=== PATIENT | male | born 1975 | race Caucasian/White ===

== ENCOUNTER 2020-04-14 16:06 | Emergency (ER) | payer OTHER, SELFPAY ==
[2020-04-14 16:09] VITALS: BP 120/71; PULSE 64; RESP 18; TEMP 37; O2SAT 98
--- NOTE | 2020-04-14 16:15 | DI.RAD.S_ITS ---
PROCEDURE: XR CHEST 1V INDICATIONS: chest pain TECHNIQUE: One view of the chest was acquired. COMPARISON: None. FINDINGS: Surgical changes and devices: None. Lungs and pleura: Lungs are clear. No pleural effusions or pneumothorax. Mediastinum: Mediastinal contours appear normal. Heart size is normal. Bones and chest wall: No suspicious bony lesions. Overlying soft tissues appear unremarkable. IMPRESSION: No acute cardiopulmonary pathology. Dictated by: Santos Butts M.D. on 04/14/2020 at 16:56 Approved by: Santos Butts M.D. on 04/14/2020 at 16:57
[2020-04-14 16:35] LABS: Add Manual Diff / Slide Review NO; Basophils Absolute Auto 100 /uL (0-100); Eosinophils Absolute Auto 200 /uL (0-450); Hematocrit 43.2 % (41-53); Hemoglobin 14.8 g/dL (13.5-17.5); Lymphocytes Absolute Auto 1600 /uL (1100-4500); Lymphocytes Percent Auto 34.2 % (25-40); Mean Corpuscular HGB Conc 34.2 % (30-36); Mean Corpuscular Hemoglobin 30.3 PG (26-34); Mean Corpuscular Volume 88.7 fL (80-100); Monocytes Absolute Auto 500 /uL (0-900); Monocytes Percent Auto 9.9 % (3-14); Neutrophils Absolute Auto 2400 /uL (1500-7000); Neutrophils Percent Auto 49.9 % (50-75); Platelet Count 200 X10^3/uL (150-400); Red Blood Cell Count 4.87 X10^6/uL (4.5-5.9); White Blood Cell Count 4.8 X10^3/uL (4.5-11.0)
[2020-04-14 16:36] VITALS: PULSE 61; O2SAT 99
--- NOTE | 2020-04-14 16:37 | ED.ARRPALP ---
HPI - Arrhythmia/Palpitations General Chief Complaint: Arrhythmia/Palpitations Stated Complaint: IRREGULAR HEART BEAT SKIPPING A BEAT Time Seen by Provider: 04/14/20 16:35 Source: patient Mode of arrival: Ambulatory History of Present Illness HPI narrative: 44-year-old gentleman with increasing palpitations over the last couple of months. He finds that he notices the palpitations more when he is slowing down to rest or to sleep. They do not cause any pain and are not associated with dyspnea or diaphoresis. They do not seem to increase with exertion nor bother him during the day or limit his activities. 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 He describes no fevers, cough, chest pain, abdominal pain, vomiting, diarrhea, exertional dyspnea, lower extremity edema. Review of Systems Review of Systems Narrative: Remainder of review of systems including constitutional, ENT, cardiovascular, respiratory, GI, , musculoskeletal, skin, neurologic and psychiatric systems reviewed and are unremarkable except as noted in HPI. Patient History Social History Smoking Status: Former smoker Smoking Status: Former smoker alcohol intake frequency: 0-2 drinks per day Exam Narrative Exam Narrative: General: Healthy appearing, in no acute distress. Able to give a complete and coherent history. Well-nourished well-developed HEENT: Moist mucous membranes, normal sclera with reactive pupils, Neck: No JVD, supple Respiratory: Lungs are clear to auscultation, no wheezing no rales no rhonchi. Full and symmetrical air movement Cardiac: Regular rate and rhythm no murmurs no bruits Abdomen: Soft nontender good bowel tones, no flank pain Skin: Warm and dry, no rashes Neurologic: Grossly neurologically intact with no obvious asymmetries or abnormalities Extremities: No trauma, well perfused Psych: Cooperative, appropriate insight and affect Initial Vital Signs Initial Vital Signs: Vital Signs Temperature 98.6 F 04/14/20 16:09 Pulse Rate 64 04/14/20 16:09 Respiratory Rate 18 04/14/20 16:09 Blood Pressure 120/71 04/14/20 16:09 Pulse Oximetry 98 04/14/20 16:09 Course Orders Ordered: ED Orders 04/14/20 16:15 XR chest 1V Stat Magnesium Stat TSH [Thyroid Stimulating Hormone] Stat EKG-12 Lead Stat 04/14/20 16:25 Complete Blood Count AUTO DIFF Stat Comprehensive Metabolic Panel Stat Lipase Stat Partial Thromboplastin Time Stat Prothrombin Time INR Stat Troponin & CK Cardiac Panel Stat Vital Signs Vital signs: Vital Signs - 8 hr 04/14/20 16:09 04/14/20 16:36 04/14/20 16:39 Temperature 98.6 F Pulse Rate 64 61 61 Respiratory Rate 18 Blood Pressure 120/71 104/70 Pulse Oximetry 98 99 98 04/14/20 17:00 04/14/20 17:30 Temperature Pulse Rate 61 57 L Respiratory Rate 11 L 11 L Blood Pressure 106/69 113/71 Pulse Oximetry 100 100 MDM - Arrhythmia/Palpitations Medical Records Attestation: I reviewed the patient's medical records. Lab Data Attestation: I reviewed the patient's lab results. Result diagrams: 04/14/20 16:25 04/14/20 16:25 Labs: Lab Results 04/14/20 04/14/20 04/14/20 Range/Units 16:15 16:15 16:25 WBC 4.8 (4.5-11.0) X10^3/uL RBC 4.87 (4.5-5.9) X10^6/uL Hgb 14.8 (13.5-17.5) g/dL Hct 43.2 (41-53) % MCV 88.7 (80-100) fL MCH 30.3 (26-34) PG MCHC 34.2 (30-36) % RDW 13.0 (11.6-14.8) % Plt Count 200 (150-400) X10^3/uL Neut % (Auto) 49.9 L (50-75) % Lymph % (Auto) 34.2 (25-40) % [place] % (Auto) 9.9 (3-14) % Eos % (Auto) 4.0 (2-4) % Baso % (Auto) 2.0 (0-2) % Neut # (Auto) 2400 (2049-9227) /uL Lymph # (Auto) 1600 (3217-9025) /uL [place] # (Auto) 500 (0-900) /uL Eos # (Auto) 200 (0-450) /uL Baso # (Auto) 100 (0-100) /uL PT (10.1-12.7) SECONDS INR (0.9-1.3) APTT (26.4-36.2) SECONDS Sodium (137-145) mmol/L Potassium (3.4-5.1) mmol/L Chloride (98-107) mmol/L Carbon Dioxide (22-32) mmol/L BUN (9-20) mg/dL Creatinine (0.66-1.25) mg/dL Estimated GFR (>60) mL/min BUN/Creatinine Ratio (6-22) Glucose (70-100) mg/dL Calcium (8.4-10.2) mg/dL Magnesium 2.1 (1.6-2.3) mg/dL Total Bilirubin (0.2-1.3) mg/dL AST (17-59) IU/L ALT (<50) IU/L Alkaline Phosphatase (38-126) U/L Total Creatine Kinase (55-170) U/L CK-MB (CK-2) (<2.37) ng/mL CK-MB (CK-2) Rel Index (1.5-5.0) % Troponin I (0.01-0.034) ng/mL Total Protein (6.3-8.2) g/dL Albumin (3.5-5.0) g/dL Globulin (1.7-4.1) g/dL Albumin/Globulin Ratio (1.0-2.8) Lipase (23-300) U/L TSH 2.03 (0.47-4.68) uIU/mL 04/14/20 04/14/20 Range/Units 16:25 16:25 WBC (4.5-11.0) X10^3/uL RBC (4.5-5.9) X10^6/uL Hgb (13.5-17.5) g/dL Hct (41-53) % MCV (80-100) fL MCH (26-34) PG MCHC (30-36) % RDW (11.6-14.8) % Plt Count (150-400) X10^3/uL Neut % (Auto) (50-75) % Lymph % (Auto) (25-40) % [place] % (Auto) (3-14) % Eos % (Auto) (2-4) % Baso % (Auto) (0-2) % Neut # (Auto) (3755-5165) /uL Lymph # (Auto) (5465-9489) /uL [place] # (Auto) (0-900) /uL Eos # (Auto) (0-450) /uL Baso # (Auto) (0-100) /uL PT 12.0 (10.1-12.7) SECONDS INR 1.0 (0.9-1.3) APTT 35 (26.4-36.2) SECONDS Sodium 138 (137-145) mmol/L Potassium 4.0 (3.4-5.1) mmol/L Chloride 104 (98-107) mmol/L Carbon Dioxide 33 H (22-32) mmol/L BUN 17 (9-20) mg/dL Creatinine 1.09 (0.66-1.25) mg/dL Estimated GFR > 60.0 (>60) mL/min BUN/Creatinine Ratio 15.6 (6-22) Glucose 92 (70-100) mg/dL Calcium 9.5 (8.4-10.2) mg/dL Magnesium (1.6-2.3) mg/dL Total Bilirubin 0.5 (0.2-1.3) mg/dL AST 29 (17-59) IU/L ALT 20 (<50) IU/L Alkaline Phosphatase 55 (38-126) U/L Total Creatine Kinase 501 H (55-170) U/L CK-MB (CK-2) 1.04 (<2.37) ng/mL CK-MB (CK-2) Rel Index 0.2 L (1.5-5.0) % Troponin I < 0.012 (0.01-0.034) ng/mL Total Protein 7.4 (6.3-8.2) g/dL Albumin 4.6 (3.5-5.0) g/dL Globulin 2.8 (1.7-4.1) g/dL Albumin/Globulin Ratio 1.6 (1.0-2.8) Lipase 144 (23-300) U/L TSH (0.47-4.68) uIU/mL Urine Dip Bedside Urine Glucose Negative Bedside Urine Bilirubin - Negative Bedside Urine Ketone - Negative Bedside Urine Occult Blood - Negative Bedside Urine pH 6.5 Bedside Urine Protein - Negative Bedside Urine Urobilinogen - Negative Bedside Urine Nitrite - Negative Bedside Urine Leukocytes - Negative Esterase Imaging Data Chest x-ray: Radiologist's Impresson: FINDINGS: Surgical changes and devices: None. Lungs and pleura: Lungs are clear. No pleural effusions or pneumothorax. Mediastinum: Mediastinal contours appear normal. Heart size is normal. Bones and chest wall: No suspicious bony lesions. Overlying soft tissues appear unremarkable. IMPRESSION: No acute cardiopulmonary pathology. Dictated by: Santos Butts M.D. on 04/14/2020 at 16:56 ECG Data Attestation: I personally reviewed and interpreted this ECG as follows: Interpretation: Sinus rhythm Are normal intervals, normal axis No acute ischemic changes Normal EKG MDM Narrative Medical decision making narrative: Lab workup and findings are unremarkable. He had an obvious PAC while we were chatting that clearly reproduced the symptoms of which he complained. No evidence of hyperthyroidism, acute coronary syndrome, significant chest pathology or other abnormalities that might explain his symptoms. Findings are reviewed in detail. He is given copies of labs and workup [place] He is safe for home discharge Discharge Plan Departure Patient Disposition: Home Clinical Impression: PAC (premature atrial contraction) Instructions: DI for Arrhythmias Activity Restrictions/Additional Instructions: Thank you for coming in to the emergency room today In the 2 hours that you are on telemetry (continuous heart rate monitor) there were no life-threatening arrhythmias appreciated. Your EKG was entirely reassuring. As we were talking, you had a PAC (premature atrial contraction) and described that as the palpitation that has been concerning you. This is a benign finding, not associated with heart attacks or any other risk factors for cardiac disease. The remainder of your workup was equally remarkable with normal blood work, normal thyroid level, and a normal chest x-ray. The things I would recommend at this point to help with the symptoms include decreasing caffeine as much as your able to tolerate, resuming your healthy exercise routine and prioritizing sleep to try for at least 8 hours night. If the PACs continue and continue to be bothersome for you, we can put you on a beta-ciara (a blood pressure and heart rate control medication) for symptomatic relief. [place]. I find your workup very reassuring and I wish you the best I have given you copies of your blood work, EKG, chest x-ray to [place]'s workup
[2020-04-14 16:39] VITALS: BP 104/70; PULSE 61; O2SAT 98
[2020-04-14 16:43] LABS: PTT Partial Thromboplastin Tim 35 SECONDS (26.4-36.2)
[2020-04-14 16:47] LABS: Alanine Aminotransferase 20 IU/L (<50); Albumin 4.6 g/dL (3.5-5.0); Albumin Globulin Ratio 1.6 (1.0-2.8); Alkaline Phosphatase 55 U/L (38-126); Aspartate Aminotransferase 29 IU/L (17-59); BUN Creatinine Ratio 15.6 (6-22); Bilirubin Total 0.5 mg/dL (0.2-1.3); Blood Urea Nitrogen 17 mg/dL (9-20); Calcium 9.5 mg/dL (8.4-10.2); Carbon Dioxide 33 mmol/L (22-32); Chloride 104 mmol/L (98-107); Creatine Kinase 501 U/L (55-170); Estimated Glomerular Filt Rate > 60.0 mL/min (>60); Globulin 2.8 g/dL (1.7-4.1); Glucose 92 mg/dL (70-100); HEMOLYSIS < 15 (0-50); Lipase 144 U/L (23-300); Sodium 138 mmol/L (137-145); Total Protein 7.4 g/dL (6.3-8.2)
[2020-04-14 16:58] LABS: Magnesium 2.1 mg/dL (1.6-2.3)
[2020-04-14 16:58] LABS: Troponin I < 0.012 ng/mL (0.01-0.034)
[2020-04-14 17:00] VITALS: BP 106/69; PULSE 61; RESP 11; O2SAT 100
[2020-04-14 17:02] LABS: CKMB % Relative Index 0.2 % (1.5-5.0); Creatine Kinase MB 1.04 ng/mL (<2.37)
[2020-04-14 17:29] LABS: Thyroid Stimulating Hormone 2.03 uIU/mL (0.47-4.68)
[2020-04-14 17:30] VITALS: BP 113/71; PULSE 57; RESP 11; O2SAT 100
== END 2020-04-14 19:26 | disposition home or self-care (01) ==
PROVIDERS: Emergency Provider Emergency Medicine
DX: I49.1 Atrial premature depolarization (principal); R07.9 Chest pain, unspecified
CPT/HCPCS: 36415; 71045; 80053; 81003; 82550; 82553; 83690; 83735; 84443; 84484; 85025; 85610; 85730; 93005; 93010; 99283; 99284

== ENCOUNTER → 2021-04-05 13:00 | Outpatient (CLI) | payer OTHER, SELFPAY ==
[2021-04-05 13:38] LABS: COVID19 -Nasal RAPID Negative (Negative)
== END ==
PROVIDERS: Referring Provider Internal Medicine; Visit Provider Internal Medicine
DX: Z20.822 Contact with and (suspected) exposure to COVID-19 (principal)
CPT/HCPCS: 87635; C9803

== ENCOUNTER → 2021-04-06 13:25 | Outpatient (CLI) | payer OTHER, SELFPAY ==
--- NOTE | 2021-04-09 08:51 | PM.PFT.1 ---
Pulmonary Function Test Referral & Results Date Patient Seen: 04/06/21 Results: The spirometry demonstrates an FVC of 6.01 L which is 101% of predicted. The FEV1 was measured at 4.11 L which is 88% of predicted. The FEV1/FVC ratio was 68 which is 86% of predicted. The maximum voluntary ventilation was normal Interpretation: This study demonstrates probably normal forced spirometry. The maybe a slight reduction FEV1 and FEV1/FVC ratio suggesting the possibility of mild obstructive lung disease Clinical correlation suggested
== END ==
PROVIDERS: Referring Provider Internal Medicine; Visit Provider Internal Medicine
DX: J45.990 Exercise induced bronchospasm (principal)
CPT/HCPCS: 94060

== ENCOUNTER → 2021-05-01 15:15 | Outpatient (CLI) | payer OTHER, SELFPAY ==
--- NOTE | 2021-05-01 | DI.MRI.S_ITS ---
PROCEDURE: MR LUMBAR SPINE WO CON INDICATIONS: Radiculopathy, lumbar region TECHNIQUE: Noncontrast sagittal T1 spin echo and T2 fast echo, sagittal STIR, axial T1 and T2 fast spin echo through the lumbar spine. In cases with scoliosis, additional coronal T2 fast spin echo may be performed. COMPARISON: None. FINDINGS: Straightening of the usual lumbar lordosis. Otherwise normal alignment. Vertebral body heights maintained. No suspicious focal marrow signal abnormality or bone marrow edema. Disc desiccation and disc height loss at both L4-L5 and L5-S1, with small annular fissures at both levels, in the bilateral foraminal zones at L4-L5 and in the left paracentral/subarticular zones at L5-S1. Normal position and appearance of the conus. Regional soft tissues unremarkable. T12-L1: No spinal canal or neural foraminal stenosis. L1-L2: No spinal canal or neural foraminal stenosis. L2-L3: Disc bulge flattens the ventral thecal sac. No mass effect upon the traversing L3 nerve roots. No neural foraminal stenosis. L3-L4: Disc bulge flattens the ventral thecal sac. No mass effect upon the traversing L4 nerve roots. No neural foraminal stenosis. Mild facet hypertrophy. L4-L5: Disc bulge flattens the ventral thecal sac. Disc material abuts but does not obviously displace the descending L5 nerve roots within the subarticular zones. Foraminal components of the disc bulge and mild facet hypertrophy combine to produce mild bilateral neural foraminal stenosis. Small foraminal zone annular fissures bilaterally. L5-S1: Diffuse disc bulge with a superimposed extrusion in the left paracentral, subarticular, and foraminal zones. There is probable impingement of the descending left S1 nerve roots in the left subarticular zone (series 4, image 33). Mild displacement of the right S1 nerve roots in the right subarticular zone. Mild neural foraminal narrowing on the left due to foraminal component of the disc extrusion and facet hypertrophy. IMPRESSION: Probable impingement of the descending left S1 nerve roots within the left subarticular zone at the L5-S1 level due to a disc extrusion with associated annular fissure. Degenerative changes at L4-L5 also present, without evidence of focal nerve root impingement. Dictated by: Jhon Carlton M.D. on 05/01/2021 at 16:40 Approved by: Jhon Carlton M.D. on 05/01/2021 at 16:44
== END ==
PROVIDERS: Referring Provider Physical Medicine & Rehabilitation Pain Medicine; Visit Provider Physical Medicine & Rehabilitation Pain Medicine
DX: M47.26 Other spondylosis with radiculopathy, lumbar region (principal); M51.17 Intervertebral disc disorders with radiculopathy, lumbosacral region
CPT/HCPCS: 72148

== ENCOUNTER → 2021-07-18 08:40 | Outpatient (CLI) | payer OTHER, SELFPAY ==
[2021-07-18 10:16] LABS: COVID19 -Nasal RAPID Negative (Negative)
== END ==
PROVIDERS: Referring Provider Physician Assistant; Visit Provider Physician Assistant
DX: Z20.822 Contact with and (suspected) exposure to COVID-19 (principal)
CPT/HCPCS: 87635; C9803

== ENCOUNTER → 2021-07-19 06:42 | Outpatient (CLI) | payer OTHER, SELFPAY ==
--- NOTE | 2021-07-25 11:09 | P.PFT.S_ITS ---
Pulmonary Function Test Referral & Results Date Patient Seen: 07/19/21 Requesting provider: Geoff Heard Results: The spirometry demonstrates an FVC of 5.76 L which is 97% of predicted. The FEV1 was measured at 3.93 L which is 84% of predicted. The FEV1/FVC ratio was 68 which is 86% of predicted. Following the administration of bronchodilator there was 9% improvement in FEV1 and a 20% improvement in FEF 25-75% Lung volumes show an SVC of 6.0 L which is 106% of predicted. The diffusing capacity was measured at 38.94 which is 103% of predicted. The maximum voluntary ventilation was minimally reduced verses normal Interpretation: This study demonstrates probably normal pulmonary function. There is a minimal reduction FEV1 and some evidence of benefit following bronchodilator particu larly small airway flow as above. However this study could also be interpreted as normal Clinical correlation suggested
== END ==
PROVIDERS: Referring Provider Internal Medicine Critical Care Medicine; Visit Provider Internal Medicine Critical Care Medicine
DX: R06.2 Wheezing (principal); J98.8 Other specified respiratory disorders
CPT/HCPCS: 94060; 94726; 94729

== ENCOUNTER 2021-12-10 13:00 | Outpatient (RCR) | payer OTHER, SELFPAY ==
--- NOTE | 2021-11-14 12:24 | PT.OIE ---
Current Diagnoses Pain in left knee (11/14/21) Pain in unspecified knee (11/14/21) Stiffness of left knee, not elsewhere classified (11/14/21) Achilles tendinitis, unspecified leg (11/14/21) Visit Care Team Role Provider Type Bebeto Roberson PA-C Attending Provider Non-Staff Family Provider Primary Care Provider Referring Provider Specialty: Medical Address: [address] [place] [address], [phone] Phone: Email: Physical Therapy Initial Evaluation PT-OP-A Visit Information Start: 11/14/21 11:01 Freq: Status: Active Protocol: Document 11/14/21 10:30 DCW (Rec: 11/14/21 11:09 DC [id number]) Out-Patient Physical Therapy Visit Information Visit Information Visit Type Initial Evaluation Visit Start Time 10:30 Visit Stop Time 11:00 Total Visit Minutes 30 Visit Number 1 Number of COUNTY CORONER Visits 0 Evaluation Information Evaluation Date 11/14/21 PT-OP-B Current Condition Start: 11/14/21 11:01 Freq: Status: Active Protocol: Document 11/14/21 10:30 DCW (Rec: 11/14/21 11:09 DC [id number]) Current Condition History of Current Condition Current Complaints Left knee pain with kneeling, full flexion, crossing legs History of Current Condition Pt is a 46 year old male presenting with a history of left knee pain. Pt admits that with his job in the [employer], he ignored pain most of the time, so he is unsure of when this actually started. Pt notes left knee bothers him most with kneeling, trying to sit back on his knees, and crossing his left leg over his right. His main exercise is running, which does not bother his knee. Notes feeling of pressure inside the knee when flexing too far, and maybe pain in the back of his knee, but he is unsure of any precise location. Notes there has been no instability, buckling, or locking of his knee. Does note that original referral also included left Achilles tendonitis, which was incredibly painful when first getting up and walking, however his has been working over his calf, which pretty much immediately took care of it, so I'm not too worried about that any more. Treatment Goals Patient/Caregiver Goals Decrease knee pain PT-OP-C Subjective Start: 11/14/21 11:01 Freq: Status: Active Protocol: Document 11/14/21 10:30 DCW (Rec: 11/14/21 11:18 DCW [id number]) OP-PT Subjective Patient Comments Patient Comments I've gotten a little lazier with Covid, and I've pretty much skipped leg day for the last five years, it's mainly cardio. Patient Reported Progress Same Patient Questionnaires Lower Extremity Functional Scale LEFS Score 54/80 = 67.5% OP-PT Pain Assessment Location Left Knee Intensity 5 Scale Used Numeric (0 - 10) Frequency Occasional Other Pain Aggravating Factors Kneeling, squatting PT-OP-F Manual Assessment Start: 11/14/21 11:01 Freq: Status: Active Protocol: Document 11/14/21 10:30 DCW (Rec: 11/14/21 11:18 DCW [id number]) Manual Assessments Soft Tissue Assessment Soft Tissue Mobility Assessment No noted pain, tenderness, or tightness in hamstrings or quad. Mild tightness in mid- medial gastrosoleus. Joint Mobility Assessment Joint Mobility Assessment Mild-moderate complaint of pain with patellar mobilization inferior<-> superior movement PT-OP-K Range of Motion Start: 11/14/21 11:01 Freq: Status: Active Protocol: Document 11/14/21 10:30 DCW (Rec: 11/14/21 11:18 DCW [id number]) Knee Goniometric Range of Motion Knee Right Knee ROM WFL Yes Patient Position Supine Flexion Active (degrees) 145 Flexion Passive (degrees) 145 Extension Active (degrees) 0 Left Knee ROM WFL Yes Patient Position Supine Flexion Active (degrees) 143 Flexion Passive (degrees) 145 Extension Active (degrees) 0 Comments Pain at end-range flexion with manual pressure, feeling of tightness, like theres a balloon. PT-OP-L Special Tests Start: 11/14/21 11:01 Freq: Status: Active Protocol: Document 11/14/21 10:30 DCW (Rec: 11/14/21 11:20 DCW [id number]) Special Tests Knee Special Tests Vuong Chondromalacia Test Results Positive Left Varus- 25 Degrees Test Results Negative Valgus- 25 Degrees Test Results Negative Posterior Draw Test Results Negative Patellar Grind Test Test Results Positive Left Patella Tap Test Results Positive Left Ana Rosa Test Test Results Negative Wolf's Test Results Negative Hawkins Test Test Results Negative Apley's Compression Test Results Negative Anterior Draw Test Results Negative PT-OP-M Strength Start: 11/14/21 11:01 Freq: Status: Active Protocol: Document 11/14/21 10:30 DCW (Rec: 11/14/21 11:20 DCW [id number]) Knee Strength Knee Manual Muscle Testing Right Flexion (S2) 5 Normal Extension (L3) 5 Normal Left Flexion (S2) 5 Normal Extension (L3) 4+ Good+ PT-OP-T Assessment and Plan Start: 11/14/21 11:01 Freq: Status: Active Protocol: Document 11/14/21 10:30 DCW (Rec: 11/14/21 12:24 DCW [id number]) Physical Therapy Assessment Rehab Potential Rehabilitation Potential Excellent Evaluation Complexity Number of Personal Factors/Comorbidities 0 Number of Body Systems Impaired 1-2 Clinical Presentation at Evaluation Stable Impairments Impairments Functional Activities, Functional Mobility,Pain,ROM, Strength Goals Three Impairment Pt experiences pain and tightness at end-range flexion in left knee Fpc Goal (LTG) Pt to demonstrate ability to sit back on his heels with no left knee pain LTG Duration 12/26/21 Two Impairment Pt performs squat with knees significantly past his toes Fpc Goal (LTG) Pt to demonstrate proper mechanics while performing squats. LTG Duration 12/26/21 One Impairment Pt does not have an appropriate home exercise program Short Term Goal (STG) Pt to be independent and compliant with an appropriate HEP STG Duration 12/05/21 Assessment Summary Assessment Pt presents with signs and symptoms consistent with mild patellofemoral DJD/ osteoarthritis. Pt main positive tests today were patella tap and patella grind tests, pt also complains of pain and tightness with end- range knee flexion on left side, either with manual pressure into flexion or when trying to sit back on his heels. Pt will likely benefit from skilled therapy focusing on improve patellar mobility, taping, VMO strengthening, and stretching. Physical Therapy Plan Frequency and Duration Frequency of Treatment 1-2x/week Duration of Treatment Six weeks Plan of Care Start Date 11/14/21 Plan of Care End Date 12/26/21 Therapeutic Interventions Therapeutic Interventions Home Exercise Program,Joint Mobilizations,Manual Therapy, Patient/Caregiver Education, Self-Care/Home Management,Soft Tissue Mobilization,Taping, Therapeutic Activities, Therapeutic Exercises Next Visit Focus/Plan Next Note Type Treatment Note Next Visit Plan Patellar mobs, VMO strengthening, quad stretching , K-tape if needed
--- NOTE | 2021-11-14 12:24 | PT.OPPOC ---
Physical, Occupational & Speech Therapy At [facility] Current Diagnoses Pain in left knee (11/14/21) Pain in unspecified knee (11/14/21) Stiffness of left knee, not elsewhere classified (11/14/21) Achilles tendinitis, unspecified leg (11/14/21) Visit Care Team Role Provider Type Bebeto Roberson PA-C Attending Provider Non-Staff Family Provider Primary Care Provider Referring Provider Specialty: Medical Address: [address] [place] [address], [id number] Phone: Email: Plan Of Care PT-OP-T Assessment and Plan Start: 11/14/21 11:01 Freq: Status: Active Protocol: Document 11/14/21 10:30 DCW (Rec: 11/14/21 12:24 DCW [id number]) Physical Therapy Assessment Rehab Potential Rehabilitation Potential Excellent Evaluation Complexity Number of Personal Factors/Comorbidities 0 Number of Body Systems Impaired 1-2 Clinical Presentation at Evaluation Stable Impairments Impairments Functional Activities, Functional Mobility,Pain,ROM, Strength Goals Three Impairment Pt experiences pain and tightness at end-range flexion in left knee Detention Goal (LTG) Pt to demonstrate ability to sit back on his heels with no left knee pain LTG Duration 12/26/21 Two Impairment Pt performs squat with knees significantly past his toes Housesmith Goal (LTG) Pt to demonstrate proper mechanics while performing squats. LTG Duration 12/26/21 One Impairment Pt does not have an appropriate home exercise program Short Term Goal (STG) Pt to be independent and compliant with an appropriate HEP STG Duration 12/05/21 Assessment Summary Assessment Pt presents with signs and symptoms consistent with mild patellofemoral DJD/ osteoarthritis. Pt main positive tests today were patella tap and patella grind tests, pt also complains of pain and tightness with end- range knee flexion on left side, either with manual pressure into flexion or when trying to sit back on his heels. Pt will likely benefit from skilled therapy focusing on improve patellar mobility, taping, VMO strengthening, and stretching. Physical Therapy Plan Frequency and Duration Frequency of Treatment 1-2x/week Duration of Treatment Six weeks Plan of Care Start Date 11/14/21 Plan of Care End Date 12/26/21 Therapeutic Interventions Therapeutic Interventions Home Exercise Program,Joint Mobilizations,Manual Therapy, Patient/Caregiver Education, Self-Care/Home Management,Soft Tissue Mobilization,Taping, Therapeutic Activities, Therapeutic Exercises Next Visit Focus/Plan Next Note Type Treatment Note Next Visit Plan Patellar mobs, VMO strengthening, quad stretching , K-tape if needed Plan of Care Dates Plan of Care Start Date 11/14/21 Plan of Care End Date 12/26/21 Electronically Signed by: Silver Sorenson, PT 11/14/21 [id number] If you are in agreement with this Plan of Care, please return a signed and dated copy. I have reviewed this Plan of Care and certify that the skilled therapy services above are required to meet the patient?s needs. Physician Signature Date Printed Name and Credentials Clinical Instructor Signature Printed Name and Credentials
--- NOTE | 2021-11-22 10:19 | PT.OTN ---
Current Diagnoses Pain in left knee (11/22/21) Stiffness of left knee, not elsewhere classified (11/22/21) Achilles tendinitis, unspecified leg (11/22/21) Physical Therapy Treatment Note PT-OP-A Visit Information Start: 11/14/21 11:01 Freq: Status: Active Protocol: Document 11/22/21 08:16 AMB (Rec: 11/22/21 09:00 AMB [id number]) Out-Patient Physical Therapy Visit Information Visit Information Visit Type Treatment Note Visit Start Time 08:15 Visit Stop Time 09:00 Total Visit Minutes 45 Visit Number 2 PT-OP-B Current Condition Start: 11/14/21 11:01 Freq: Status: Active Protocol: Document 11/14/21 10:30 DCW (Rec: 11/14/21 11:09 DCW [id number]) Current Condition History of Current Condition Current Complaints Left knee pain with kneeling, full flexion, crossing legs History of Current Condition Pt is a 46 year old male presenting with a history of left knee pain. Pt admits that with his job in the [employer], he ignored pain most of the time, so he is unsure of when this actually started. Pt notes left knee bothers him most with kneeling, trying to sit back on his knees, and crossing his left leg over his right. His main exercise is running, which does not bother his knee. Notes feeling of pressure inside the knee when flexing too far, and maybe pain in the back of his knee, but he is unsure of any precise location. Notes there has been no instability, buckling, or locking of his knee. Does note that original referral also included left Graff's tendonitis, which was incredibly painful when first getting up and walking, however his has been working over his calf, which pretty much immediately took care of it, so I'm not too worried about that any more. Treatment Goals Patient/Caregiver Goals Decrease knee pain PT-OP-C Subjective Start: 11/14/21 11:01 Freq: Status: Active Protocol: Document 11/22/21 08:15 AMB (Rec: 11/22/21 10:18 AMB [id number]) OP-PT Subjective Patient Comments Patient Comments Pt states pain is worst with kneeling, Left leg feels weaker when coming up from deep squat. PT-OP-F Manual Assessment Start: 11/14/21 11:01 Freq: Status: Active Protocol: Document 11/14/21 10:30 DCW (Rec: 11/14/21 11:18 DCW [id number]) Manual Assessments Soft Tissue Assessment Soft Tissue Mobility Assessment No noted pain, tenderness, or tightness in hamstrings or quad. Mild tightness in mid- medial gastrosoleus. Joint Mobility Assessment Joint Mobility Assessment Mild-moderate complaint of pain with patellar mobilization inferior<-> superior movement PT-OP-K Range of Motion Start: 11/14/21 11:01 Freq: Status: Active Protocol: Document 11/14/21 10:30 DCW (Rec: 11/14/21 11:18 DCW [id number]) Knee Goniometric Range of Motion Knee Right Knee ROM WFL Yes Patient Position Supine Flexion Active (degrees) 145 Flexion Passive (degrees) 145 Extension Active (degrees) 0 Left Knee ROM WFL Yes Patient Position Supine Flexion Active (degrees) 143 Flexion Passive (degrees) 145 Extension Active (degrees) 0 Comments Pain at end-range flexion with manual pressure, feeling of tightness, like theres a balloon. PT-OP-L Special Tests Start: 11/14/21 11:01 Freq: Status: Active Protocol: Document 11/14/21 10:30 DCW (Rec: 11/14/21 11:20 DCW [id number]) Special Tests Knee Special Tests Vuong Chondromalacia Test Results Positive Left Varus- 25 Degrees Test Results Negative Valgus- 25 Degrees Test Results Negative Posterior Draw Test Results Negative Patellar Grind Test Test Results Positive Left Patella Tap Test Results Positive Left Ana Rosa Test Test Results Negative Wolf's Test Results Negative Hawkins Test Test Results Negative Apley's Compression Test Results Negative Anterior Draw Test Results Negative PT-OP-M Strength Start: 11/14/21 11:01 Freq: Status: Active Protocol: Document 11/14/21 10:30 DCW (Rec: 11/14/21 11:20 DCW [id number]) Knee Strength Knee Manual Muscle Testing Right Flexion (S2) 5 Normal Extension (L3) 5 Normal Left Flexion (S2) 5 Normal Extension (L3) 4+ Good+ PT-OP-Q Treatments Start: 11/14/21 11:01 Freq: Status: Active Protocol: Document 11/22/21 08:15 AMB (Rec: 11/22/21 10:18 AMB [id number]) Cardio Equipment Bicycle (Upright) Duration (Minutes) 5 Resistance 8 Gym Equipment Shuttle Recovery Unilateral Squats Details 50>75>50 Shuttle Recovery Platform Stable Reps/Time no pain with 50, then discomfort with 75# Therapeutic Exercises Supine Exercises IT band stretches Supine Exercise Name passive and with band Side left Reps/Minutes 30x4 1 Supine Exercise Name Bridges with adduction Side bilateral Equipment Used soft ball between knees Reps/Minutes 2x10 Manual Therapy Treatment Soft Tissue Mobilization IT band Mobilization Type Rolling Intensity/Depth Moderate Body Position Hooklying Comments instruction in foam rolling/ rolling pin patellar tendon Mobilization Type Cross-Friction Intensity/Depth Moderate Body Position Supine PT-OP-T Assessment and Plan Start: 11/14/21 11:01 Freq: Status: Active Protocol: Document 11/22/21 08:16 AMB (Rec: 11/22/21 09:00 AMB [id number]) Physical Therapy Assessment Goals Three Impairment Pt experiences pain and tightness at end-range flexion in left knee Shelter Goal (LTG) Pt to demonstrate ability to sit back on his heels with no left knee pain LTG Duration 12/26/21 Two Impairment Pt performs squat with knees significantly past his toes Shelter Goal (LTG) Pt to demonstrate proper mechanics while performing squats. LTG Duration 12/26/21 One Impairment Pt does not have an appropriate home exercise program Short Term Goal (STG) Pt to be independent and compliant with an appropriate HEP STG Duration 12/05/21 Assessment Summary Assessment Cal had increased pain with single leg squats on the shuttle recovery but not at 50 #. Did well with stretching, supine strengthening. Continue to progress HEP. Physical Therapy Plan Next Visit Focus/Plan Next Note Type Treatment Note Next Visit Plan Patellar mobs, VMO strengthening, quad stretching , K-tape if needed. Review HEP: IT band stretch and roll , bridges. Re-visit shuttle recovery.
--- NOTE | 2021-11-29 17:25 | PT.OTN ---
Current Diagnoses Pain in left knee (11/29/21) Stiffness of left knee, not elsewhere classified (11/29/21) Achilles tendinitis, unspecified leg (11/29/21) Physical Therapy Treatment Note PT-OP-A Visit Information Start: 11/14/21 11:01 Freq: Status: Active Protocol: Document 11/29/21 13:49 NBM (Rec: 11/29/21 14:57 NBM [id number]) Out-Patient Physical Therapy Visit Information Visit Information Visit Type Treatment Note Visit Start Time 13:47 Visit Stop Time 14:35 Total Visit Minutes 48 Visit Number 3 Number of FITNESS FLOOR ATTENDANT Visits 1 PT-OP-B Current Condition Start: 11/14/21 11:01 Freq: Status: Active Protocol: Document 11/14/21 10:30 DCW (Rec: 11/14/21 11:09 DCW [id number]) Current Condition History of Current Condition Current Complaints Left knee pain with kneeling, full flexion, crossing legs History of Current Condition Pt is a 46 year old male presenting with a history of left knee pain. Pt admits that with his job in the [employer], he ignored pain most of the time, so he is unsure of when this actually started. Pt notes left knee bothers him most with kneeling, trying to sit back on his knees, and crossing his left leg over his right. His main exercise is running, which does not bother his knee. Notes feeling of pressure inside the knee when flexing too far, and maybe pain in the back of his knee, but he is unsure of any precise location. Notes there has been no instability, buckling, or locking of his knee. Does note that original referral also included left Hue's tendonitis, which was incredibly painful when first getting up and walking, however his has been working over his calf, which pretty much immediately took care of it, so I'm not too worried about that any more. Treatment Goals Patient/Caregiver Goals Decrease knee pain PT-OP-C Subjective Start: 11/14/21 11:01 Freq: Status: Active Protocol: Document 11/29/21 13:49 NBM (Rec: 11/29/21 14:57 NBM [id number]) OP-PT Subjective Patient Comments Patient Comments Pt states he has been doing his exercises and stretches and his pain is doing better. massages his calves to help w/ Achilles tendonitis. PT-OP-F Manual Assessment Start: 11/14/21 11:01 Freq: Status: Active Protocol: Document 11/14/21 10:30 DCW (Rec: 11/14/21 11:18 DCW [id number]) Manual Assessments Soft Tissue Assessment Soft Tissue Mobility Assessment No noted pain, tenderness, or tightness in hamstrings or quad. Mild tightness in mid- medial gastrosoleus. Joint Mobility Assessment Joint Mobility Assessment Mild-moderate complaint of pain with patellar mobilization inferior<-> superior movement PT-OP-K Range of Motion Start: 11/14/21 11:01 Freq: Status: Active Protocol: Document 11/14/21 10:30 DCW (Rec: 11/14/21 11:18 DCW [id number]) Knee Goniometric Range of Motion Knee Right Knee ROM WFL Yes Patient Position Supine Flexion Active (degrees) 145 Flexion Passive (degrees) 145 Extension Active (degrees) 0 Left Knee ROM WFL Yes Patient Position Supine Flexion Active (degrees) 143 Flexion Passive (degrees) 145 Extension Active (degrees) 0 Comments Pain at end-range flexion with manual pressure, feeling of tightness, like theres a balloon. PT-OP-L Special Tests Start: 11/14/21 11:01 Freq: Status: Active Protocol: Document 11/14/21 10:30 DCW (Rec: 11/14/21 11:20 DCW [id number]) Special Tests Knee Special Tests Vuong Chondromalacia Test Results Positive Left Varus- 25 Degrees Test Results Negative Valgus- 25 Degrees Test Results Negative Posterior Draw Test Results Negative Patellar Grind Test Test Results Positive Left Patella Tap Test Results Positive Left Ana Rosa Test Test Results Negative Wolf's Test Results Negative Hawkins Test Test Results Negative Apley's Compression Test Results Negative Anterior Draw Test Results Negative PT-OP-M Strength Start: 11/14/21 11:01 Freq: Status: Active Protocol: Document 11/14/21 10:30 DCW (Rec: 11/14/21 11:20 DCW [id number]) Knee Strength Knee Manual Muscle Testing Right Flexion (S2) 5 Normal Extension (L3) 5 Normal Left Flexion (S2) 5 Normal Extension (L3) 4+ Good+ PT-OP-Q Treatments Start: 11/14/21 11:01 Freq: Status: Active Protocol: Document 11/29/21 13:49 [facility] (Rec: 11/29/21 14:57 [facility] [id number]) Cardio Equipment Bicycle (Upright) Duration (Minutes) 5 Resistance 8 Seat Position 9 Gym Equipment Shuttle Recovery Unilateral Squats Details DL 50#x12, SL Resistance 50>75 Shuttle Recovery Platform Stable Reps/Time no pain with 50, 75# L knee discomfort after 10 reps Therapeutic Exercises Supine Exercises HS stretch Supine Exercise Name added to HEP Side bilateral Reps/Minutes w/ strap IT band stretches Supine Exercise Name HEP review Side left Equipment Used w/ strap Reps/Minutes 1 x 60 1 Supine Exercise Name Bridges with adduction Side bilateral Equipment Used soft ball between knees Reps/Minutes 2x10 Comments cues for toes fwd Prone Exercises Quad stretch Prone Exercise Name added to HEP Side left Equipment Used w/strap Comments cue for knee/hip alignment Standing Exercises Calf Stretch Standing Exercise Name added to HEP Side bilateral Equipment Used 6 stairs Reps/Minutes 1x60 ea Comments gastroc, soleus Manual Therapy Treatment Soft Tissue Mobilization Calf Body Location L gastrocnemius Mobilization Type Instrument Assisted,Myofascial Release,Rolling,Sustained Pressure Intensity/Depth Moderate Body Position Hooklying IT band Body Location L IT band Mobilization Type Cross-Friction,Instrument Assisted,Rolling,Sustained Pressure Intensity/Depth Moderate Body Position Hooklying Comments Massage wand patellar tendon Mobilization Type Cross-Friction Intensity/Depth Moderate Body Position Supine Self-Care/Home Management Treatment Education Patient Education Home Exercise Program Other Education Discussed holding stretch at least 30 seconds for carryover . Added to HEP: HS stretch w/ strap, prone quad stretch w/ strap, calf stretch on step ( gastroc/soleus) - HO given. PT-OP-T Assessment and Plan Start: 11/14/21 11:01 Freq: Status: Active Protocol: Document 11/29/21 13:49 [facility] (Rec: 11/29/21 14:57 [facility] [id number]) Physical Therapy Assessment Goals Three Impairment Pt experiences pain and tightness at end-range flexion in left knee [employer] Goal (LTG) Pt to demonstrate ability to sit back on his heels with no left knee pain LTG Duration 12/26/21 Two Impairment Pt performs squat with knees significantly past his toes Prison Goal (LTG) Pt to demonstrate proper mechanics while performing squats. LTG Duration 12/26/21 One Impairment Pt does not have an appropriate home exercise program Short Term Goal (STG) Pt to be independent and compliant with an appropriate HEP STG Duration 12/05/21 Assessment Summary Assessment Treatment focus today on HEP review and progression, LE strengthening and manual therapy. Pt requires cues for hip external rotation with closed-chain LE exercises. Pt was able to tolerate 10 reps L single leg squat on the shuttle recovery at 75# today before experiencing L knee discomfort. Pt's palpable tightness in L IT band, gastrocnemius and soleus decreased w/ manual therapy. Discussed holding stretch at least 30 seconds for carryover . Added to HEP: HS stretch w/ strap, prone quad stretch w/ strap, calf stretch on step ( gastroc/soleus) - HO given. Physical Therapy Plan Next Visit Focus/Plan Next Note Type Treatment Note Next Visit Plan Patellar mobs, VMO strengthening, quad stretching , K-tape if needed. Finish w/ ice. Review HEP: IT band w/ foam roll, stretching HEP (HS, Quad , Gastroc, Soleus) Re-visit shuttle recovery.
--- NOTE | 2021-12-10 13:45 | PT.OTN ---
Current Diagnoses Pain in left knee (12/10/21) Stiffness of left knee, not elsewhere classified (12/10/21) Achilles tendinitis, unspecified leg (12/10/21) Physical Therapy Treatment Note PT-OP-A Visit Information Start: 11/14/21 11:01 Freq: Status: Active Protocol: Document 12/10/21 13:00 SP (Rec: 12/10/21 13:52 SP [id number]) Out-Patient Physical Therapy Visit Information Visit Information Visit Type Treatment Note Visit Start Time 13:00 Visit Stop Time 13:45 Total Visit Minutes 45 Visit Number 4 Number of THEATRICAL RIGGER Visits 2 Evaluation Information Evaluation Date 11/14/21 PT-OP-B Current Condition Start: 11/14/21 11:01 Freq: Status: Active Protocol: Document 11/14/21 10:30 DCW (Rec: 11/14/21 11:09 DCW [id number]) Current Condition History of Current Condition Current Complaints Left knee pain with kneeling, full flexion, crossing legs History of Current Condition Pt is a 46 year old male presenting with a history of left knee pain. Pt admits that with his job in the [employer], he ignored pain most of the time, so he is unsure of when this actually started. Pt notes left knee bothers him most with kneeling, trying to sit back on his knees, and crossing his left leg over his right. His main exercise is running, which does not bother his knee. Notes feeling of pressure inside the knee when flexing too far, and maybe pain in the back of his knee, but he is unsure of any precise location. Notes there has been no instability, buckling, or locking of his knee. Does note that original referral also included left Hue's tendonitis, which was incredibly painful when first getting up and walking, however his has been working over his calf, which pretty much immediately took care of it, so I'm not too worried about that any more. Treatment Goals Patient/Caregiver Goals Decrease knee pain PT-OP-C Subjective Start: 11/14/21 11:01 Freq: Status: Active Protocol: Document 12/10/21 13:00 SP (Rec: 12/10/21 13:52 SP [id number]) OP-PT Subjective Patient Comments Patient Comments Pt reports considerably better , compliant with HEP stretching and feel doing alot better. He has new referral for R shld, had surgery last summer and wants to focus more on that, having pain now and thinks compensating. Would prefer to DC today with L knee and next appt start with rehab for R shld. PT-OP-F Manual Assessment Start: 11/14/21 11:01 Freq: Status: Active Protocol: Document 11/14/21 10:30 DCW (Rec: 11/14/21 11:18 DCW [id number]) Manual Assessments Soft Tissue Assessment Soft Tissue Mobility Assessment No noted pain, tenderness, or tightness in hamstrings or quad. Mild tightness in mid- medial gastrosoleus. Joint Mobility Assessment Joint Mobility Assessment Mild-moderate complaint of pain with patellar mobilization inferior<-> superior movement PT-OP-K Range of Motion Start: 11/14/21 11:01 Freq: Status: Active Protocol: Document 11/14/21 10:30 DCW (Rec: 11/14/21 11:18 DCW [id number]) Knee Goniometric Range of Motion Knee Right Knee ROM WFL Yes Patient Position Supine Flexion Active (degrees) 145 Flexion Passive (degrees) 145 Extension Active (degrees) 0 Left Knee ROM WFL Yes Patient Position Supine Flexion Active (degrees) 143 Flexion Passive (degrees) 145 Extension Active (degrees) 0 Comments Pain at end-range flexion with manual pressure, feeling of tightness, like theres a balloon. PT-OP-L Special Tests Start: 11/14/21 11:01 Freq: Status: Active Protocol: Document 11/14/21 10:30 DCW (Rec: 11/14/21 11:20 DCW [id number]) Special Tests Knee Special Tests Vuong Chondromalacia Test Results Positive Left Varus- 25 Degrees Test Results Negative Valgus- 25 Degrees Test Results Negative Posterior Draw Test Results Negative Patellar Grind Test Test Results Positive Left Patella Tap Test Results Positive Left Ana Rosa Test Test Results Negative Wolf's Test Results Negative Hawkins Test Test Results Negative Apley's Compression Test Results Negative Anterior Draw Test Results Negative PT-OP-M Strength Start: 11/14/21 11:01 Freq: Status: Active Protocol: Document 11/14/21 10:30 DCW (Rec: 11/14/21 11:20 DCW [id number]) Knee Strength Knee Manual Muscle Testing Right Flexion (S2) 5 Normal Extension (L3) 5 Normal Left Flexion (S2) 5 Normal Extension (L3) 4+ Good+ PT-OP-Q Treatments Start: 11/14/21 11:01 Freq: Status: Active Protocol: Document 12/10/21 13:00 SP (Rec: 12/10/21 13:52 SP [id number]) Cardio Equipment Bicycle (Upright) Duration (Minutes) 5 Resistance 8 Seat Position 9 Therapeutic Exercises Standing Exercises squats Standing Exercise Name added to HEP Resistance 25# DB Reps/Minutes 2x10 Comments good knee alignemtn post cues knee with and behind toes. SL sit<>Stands Standing Exercise Name added toHEP Comments cued knee alignment SL star tap/glide Standing Exercise Name added toHEP Side left Comments cued knee alignment SL lift Standing Exercise Name added to HEP Side left Comments cued knee alignment Other Exercises foam roller Other Exercise Name reviewed self hep: quad, ITB, HS, calf Side left Comments good form Self-Care/Home Management Treatment Education Patient Education Body Mechanics,Home Exercise Program,Posture Other Education Added standing progressive strengthening double and single leg stance stability progression to continue in home gym, see ther ex today details. GOod form post cues. Good form with self use foam roller discussed added at home in past tx. Pt feels confident with stretching HEP. PT-OP-T Assessment and Plan Start: 11/14/21 11:01 Freq: Status: Active Protocol: Document 12/10/21 13:00 SP (Rec: 12/10/21 13:52 SP [id number]) Physical Therapy Assessment Goals Three Impairment Pt experiences pain and tightness at end-range flexion in left knee Half-Way Goal (LTG) Pt to demonstrate ability to sit back on his heels with no left knee pain 12/10/21: GOAL MET: Pt reports hasn't tried since started PT . Painfree ease demonstration today on yoga mat sitting back in heels post bike warm up. LTG Duration 12/26/21-GOAL MET Two Impairment Pt performs squat with knees significantly past his toes Half-Way Goal (LTG) Pt to demonstrate proper mechanics while performing squats. 12/10/21: GOAL MET, instructed mechanics air squat and lifting 25# carton, knees with and behind toes. LTG Duration 12/26/21 GOAL MET One Impairment Pt does not have an appropriate home exercise program Short Term Goal (STG) Pt to be independent and compliant with an appropriate HEP 12/10/21: Good response Stretching HEP, added air squats, band walks, SLS star taps various angles, SLS STS from elevated surface, RDL AROM, can progress low wt forward. PRovided HOs. STG Duration 12/05/21 GOAL MET Progress Towards Goals Progress Towards Goals Progressing Toward Goals Progress Comments MET all GOALS Assessment Summary Assessment Pt demonstrated little L knee med/lat weakness during SLS added HEP, good self corrections AROM/ alignment painfree and AROM to start and understanding can add wt held for progression when ready. Pt felt great end tx and added HEP for progression strengthening LLE. Physical Therapy Plan Frequency and Duration Frequency of Treatment 1-2x/week Duration of Treatment Six weeks Plan of Care Start Date 11/14/21 Plan of Care End Date 12/26/21 Therapeutic Interventions Therapeutic Interventions Home Exercise Program,Joint Mobilizations,Manual Therapy, Patient/Caregiver Education, Self-Care/Home Management,Soft Tissue Mobilization,Taping, Therapeutic Activities, Therapeutic Exercises Discharge Physical Therapy Discharge Reasons Patient Request Discharge Comments Pt met all goals and requested self DC, will continue progress strengthening on own with give today. Wants PT to DC and next visit scheduled start new referal of [facility]za. Next Visit Focus/Plan Next Note Type Treatment Note Next Visit Plan Patellar mobs, VMO strengthening, quad stretching , K-tape if needed. Finish w/ ice. Review HEP: IT band w/ foam roll, stretching HEP (HS, Quad , Gastroc, Soleus) Re-visit shuttle recovery.
== END 2021-12-14 09:14 ==
LOC: PHYS 13:00
PROVIDERS: Family Provider Physician Assistant; PCP Physician Assistant; Referring Provider Physician Assistant; Visit Provider Physician Assistant
DX: M76.60 Achilles tendinitis, unspecified leg (principal); M25.562 Pain in left knee; M25.662 Stiffness of left knee, not elsewhere classified
CPT/HCPCS: 97110; 97140; 97161; 97535

== ENCOUNTER 2022-01-16 13:30 | Outpatient (RCR) | payer OTHER, SELFPAY ==
--- NOTE | 2021-12-26 15:30 | OT.OP.EVAL ---
Visit Care Team Role Provider Type Bebeto Roberson PA-C Attending Provider Non-Staff Family Provider Primary Care Provider Referring Provider Specialty: Medical Address: [address] [place] [address], [address] Phone: Email: Occupational Therapy Initial Evaluation OT Outpatient Adult Evaluation Start: 12/28/21 14:32 Freq: Status: Active Protocol: Document 12/26/21 15:30 AMS (Rec: 12/28/21 15:00 AMS [id number]) General Information - Adult Plan of Care Dates 12/26/21 - 03/06/22 Insurance Information Bebeto Roberson MD Visit Start Time 12:30 Visit Stop Time 13:00 Total Visit Minutes 30 Treatment Setting Outpatient Care Note Type Initial Evaluation Referring Physician Bebeto Roberson MD Reason for Referral CTS R worse than L Goals Treatment Development of HEP. Instructed in passive wrist/digit flexors and extensors. Recommended daily execution w/ hold of 20 to 30 seconds. Instructed in tendon glides. Recommended daily execution w/ ~ 5 cycles; reviewed importance of returning to neutral between glides. Instructed in carpal ligament stretch at wall; hold for 20 to 30 seconds daily 3 to 4 repetitions. Instructed in self myofascial release of thumb add; hold for 20 to 30 second w/ switching for 2 to 3 repetitions. Denied need for written and/or visual instructions for home recommendations. Recommended night splinting. Short Term Goals 1. Cal will be able to identify 2 to 3 compensatory strategies and/or different types of equipment to utilize in the home and/or work environments that alleviate presenting symptoms of the distal upper extremities. 2. Cal will verbally report 100% understanding of joint protection principles. Document Clerk Goals 1. Cal will be modified independent with execution of home exercise program utilizing provided written and visual instructions from therapist. Assessment/Plan Treatment Assessment Patient is a 46 year-old R hand dominant male referred to outpatient OT by PCP secondary to CTS w/ symptoms of the R worse than the left. PMH reviewed; significant for R shoulder surgery, bicep tendonosis. 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 QuickDASH UE Outcome Measure Score = 29.55; QuickDASH UE Outcome Work Module Score = 75 .0; QuickDASH UE Outcome Sports/Performing Arts Module Score = 75.0. Patient indicated 6 out of 10 on the Pain Assessment Grid bilaterally relative to distal UEs. (-) significant changes reported w/ Reverse Phalen's Test. Tendency into neutral position of MPJ/IPJ w/ intermittent ext at IPJ; education provided re: functional thumb positioning w / grasping. Discussion re: frequent changes in position(s ) of fingers/hands and avoiding sustained positions of hand(s). Mild tightness of bilateral thumb add. Able to execute tendon glides w/ some stiffness reported. Comment 1 x a week for 10 weeks Therapeutic Contents Active Range of Motion, Adaptive Equipment Education, Client Education,Functional Activities,Home Exercise Program,Joint Protection, Manual Therapy,Education, Neurodevelopment Treatment, Neuromuscular Re-Education, Self-Care,Stretching/ Flexibility Activities, Therapeutic Activities, Therapeutic Exercises, Modalities Modalities As Needed,As Prescribed Additional Types of Modalities Heat/Cold/Contrast/Ultrasound/ Paraffin bath
--- NOTE | 2022-01-01 13:56 | OT.OP.TRT ---
Visit Care Team Role Provider Type Bebeto Roberson PA-C Attending Provider Non-Staff Family Provider Primary Care Provider Referring Provider Specialty: Medical Address: [address] [place] [address], [address] Phone: Email: Occupational Therapy Treatment Note OT Outpatient Treatment Note - Adult Start: 12/28/21 14:32 Freq: Status: Active Protocol: Document 01/01/22 13:47 AMS (Rec: 01/01/22 13:56 AMS [id number]) OT Outpatient Adult Treatment Note Session Time Visit Start Time 09:30 Visit Stop Time 09:50 Total Visit Minutes 20 Visit Information Plan of Care Dates 12/26/21 - 03/06/22 Insurance Information Prime Setting Treatment Setting Outpatient Care Visit Type Note Type Treatment Note General Information General Information Patient is a 46 year-old R hand dominant male referred to outpatient OT by PCP secondary to CTS w/ symptoms of the R worse than the left. PMH reviewed; significant for R shoulder surgery, bicep tendonosis. 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 QuickDASH UE Outcome Measure Score = 29.55; QuickDASH UE Outcome Work Module Score = 75 .0; QuickDASH UE Outcome Sports/Performing Arts Module Score = 75.0. Patient indicated 6 out of 10 on the Pain Assessment Grid bilaterally relative to distal UEs. (-) significant changes reported w/ Reverse Phalen's Test. Tendency into neutral position of MPJ/IPJ w/ intermittent ext at IPJ; education provided re: functional thumb positioning w / grasping. Discussion re: frequent changes in position(s ) of fingers/hands and avoiding sustained positions of hand(s). Mild tightness of bilateral thumb add. Able to execute tendon glides w/ some stiffness reported. - - Objective Objective Measurements Please refer to below for progress towards meeting established OT goals: Short Term Goals 1. Cal will be able to identify 2 to 3 compensatory strategies and/or different types of equipment to utilize in the home and/or work environments that alleviate presenting symptoms of the distal upper extremities. 2. Cal will verbally report 100% understanding of joint protection principles. Shelter Goals 1. Cal will be modified independent with execution of home exercise program utilizing provided written and visual instructions from therapist. - Treatment 2 Descriptor HEP. Reviewed HEP. 1 Descriptor Ultrasound. Pulsed setting. 2. 0 w/cm2. 20% duty cycle. Address inflammation. Volar surface of R wrist. Skin intact pre- and post- treatment. - Assessment Assessment of Improvement Short treatment session. Reviewed HEP. Reduced frequency of treatment based on patient feedback. (+) report of compliance w/ HEP; reviewed importance of returning to midline/neutral between glides. Reviewed passive range of motion wrist/ digit stretches and self- myofascial techniques. Instructed in 2 different techniques for median nerve glides. Denied need for verbal and/or written instructions for HEP. Discussed potential use of [employer] computer mouse . Discussed reduction of treatment to 1 x every 2 weeks based on patient feedback; will look to transition to HEP w/ focus on outpatient PT. Recommended consulting w/ front office clerk staff to be placed on waitlist for PT; informed primary PT. - Plan Therapy Recommendations Advance per Rehabilitation Protocol
--- NOTE | 2022-01-16 14:22 | OT.OP.DC ---
Visit Care Team Role Provider Type Bebeto Roberson PA-C Attending Provider Non-Staff Family Provider Primary Care Provider Referring Provider Address: [address] [place] [address], [phone] Phone: Email: OT Outpatient OT Outpatient Adult Evaluation Start: 12/28/21 14:32 Freq: Status: Active Protocol: Document 12/26/21 15:30 AMS (Rec: 12/28/21 15:00 AMS [id number]) General Information - Adult Visit Information Plan of Care Dates 12/26/21 - 03/06/22 Insurance Information Bebeto Roberson MD Session Time Visit Start Time 12:30 Visit Stop Time 13:00 Total Visit Minutes 30 Setting Treatment Setting Outpatient Care Visit Type Note Type Initial Evaluation Referral Referring Physician Bebeto Roberson MD Reason for Referral CTS R worse than L Goals Treatment Treatment Development of HEP. Instructed in passive wrist/digit flexors and extensors. Recommended daily execution w/ hold of 20 to 30 seconds. Instructed in tendon glides. Recommended daily execution w/ ~ 5 cycles; reviewed importance of returning to neutral between glides. Instructed in carpal ligament stretch at wall; hold for 20 to 30 seconds daily 3 to 4 repetitions. Instructed in self myofascial release of thumb add; hold for 20 to 30 second w/ switching for 2 to 3 repetitions. Denied need for written and/or visual instructions for home recommendations. Recommended night splinting. Short Term Goals Short Term Goals 1. Cal will be able to identify 2 to 3 compensatory strategies and/or different types of equipment to utilize in the home and/or work environments that alleviate presenting symptoms of the distal upper extremities. 2. Cal will verbally report 100% understanding of joint protection principles. Editorial Specialist Goals [facility] Goals 1. Cal will be modified independent with execution of home exercise program utilizing provided written and visual instructions from therapist. Assessment/Plan Assessment Treatment Assessment Patient is a 46 year-old R hand dominant male referred to outpatient OT by PCP secondary to CTS w/ symptoms of the R worse than the left. PMH reviewed; significant for R shoulder surgery, bicep tendonosis. 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 QuickDASH UE Outcome Measure Score = 29.55; QuickDASH UE Outcome Work Module Score = 75 .0; QuickDASH UE Outcome Sports/Performing Arts Module Score = 75.0. Patient indicated 6 out of 10 on the Pain Assessment Grid bilaterally relative to distal UEs. (-) significant changes reported w/ Reverse Phalen's Test. Tendency into neutral position of MPJ/IPJ w/ intermittent ext at IPJ; education provided re: functional thumb positioning w / grasping. Discussion re: frequent changes in position(s ) of fingers/hands and avoiding sustained positions of hand(s). Mild tightness of bilateral thumb add. Able to execute tendon glides w/ some stiffness reported. Plan Comment 1 x a week for 10 weeks Therapeutic Contents Active Range of Motion, Adaptive Equipment Education, Client Education,Functional Activities,Home Exercise Program,Joint Protection, Manual Therapy,Education, Neurodevelopment Treatment, Neuromuscular Re-Education, Self-Care,Stretching/ Flexibility Activities, Therapeutic Activities, Therapeutic Exercises, Modalities Modalities As Needed,As Prescribed Additional Types of Modalities Heat/Cold/Contrast/Ultrasound/ Paraffin bath Functional Wrist/Hand Scan Hand Side Sensory Assessment Sensory Profile2 OT Outpatient Treatment Note - Adult Start: 12/28/21 14:32 Freq: Status: Active Protocol: Document 01/16/22 14:15 AMS (Rec: 01/16/22 14:21 AMS [id number]) OT Outpatient Adult Treatment Note Session Time Visit Start Time 13:30 Visit Stop Time 13:50 Total Visit Minutes 20 Visit Information Plan of Care Dates 12/26/21 - 03/06/22 Insurance Information Prime Setting Treatment Setting Outpatient Care Visit Type Note Type Treatment Note General Information General Information Patient is a 46 year-old R hand dominant male referred to outpatient OT by PCP secondary to CTS w/ symptoms of the R worse than the left. PMH reviewed; significant for R shoulder surgery, bicep tendonosis. 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 QuickDASH UE Outcome Measure Score = 29.55; QuickDASH UE Outcome Work Module Score = 75 .0; QuickDASH UE Outcome Sports/Performing Arts Module Score = 75.0. Patient indicated 6 out of 10 on the Pain Assessment Grid bilaterally relative to distal UEs. (-) significant changes reported w/ Reverse Phalen's Test. Tendency into neutral position of MPJ/IPJ w/ intermittent ext at IPJ; education provided re: functional thumb positioning w / grasping. Discussion re: frequent changes in position(s ) of fingers/hands and avoiding sustained positions of hand(s). Mild tightness of bilateral thumb add. Able to execute tendon glides w/ some stiffness reported. - Subjective Observations Indication of 2 out of 10 on the Pain Assessment Grid; QuickDASH UE Outcome Measure Score = 11.36. - Objective Objective Measurements Please refer to below for progress towards meeting established OT goals: Short Term Goals ALL GOALS MET 01/16/22 1. Cal will be able to identify 2 to 3 compensatory strategies and/or different types of equipment to utilize in the home and/or work environments that alleviate presenting symptoms of the distal upper extremities. 2. Cal will verbally report 100% understanding of joint protection principles. Editorial Specialist Goals ALL GOALS MET 01/16/22 1. Cal will be modified independent with execution of home exercise program utilizing provided written and visual instructions from therapist. - Treatment 2 Descriptor HEP. Reviewed HEP. 1 Descriptor Ultrasound. Pulsed setting. 2. 0 w/cm2. 20% duty cycle. Address inflammation. Volar surface of R wrist. Skin intact pre- and post- treatment. - Assessment Assessment of Improvement Short treatment session. Notified of opening for patient to be seen by outpatient CARRIER WASHER 14:30; denied need to be seen given that he was given many exercises at his previous outpatient PT appointment. Met all goals. Thus, recommend d/c to HEP. - Plan Therapy Recommendations Discharge from Occupational Therapy
== END 2022-01-17 13:36 | disposition home or self-care (01) ==
LOC: OT 13:30
PROVIDERS: Family Provider Physician Assistant; PCP Physician Assistant; Referring Provider Physician Assistant; Visit Provider Physician Assistant
DX: M79.641 Pain in right hand (principal); R27.8 Other lack of coordination
CPT/HCPCS: 97035; 97110; 97165

== ENCOUNTER 2022-04-03 16:45 | Outpatient (RCR) | payer OTHER, SELFPAY ==
--- NOTE | 2021-12-25 14:23 | PT.OIE ---
Current Diagnoses Pain in right shoulder (12/25/21) Pain in unspecified shoulder (12/25/21) Stiffness of right shoulder, not elsewhere classified (12/25/21) Visit Care Team Role Provider Type Bebeto Roberson PA-C Attending Provider Non-Staff Family Provider Primary Care Provider Referring Provider Specialty: Medical Address: [address] [place] [address], [address] Phone: Email: Physical Therapy Initial Evaluation PT-OP-A Visit Information Start: 12/25/21 13:47 Freq: Status: Active Protocol: Document 12/25/21 12:00 DCW (Rec: 12/25/21 13:58 [facility] [id number]) Out-Patient Physical Therapy Visit Information Visit Information Visit Type Initial Evaluation Visit Start Time 12:00 Visit Stop Time 12:45 Total Visit Minutes 45 Visit Number 1 Number of STUDIO COUCH FRAME BUILDER Visits 0 Evaluation Information Evaluation Date 12/25/21 PT-OP-B Current Condition Start: 12/25/21 13:47 Freq: Status: Active Protocol: Document 12/25/21 12:00 DCW (Rec: 12/25/21 13:58 [facility] [id number]) Current Condition History of Current Condition Onset Date 2-3 months Current Complaints Right shoulder pain with specific positioning. History of Current Condition Pt is a 46 year old male presenting with a 2-3 month history of worsening right shoulder pain. Pt reports that slightly more than one year ago, he had surgical intervention for right biceps tendonosis. Reports that overall therapy went well, he never quite got full ROM back, but was able to get back to normal activity and exercise. Pt reports that he has been doing UE strengthening, and for the last 2-3 months, has experienced increasing discomfort with his right shoulder, especially with resisted flexion and with ER in 90? abduction. Performing activities like reaching into his back seat or pulling his blankets up on himself using his right arm can be quite painful. Notes that abduction seems to be fine, other than at end-range, and elbow ROM is completely pain-free. Prior Treatments and Tests Surgical intervention for right biceps tendonosis with post-op PT Treatment Goals Patient/Caregiver Goals Return to normal exercise routine with full ROM and no increased pain PT-OP-C Subjective Start: 12/25/21 13:47 Freq: Status: Active Protocol: Document 12/25/21 12:00 DCW (Rec: 12/25/21 13:58 DCW [id number]) OP-PT Subjective Patient Comments Patient Comments I never really got full ROM after surgery, but it wasn't missing enought to really bother me. Patient Questionnaires Quick Dash- Upper Extremity Quick Dash UE Score 54.55% Quick Dash UE Impairment 40 to 59% Impaired (Score 40- 59) OP-PT Pain Assessment Pain Assessment Grid Paper Pain Assessment Grid Completed Yes Location Right Lateral Shoulder Intensity 7 Scale Used Numeric (0 - 10) Description Aching,Dull PT-OP-E Functional Tests Start: 12/25/21 13:47 Freq: Status: Active Protocol: Document 12/25/21 12:00 DCW (Rec: 12/25/21 14:11 DCW [id number]) Functional Tests Apley's Scratch Test Action 1- Left Posterior opposite shoulder Action 1- Right Posterior opposite shoulder Action 2- Left T4 Action 2- Right T2 Action 3- Left T6 Action 3- Right T11 PT-OP-F Manual Assessment Start: 12/25/21 13:47 Freq: Status: Active Protocol: Document 12/25/21 12:00 DCW (Rec: 12/25/21 14:11 DCW [id number]) Manual Assessments Joint Mobility Assessment Joint Mobility Assessment Poor scapulothoracic rhythm, scapula hit hard end feel at end range abduction, 110? flexion, and 45? ER (while in 90? abduction) PT-OP-K Range of Motion Start: 12/25/21 13:47 Freq: Status: Active Protocol: Document 12/25/21 12:00 DCW (Rec: 12/25/21 14:11 DCW [id number]) Shoulder Goniometric Range of Motion Shoulder Right Passive Testing Position Supine Flexion 115 Abduction 180 External Rotation at 90 degrees 45 Abduction External Rotation at 0 degrees Abduction 45 Right Active Testing Position Sitting Flexion 110 Abduction 170 External Rotation at 90 degrees 35 Abduction External Rotation at 0 degrees Abduction 30 Internal Rotation Behind Back (text) T11 PT-OP-L Special Tests Start: 12/25/21 13:47 Freq: Status: Active Protocol: Document 12/25/21 12:00 DCW (Rec: 12/25/21 14:11 DCW [id number]) Special Tests Shoulder Special Tests Michaelrgason's Biceps Test Results Negative Passive ER Rotator Cuff Test Results Negative Lift-Off Rotator Cuff Test Results Positive R Comments Pt reports he has been unable to perform this motion since surgery one year ago Perkins Jonny Impingement Test Results Negative Grind Labrum Test Results Negative Empty Can Test Results Negative Drop Arm Rotator Cuff Test Results Negative Clunk Test Test Results Negative Biceps Load II Test Test Results Negative Belly Press Test Results Negative Apprehension Test Test Results Negative Anterior Draw Test Results Negative AC Joint Compression Test Results Negative PT-OP-M Strength Start: 12/25/21 13:47 Freq: Status: Active Protocol: Document 12/25/21 12:00 DCW (Rec: 12/25/21 14:11 DCW [id number]) Shoulder Strength Shoulder Manual Muscle Testing Right Flexion 4+ Good+ Abduction (C5) 5 Normal External Rotation 4- Good- Internal Rotation 5 Normal Left Flexion 5 Normal Abduction (C5) 5 Normal External Rotation 5 Normal Internal Rotation 5 Normal PT-OP-T Assessment and Plan Start: 12/25/21 13:47 Freq: Status: Active Protocol: Document 12/25/21 12:00 DCW (Rec: 12/25/21 14:22 DCW [id number]) Physical Therapy Assessment Rehab Potential Rehabilitation Potential Excellent Evaluation Complexity Number of Personal Factors/Comorbidities 0 Number of Body Systems Impaired 1-2 Clinical Presentation at Evaluation Evolving Impairments Impairments Functional Activities, Functional Mobility,Pain,ROM, Soft Tissue Mobility,Strength Goals Two Impairment Pt unable to perform normal car activities using his right arm Design Lead Goal (LTG) Pt to show ability to use his right arm to reach up and grab the seatbelt while sitting in the passenger side of a vehicle by increasing ER to 90 ? while in 90? abduction LTG Duration 02/19/22 One Impairment Pt does not have an appropriate home exercise program Short Term Goal (STG) Pt to be independent and compliant with an appropriate HEP focusing on stretching and improving ROM STG Duration 01/22/22 Assessment Summary Assessment Pt presents with signs and symptoms consistent with scapulothoracic joint dysfunction. As pt moves his right arm through flexion, abduction, and ER, his scapula locks up and will not move any farther, always at the exact moment pt reports that his arm is starting to hurt. Pain is largely along what would typically be expected for supraspinatus involvement, however pt does not have any other signs of r/c injury or involvement at this time. Pt possibly never fully recovered full ROM following his surgery one year ago, and has he became more and more active with UE exercise, he began increasing compensatory movements, resulting in increasing scapulothoracic dysfunction. Following a very brief trial of joint mobilization and scapulothoracic stretching, pt noticed immediate improvement in both pain and mobility. Pt will likely benefit from skilled therapy focusing on STM, joint mobs, and strengthening. Physical Therapy Plan Frequency and Duration Frequency of Treatment 1-2x/week Duration of treatment (weeks) 8 Plan of Care Start Date 12/25/21 Plan of Care End Date 02/19/22 Therapeutic Interventions Therapeutic Interventions Home Exercise Program,Joint Mobilizations,Manual Therapy, Patient/Caregiver Education, Self-Care/Home Management,Soft Tissue Mobilization, Therapeutic Activities, Therapeutic Exercises Next Visit Focus/Plan Next Note Type Treatment Note Next Visit Plan STM, joint mobilization, strengthening
--- NOTE | 2021-12-25 14:23 | PT.OPPOC ---
Physical, Occupational & Speech Therapy At [facility] Current Diagnoses Pain in right shoulder (12/25/21) Pain in unspecified shoulder (12/25/21) Stiffness of right shoulder, not elsewhere classified (12/25/21) Visit Care Team Role Provider Type Bebeto Roberson PA-C Attending Provider Non-Staff Family Provider Primary Care Provider Referring Provider Specialty: Medical Address: [address] [place] [address], [address] Phone: Email: Plan Of Care PT-OP-T Assessment and Plan Start: 12/25/21 13:47 Freq: Status: Active Protocol: Document 12/25/21 12:00 DCW (Rec: 12/25/21 14:22 DCW [id number]) Physical Therapy Assessment Rehab Potential Rehabilitation Potential Excellent Evaluation Complexity Number of Personal Factors/Comorbidities 0 Number of Body Systems Impaired 1-2 Clinical Presentation at Evaluation Evolving Impairments Impairments Functional Activities, Functional Mobility,Pain,ROM, Soft Tissue Mobility,Strength Goals Two Impairment Pt unable to perform normal car activities using his right arm Equine Pharmacology Technician Goal (LTG) Pt to show ability to use his right arm to reach up and grab the seatbelt while sitting in the passenger side of a vehicle by increasing ER to 90 ? while in 90? abduction LTG Duration 02/19/22 One Impairment Pt does not have an appropriate home exercise program Short Term Goal (STG) Pt to be independent and compliant with an appropriate HEP focusing on stretching and improving ROM STG Duration 01/22/22 Assessment Summary Assessment Pt presents with signs and symptoms consistent with scapulothoracic joint dysfunction. As pt moves his right arm through flexion, abduction, and ER, his scapula locks up and will not move any farther, always at the exact moment pt reports that his arm is starting to hurt. Pain is largely along what would typically be expected for supraspinatus involvement, however pt does not have any other signs of r/c injury or involvement at this time. Pt possibly never fully recovered full ROM following his surgery one year ago, and has he became more and more active with UE exercise, he began increasing compensatory movements, resulting in increasing scapulothoracic dysfunction. Following a very brief trial of joint mobilization and scapulothoracic stretching, pt noticed immediate improvement in both pain and mobility. Pt will likely benefit from skilled therapy focusing on STM, joint mobs, and strengthening. Physical Therapy Plan Frequency and Duration Frequency of Treatment 1-2x/week Duration of treatment (weeks) 8 Plan of Care Start Date 12/25/21 Plan of Care End Date 02/19/22 Therapeutic Interventions Therapeutic Interventions Home Exercise Program,Joint Mobilizations,Manual Therapy, Patient/Caregiver Education, Self-Care/Home Management,Soft Tissue Mobilization, Therapeutic Activities, Therapeutic Exercises Next Visit Focus/Plan Next Note Type Treatment Note Next Visit Plan STM, joint mobilization, strengthening Plan of Care Dates Plan of Care Start Date 12/25/21 Plan of Care End Date 02/19/22 Electronically Signed by: Silver Sorenson, PT 12/25/21 5925 If you are in agreement with this Plan of Care, please return a signed and dated copy. I have reviewed this Plan of Care and certify that the skilled therapy services above are required to meet the patient?s needs. Physician Signature Date Printed Name and Credentials Clinical Instructor Signature Printed Name and Credentials
--- NOTE | 2022-01-04 12:01 | PT.OTN ---
Current Diagnoses Pain in right shoulder (01/04/22) Pain in unspecified shoulder (01/04/22) Stiffness of right shoulder, not elsewhere classified (01/04/22) Physical Therapy Treatment Note PT-OP-A Visit Information Start: 12/25/21 13:47 Freq: Status: Active Protocol: Document 01/04/22 11:15 DCW (Rec: 01/04/22 12:01 SDW [id number]) Out-Patient Physical Therapy Visit Information Visit Information Visit Type Treatment Note Visit Start Time 11:15 Visit Stop Time 12:00 Total Visit Minutes 45 Visit Number 2 Number of PERSONAL SERVICE WORKERS Visits 0 Evaluation Information Evaluation Date 12/25/21 PT-OP-B Current Condition Start: 12/25/21 13:47 Freq: Status: Active Protocol: Document 12/25/21 12:00 DCW (Rec: 12/25/21 13:58 DCW [id number]) Current Condition History of Current Condition Onset Date 2-3 months Current Complaints Right shoulder pain with specific positioning. History of Current Condition Pt is a 46 year old male presenting with a 2-3 month history of worsening right shoulder pain. Pt reports that slightly more than one year ago, he had surgical intervention for right biceps tendonosis. Reports that overall therapy went well, he never quite got full ROM back, but was able to get back to normal activity and exercise. Pt reports that he has been doing UE strengthening, and for the last 2-3 months, has experienced increasing discomfort with his right shoulder, especially with resisted flexion and with ER in 90? abduction. Performing activities like reaching into his back seat or pulling his blankets up on himself using his right arm can be quite painful. Notes that abduction seems to be fine, other than at end-range, and elbow ROM is completely pain-free. Prior Treatments and Tests Surgical intervention for right biceps tendonosis with post-op PT Treatment Goals Patient/Caregiver Goals Return to normal exercise routine with full ROM and no increased pain PT-OP-C Subjective Start: 12/25/21 13:47 Freq: Status: Active Protocol: Document 01/04/22 11:15 DCW (Rec: 01/04/22 12:01 DCW [id number]) OP-PT Subjective Patient Comments Patient Comments It's pretty much the same. I' ve been really busy, and I have a lot of other excuses too. PT-OP-E Functional Tests Start: 12/25/21 13:47 Freq: Status: Active Protocol: Document 12/25/21 12:00 DCW (Rec: 12/25/21 14:11 DCW [id number]) Functional Tests Apley's Scratch Test Action 1- Left Posterior opposite shoulder Action 1- Right Posterior opposite shoulder Action 2- Left T4 Action 2- Right T2 Action 3- Left T6 Action 3- Right T11 PT-OP-F Manual Assessment Start: 12/25/21 13:47 Freq: Status: Active Protocol: Document 12/25/21 12:00 DCW (Rec: 12/25/21 14:11 DCW [id number]) Manual Assessments Joint Mobility Assessment Joint Mobility Assessment Poor scapulothoracic rhythm, scapula hit hard end feel at end range abduction, 110? flexion, and 45? ER (while in 90? abduction) PT-OP-K Range of Motion Start: 12/25/21 13:47 Freq: Status: Active Protocol: Document 12/25/21 12:00 DCW (Rec: 12/25/21 14:11 DCW [id number]) Shoulder Goniometric Range of Motion Shoulder Right Passive Testing Position Supine Flexion 115 Abduction 180 External Rotation at 90 degrees 45 Abduction External Rotation at 0 degrees Abduction 45 Right Active Testing Position Sitting Flexion 110 Abduction 170 External Rotation at 90 degrees 35 Abduction External Rotation at 0 degrees Abduction 30 Internal Rotation Behind Back (text) T11 PT-OP-L Special Tests Start: 12/25/21 13:47 Freq: Status: Active Protocol: Document 12/25/21 12:00 DCW (Rec: 12/25/21 14:11 DCW [id number]) Special Tests Shoulder Special Tests Yergason's Biceps Test Results Negative Passive ER Rotator Cuff Test Results Negative Lift-Off Rotator Cuff Test Results Positive R Comments Pt reports he has been unable to perform this motion since surgery one year ago [employer] Jonny Impingement Test Results Negative Grind Labrum Test Results Negative Empty Can Test Results Negative Drop Arm Rotator Cuff Test Results Negative Clunk Test Test Results Negative Biceps Load II Test Test Results Negative Belly Press Test Results Negative Apprehension Test Test Results Negative Anterior Draw Test Results Negative AC Joint Compression Test Results Negative PT-OP-M Strength Start: 12/25/21 13:47 Freq: Status: Active Protocol: Document 12/25/21 12:00 DCW (Rec: 12/25/21 14:11 [facility] [id number]) Shoulder Strength Shoulder Manual Muscle Testing Right Flexion 4+ Good+ Abduction (C5) 5 Normal External Rotation 4- Good- Internal Rotation 5 Normal Left Flexion 5 Normal Abduction (C5) 5 Normal External Rotation 5 Normal Internal Rotation 5 Normal PT-OP-Q Treatments Start: 12/25/21 13:47 Freq: Status: Active Protocol: Document 01/04/22 11:15 DCW (Rec: 01/04/22 12:01 [facility] [id number]) Therapeutic Exercises Supine Exercises Serratus Punch Supine Exercise Name Serratus Punch Side bilateral Resistance 10# PVC Standing Exercises Wall Push-ups Standing Exercise Name Wall push-ups Comments <> and W hand positions Other Exercises Wall clock Other Exercise Name Wall clock Resistance Blue Resisted Ambulation Other Exercise Name Resisted UE Side-stepping Resistance Blue Manual Therapy Treatment Joint Mobilizations A/C Joint R A/C Direction Inferior Grade III Body Position Supine GH Joint R GH Direction Inferior Grade III Body Position Supine Scapulothoracic Joint R ST Direction Lateral Grade III Body Position Supine PT-OP-T Assessment and Plan Start: 12/25/21 13:47 Freq: Status: Active Protocol: Document 01/04/22 11:15 DCW (Rec: 01/04/22 12:01 [facility] [id number]) Physical Therapy Assessment Impairments Impairments Functional Activities, Functional Mobility,Pain,ROM, Soft Tissue Mobility,Strength Goals Two Impairment Pt unable to perform normal car activities using his right arm Alf Goal (LTG) Pt to show ability to use his right arm to reach up and grab the seatbelt while sitting in the passenger side of a vehicle by increasing ER to 90 ? while in 90? abduction LTG Duration 02/19/22 One Impairment Pt does not have an appropriate home exercise program Short Term Goal (STG) Pt to be independent and compliant with an appropriate HEP focusing on stretching and improving ROM STG Duration 01/22/22 Assessment Summary Assessment Tolerated new activities well, had some increased pain with UE resisted walking along rail . Increased scapulothoracic mobility following joint mobilizations Physical Therapy Plan Frequency and Duration Frequency of Treatment 1-2x/week Duration of treatment (weeks) 8 Plan of Care Start Date 12/25/21 Plan of Care End Date 02/19/22 Therapeutic Interventions Therapeutic Interventions Home Exercise Program,Joint Mobilizations,Manual Therapy, Patient/Caregiver Education, Self-Care/Home Management,Soft Tissue Mobilization, Therapeutic Activities, Therapeutic Exercises Next Visit Focus/Plan Next Note Type Treatment Note Next Visit Plan STM, joint mobilization, strengthening
--- NOTE | 2022-01-08 09:39 | PT.OTN ---
Current Diagnoses Pain in right shoulder (01/08/22) Pain in unspecified shoulder (01/08/22) Stiffness of right shoulder, not elsewhere classified (01/08/22) Physical Therapy Treatment Note PT-OP-A Visit Information Start: 12/25/21 13:47 Freq: Status: Active Protocol: Document 01/08/22 08:41 NBM (Rec: 01/08/22 09:38 NBM [id number]) Out-Patient Physical Therapy Visit Information Visit Information Visit Type Treatment Note Visit Start Time 08:15 Visit Stop Time 09:00 Total Visit Minutes 45 Visit Number 3 Number of INSTRUCTOR TRAINER CANINE SERVICE Visits 1 Evaluation Information Evaluation Date 12/25/21 PT-OP-B Current Condition Start: 12/25/21 13:47 Freq: Status: Active Protocol: Document 12/25/21 12:00 DCW (Rec: 12/25/21 13:58 DCW [id number]) Current Condition History of Current Condition Onset Date 2-3 months Current Complaints Right shoulder pain with specific positioning. History of Current Condition Pt is a 46 year old male presenting with a 2-3 month history of worsening right shoulder pain. Pt reports that slightly more than one year ago, he had surgical intervention for right biceps tendonosis. Reports that overall therapy went well, he never quite got full ROM back, but was able to get back to normal activity and exercise. Pt reports that he has been doing UE strengthening, and for the last 2-3 months, has experienced increasing discomfort with his right shoulder, especially with resisted flexion and with ER in 90? abduction. Performing activities like reaching into his back seat or pulling his blankets up on himself using his right arm can be quite painful. Notes that abduction seems to be fine, other than at end-range, and elbow ROM is completely pain-free. Prior Treatments and Tests Surgical intervention for right biceps tendonosis with post-op PT Treatment Goals Patient/Caregiver Goals Return to normal exercise routine with full ROM and no increased pain PT-OP-C Subjective Start: 12/25/21 13:47 Freq: Status: Active Protocol: Document 01/08/22 08:41 NBM (Rec: 01/08/22 09:38 NBM [id number]) OP-PT Subjective Patient Comments Patient Comments Pt states he has been able to do his exercises a few times and reports no changes to symptoms. He wants to have exercises to do at home. PT-OP-E Functional Tests Start: 12/25/21 13:47 Freq: Status: Active Protocol: Document 12/25/21 12:00 DCW (Rec: 12/25/21 14:11 DCW [id number]) Functional Tests Apley's Scratch Test Action 1- Left Posterior opposite shoulder Action 1- Right Posterior opposite shoulder Action 2- Left T4 Action 2- Right T2 Action 3- Left T6 Action 3- Right T11 PT-OP-F Manual Assessment Start: 12/25/21 13:47 Freq: Status: Active Protocol: Document 12/25/21 12:00 DCW (Rec: 12/25/21 14:11 DCW [id number]) Manual Assessments Joint Mobility Assessment Joint Mobility Assessment Poor scapulothoracic rhythm, scapula hit hard end feel at end range abduction, 110? flexion, and 45? ER (while in 90? abduction) PT-OP-K Range of Motion Start: 12/25/21 13:47 Freq: Status: Active Protocol: Document 12/25/21 12:00 DCW (Rec: 12/25/21 14:11 DCW [id number]) Shoulder Goniometric Range of Motion Shoulder Right Passive Testing Position Supine Flexion 115 Abduction 180 External Rotation at 90 degrees 45 Abduction External Rotation at 0 degrees Abduction 45 Right Active Testing Position Sitting Flexion 110 Abduction 170 External Rotation at 90 degrees 35 Abduction External Rotation at 0 degrees Abduction 30 Internal Rotation Behind Back (text) T11 PT-OP-L Special Tests Start: 12/25/21 13:47 Freq: Status: Active Protocol: Document 12/25/21 12:00 DCW (Rec: 12/25/21 14:11 DCW [id number]) Special Tests Shoulder Special Tests Yergason's Biceps Test Results Negative Passive ER Rotator Cuff Test Results Negative Lift-Off Rotator Cuff Test Results Positive R Comments Pt reports he has been unable to perform this motion since surgery one year ago [employer] Jonny Impingement Test Results Negative Grind Labrum Test Results Negative Empty Can Test Results Negative Drop Arm Rotator Cuff Test Results Negative Clunk Test Test Results Negative Biceps Load II Test Test Results Negative Belly Press Test Results Negative Apprehension Test Test Results Negative Anterior Draw Test Results Negative AC Joint Compression Test Results Negative PT-OP-M Strength Start: 12/25/21 13:47 Freq: Status: Active Protocol: Document 12/25/21 12:00 DCW (Rec: 12/25/21 14:11 DCW [id number]) Shoulder Strength Shoulder Manual Muscle Testing Right Flexion 4+ Good+ Abduction (C5) 5 Normal External Rotation 4- Good- Internal Rotation 5 Normal Left Flexion 5 Normal Abduction (C5) 5 Normal External Rotation 5 Normal Internal Rotation 5 Normal PT-OP-Q Treatments Start: 12/25/21 13:47 Freq: Status: Active Protocol: Document 01/08/22 08:41 NB (Rec: 01/08/22 09:38 NBM [id number]) Therapeutic Exercises Supine Exercises ER Supine Exercise Name AAROM Side right Equipment Used wand Reps/Minutes 8 x 20 SH Comments improved pain-free ROM Scap retraction Supine Exercise Name elbows bent to 90 deg - HEP Side bilateral Reps/Minutes 10 x 5SH Comments vc to reset scap/UT overactivation, breathe Lower Trap activation Supine Exercise Name hooklying, slide palms down to sides bringing shoulders down , press gently Side bilateral Reps/Minutes 10 x 5SH Comments vc to reset scap initially - HEP Serratus Punch Supine Exercise Name Serratus Punch - HEP Side bilateral Reps/Minutes 10 x 3 SH Comments vc to reset scap Sitting Exercises Pulleys Sitting Exercise Name R Flex/Scap/Abd Side right Resistance AAROM Equipment Used mirror Reps/Minutes 10 x 5SH Comments max cues UT overactivation, pain-free,scap setting - improves w/ repetition Standing Exercises Resisted ER Standing Exercise Name Wall ER band slides - added to HEP Resistance blue Reps/Minutes 10 x 3SH (2 breaths) Comments max cues initially for scap setting, UT overactivation - improves Wall Push-ups Standing Exercise Name Wall push-ups - Added to HEP Comments <> and W hand positions, tactile cues for scap set first Other Exercises Resisted Ambulation Other Exercise Name Resisted UE Side-stepping - HEP Side bilateral Resistance Blue Equipment Used rail Reps/Minutes x15ft ea Comments max cues for scap reset, slow eccentric - improves Self-Care/Home Management Treatment Education Patient Education Home Exercise Program,Pain Management,Posture Other Education Educated how UT overactivation can limit shoulder mobility. Added to HEP: Wall push-up (<> , W), Wall ER band slide, Resisted handwalks; supine: Lower Trap Activation, Scap retraction, Scap protraction/ Serratus punch, Wand ER - HO given. PT-OP-T Assessment and Plan Start: 12/25/21 13:47 Freq: Status: Active Protocol: Document 01/08/22 08:41 [facility] (Rec: 01/08/22 09:38 [facility] [id number]) Physical Therapy Assessment Goals Two Impairment Pt unable to perform normal car activities using his right arm Oil Paint Shader Goal (LTG) Pt to show ability to use his right arm to reach up and grab the seatbelt while sitting in the passenger side of a vehicle by increasing ER to 90 ? while in 90? abduction LTG Duration 02/19/22 One Impairment Pt does not have an appropriate home exercise program Short Term Goal (STG) Pt to be independent and compliant with an appropriate HEP focusing on stretching and improving ROM STG Duration 01/22/22 Assessment Summary Assessment Treatment focus today on HEP to improve scapulothoracic function, mobility and strengthening. Pt initially requires max cues and mirror for UT overactivation and scap setting with a mirror, but self-awareness improves w/ repetition and pt demonstrates good carryover throughout session. Pt tends to count holds quickly and benefits from using breath cycles instead. Pt notices decreased pain and improved R shoulder flexion range of motion w/ improved scapular setting prior to initiating movement as with resisted ER wall slide . Pt needs occasional cues for breathing. Added to HEP: Wall push-up (<>, W), Wall ER band slide, Resisted handwalks; supine: Lower Trap Activation, Scap retraction, Scap protraction/Serratus punch, Wand ER - HO given. Physical Therapy Plan Frequency and Duration Frequency of Treatment 1-2x/week Duration of treatment (weeks) 8 Plan of Care Start Date 12/25/21 Plan of Care End Date 02/19/22 Therapeutic Interventions Therapeutic Interventions Home Exercise Program,Joint Mobilizations,Manual Therapy, Patient/Caregiver Education, Self-Care/Home Management,Soft Tissue Mobilization, Therapeutic Activities, Therapeutic Exercises Next Visit Focus/Plan Next Note Type Treatment Note Next Visit Plan Review HEP. Consider adding wall clocks, pulleys to HEP. STM, joint mobilization, strengthening
--- NOTE | 2022-01-24 11:15 | PT.OTN ---
Current Diagnoses Pain in right shoulder (01/24/22) Pain in unspecified shoulder (01/24/22) Stiffness of right shoulder, not elsewhere classified (01/24/22) Physical Therapy Treatment Note PT-OP-A Visit Information Start: 12/25/21 13:47 Freq: Status: Active Protocol: Document 01/24/22 10:34 SP (Rec: 01/24/22 11:23 SP [id number]) Out-Patient Physical Therapy Visit Information Visit Information Visit Type Treatment Note Visit Note HONG Garcia provided instruction ther ex with pt under direct supervision and guidence feedback from WRAPPER REWINDER Keily throughout tx. Visit Start Time 10:37 Visit Stop Time 11:15 Total Visit Minutes 38 Visit Number 4 Number of WRAPPER REWINDER Visits 2 Evaluation Information Evaluation Date 12/25/21 PT-OP-B Current Condition Start: 12/25/21 13:47 Freq: Status: Active Protocol: Document 12/25/21 12:00 DCW (Rec: 12/25/21 13:58 DCW [id number]) Current Condition History of Current Condition Onset Date 2-3 months Current Complaints Right shoulder pain with specific positioning. History of Current Condition Pt is a 46 year old male presenting with a 2-3 month history of worsening right shoulder pain. Pt reports that slightly more than one year ago, he had surgical intervention for right biceps tendonosis. Reports that overall therapy went well, he never quite got full ROM back, but was able to get back to normal activity and exercise. Pt reports that he has been doing UE strengthening, and for the last 2-3 months, has experienced increasing discomfort with his right shoulder, especially with resisted flexion and with ER in 90? abduction. Performing activities like reaching into his back seat or pulling his blankets up on himself using his right arm can be quite painful. Notes that abduction seems to be fine, other than at end-range, and elbow ROM is completely pain-free. Prior Treatments and Tests Surgical intervention for right biceps tendonosis with post-op PT Treatment Goals Patient/Caregiver Goals Return to normal exercise routine with full ROM and no increased pain PT-OP-C Subjective Start: 12/25/21 13:47 Freq: Status: Active Protocol: Document 01/24/22 10:34 SP (Rec: 01/24/22 11:23 SP [id number]) OP-PT Subjective Patient Comments Patient Comments PT reports he is feeling good to day but is still having limited ROM in R shoulder driving IR with FF, abd w/ ER, lifting thing out to side and some pain down his arm. PT-OP-E Functional Tests Start: 12/25/21 13:47 Freq: Status: Active Protocol: Document 12/25/21 12:00 DCW (Rec: 12/25/21 14:11 DCW [id number]) Functional Tests Apley's Scratch Test Action 1- Left Posterior opposite shoulder Action 1- Right Posterior opposite shoulder Action 2- Left T4 Action 2- Right T2 Action 3- Left T6 Action 3- Right T11 PT-OP-F Manual Assessment Start: 12/25/21 13:47 Freq: Status: Active Protocol: Document 12/25/21 12:00 DCW (Rec: 12/25/21 14:11 DCW [id number]) Manual Assessments Joint Mobility Assessment Joint Mobility Assessment Poor scapulothoracic rhythm, scapula hit hard end feel at end range abduction, 110? flexion, and 45? ER (while in 90? abduction) PT-OP-K Range of Motion Start: 12/25/21 13:47 Freq: Status: Active Protocol: Document 01/24/22 10:34 SP (Rec: 01/24/22 11:23 SP [id number]) Shoulder Goniometric Range of Motion Shoulder Right Active Shoulder ROM WFL No Testing Position Sitting Flexion 144 Abduction 147 External Rotation at 90 degrees 35 Abduction External Rotation at 0 degrees Abduction 55 Internal Rotation Behind Back (text) T12 Comments Improved AROM: ff 34 deg ABD decrease 23 deg ER improved 20 deg Post ther ex: FF 145 ABD 155 ER arm at side: 61T 10 IR behind back PT-OP-L Special Tests Start: 12/25/21 13:47 Freq: Status: Active Protocol: Document 12/25/21 12:00 DCW (Rec: 12/25/21 14:11 DCW [id number]) Special Tests Shoulder Special Tests Yergason's Biceps Test Results Negative Passive ER Rotator Cuff Test Results Negative Lift-Off Rotator Cuff Test Results Positive R Comments Pt reports he has been unable to perform this motion since surgery one year ago [employer] Jonny Impingement Test Results Negative Grind Labrum Test Results Negative Empty Can Test Results Negative Drop Arm Rotator Cuff Test Results Negative Clunk Test Test Results Negative Biceps Load II Test Test Results Negative Belly Press Test Results Negative Apprehension Test Test Results Negative Anterior Draw Test Results Negative AC Joint Compression Test Results Negative PT-OP-M Strength Start: 12/25/21 13:47 Freq: Status: Active Protocol: Document 12/25/21 12:00 DCW (Rec: 12/25/21 14:11 DCW [id number]) Shoulder Strength Shoulder Manual Muscle Testing Right Flexion 4+ Good+ Abduction (C5) 5 Normal External Rotation 4- Good- Internal Rotation 5 Normal Left Flexion 5 Normal Abduction (C5) 5 Normal External Rotation 5 Normal Internal Rotation 5 Normal PT-OP-Q Treatments Start: 12/25/21 13:47 Freq: Status: Active Protocol: Document 01/24/22 10:34 SP (Rec: 01/24/22 11:23 SP [id number]) Therapeutic Exercises Supine Exercises Thoracic extension Supine Exercise Name added to HEP for mobility Equipment Used Foam roller Reps/Minutes 2 min Comments good form post demo T's W's Y's Supine Exercise Name Add to HEP Resistance LVL 3 Equipment Used Foam Roller Reps/Minutes 6 mins Comments PT feeling in arms, cued for scapular activation. pec stretch Supine Exercise Name added to HEP: various ranges Side bilateral Equipment Used over foam roller Reps/Minutes 3 min total Comments good feedback scap retraction set positioning Lower Trap activation Supine Exercise Name hooklying, slide palms down to sides bringing shoulders down , press gently Side bilateral Reps/Minutes 10 x 5SH Comments vc to reset scap initially - HEP Serratus Punch Supine Exercise Name Serratus Punch - HEP Side bilateral Resistance 3#DB Equipment Used over foam roller Reps/Minutes 10 x 3 SH Comments vc to reset scap Standing Exercises Resisted ER Standing Exercise Name Wall ER band slides - added to HEP Resistance Tb #3 Reps/Minutes 10 x 3SH (2 breaths) Comments max cues initially for scap setting, UT overactivation - improves Other Exercises Resisted Ambulation Other Exercise Name Resisted wall walking elbows bent - HEP Side bilateral Resistance TB #3 Equipment Used wall 10 ft x3 laps Comments improved GH dissociation Habd con/ecc post decrease resistance Manual Therapy Treatment Soft Tissue Mobilization R shld Body Location subscap, distal lat, distal pec major Mobilization Type Cross-Friction,Rolling, Sustained Pressure,Other Intensity/Depth Moderate Body Position Hooklying Comments manual and instruction on self pin and FM: abd/er PT-OP-T Assessment and Plan Start: 12/25/21 13:47 Freq: Status: Active Protocol: Document 01/24/22 10:34 SP (Rec: 01/24/22 11:23 SP [id number]) Physical Therapy Assessment Goals Two Impairment Pt unable to perform normal car activities using his right arm Lacquer Sizer Goal (LTG) Pt to show ability to use his right arm to reach up and grab the seatbelt while sitting in the passenger side of a vehicle by increasing ER to 90 ? while in 90? abduction LTG Duration 02/19/22 One Impairment Pt does not have an appropriate home exercise program Short Term Goal (STG) Pt to be independent and compliant with an appropriate HEP focusing on stretching and improving ROM STG Duration 01/22/22 Progress Towards Goals Progress Comments Improved AROM R shld AROM seated: ff 34 deg ABD decrease 23 deg ER improved 20 deg Assessment Summary Assessment Pt improved his ROM with added AROM and resisted shld ER and abd over foam roller, noted decrease tightness in pec post manual and allowance scapular /humeral dissociation mobiltiy . Physical Therapy Plan Frequency and Duration Frequency of Treatment 1-2x/week Duration of treatment (weeks) 8 Plan of Care Start Date 12/25/21 Plan of Care End Date 02/19/22 Therapeutic Interventions Therapeutic Interventions Home Exercise Program,Joint Mobilizations,Manual Therapy, Patient/Caregiver Education, Self-Care/Home Management,Soft Tissue Mobilization, Therapeutic Activities, Therapeutic Exercises Next Visit Focus/Plan Next Note Type Treatment Note Next Visit Plan Next tx add eccentric abd w/ ER use TB. STM, joint mobilization, strengthening
--- NOTE | 2022-01-28 15:58 | PT.OTN ---
Current Diagnoses Pain in right shoulder (01/28/22) Pain in unspecified shoulder (01/28/22) Stiffness of right shoulder, not elsewhere classified (01/28/22) Physical Therapy Treatment Note PT-OP-A Visit Information Start: 12/25/21 13:47 Freq: Status: Active Protocol: Document 01/28/22 15:15 DCW (Rec: 01/28/22 15:58 DCW [id number]) Out-Patient Physical Therapy Visit Information Visit Information Visit Type Treatment Note Visit Start Time 15:15 Visit Stop Time 16:00 Total Visit Minutes 45 Visit Number 5 Number of FIRE CONTROL TECHNICIAN G Visits 0 Evaluation Information Evaluation Date 12/25/21 PT-OP-B Current Condition Start: 12/25/21 13:47 Freq: Status: Active Protocol: Document 12/25/21 12:00 DCW (Rec: 12/25/21 13:58 DCW [id number]) Current Condition History of Current Condition Onset Date 2-3 months Current Complaints Right shoulder pain with specific positioning. History of Current Condition Pt is a 46 year old male presenting with a 2-3 month history of worsening right shoulder pain. Pt reports that slightly more than one year ago, he had surgical intervention for right biceps tendonosis. Reports that overall therapy went well, he never quite got full ROM back, but was able to get back to normal activity and exercise. Pt reports that he has been doing UE strengthening, and for the last 2-3 months, has experienced increasing discomfort with his right shoulder, especially with resisted flexion and with ER in 90? abduction. Performing activities like reaching into his back seat or pulling his blankets up on himself using his right arm can be quite painful. Notes that abduction seems to be fine, other than at end-range, and elbow ROM is completely pain-free. Prior Treatments and Tests Surgical intervention for right biceps tendonosis with post-op PT Treatment Goals Patient/Caregiver Goals Return to normal exercise routine with full ROM and no increased pain PT-OP-C Subjective Start: 12/25/21 13:47 Freq: Status: Active Protocol: Document 01/28/22 15:15 DCW (Rec: 01/28/22 15:58 DCW [id number]) OP-PT Subjective Patient Comments Patient Comments Not all better, but a little better for sure. PT-OP-E Functional Tests Start: 12/25/21 13:47 Freq: Status: Active Protocol: Document 12/25/21 12:00 DCW (Rec: 12/25/21 14:11 DCW [id number]) Functional Tests Apley's Scratch Test Action 1- Left Posterior opposite shoulder Action 1- Right Posterior opposite shoulder Action 2- Left T4 Action 2- Right T2 Action 3- Left T6 Action 3- Right T11 PT-OP-F Manual Assessment Start: 12/25/21 13:47 Freq: Status: Active Protocol: Document 12/25/21 12:00 DCW (Rec: 12/25/21 14:11 DCW [id number]) Manual Assessments Joint Mobility Assessment Joint Mobility Assessment Poor scapulothoracic rhythm, scapula hit hard end feel at end range abduction, 110? flexion, and 45? ER (while in 90? abduction) PT-OP-K Range of Motion Start: 12/25/21 13:47 Freq: Status: Active Protocol: Document 01/24/22 10:34 SP (Rec: 01/24/22 11:23 SP [id number]) Shoulder Goniometric Range of Motion Shoulder Right Active Shoulder ROM WFL No Testing Position Sitting Flexion 144 Abduction 147 External Rotation at 90 degrees 35 Abduction External Rotation at 0 degrees Abduction 55 Internal Rotation Behind Back (text) T12 Comments Improved AROM: ff 34 deg ABD decrease 23 deg ER improved 20 deg Post ther ex: FF 145 ABD 155 ER arm at side: 61T 10 IR behind back PT-OP-L Special Tests Start: 12/25/21 13:47 Freq: Status: Active Protocol: Document 12/25/21 12:00 DCW (Rec: 12/25/21 14:11 DCW [id number]) Special Tests Shoulder Special Tests Yergason's Biceps Test Results Negative Passive ER Rotator Cuff Test Results Negative Lift-Off Rotator Cuff Test Results Positive R Comments Pt reports he has been unable to perform this motion since surgery one year ago [employer] Jonny Impingement Test Results Negative Grind Labrum Test Results Negative Empty Can Test Results Negative Drop Arm Rotator Cuff Test Results Negative Clunk Test Test Results Negative Biceps Load II Test Test Results Negative Belly Press Test Results Negative Apprehension Test Test Results Negative Anterior Draw Test Results Negative AC Joint Compression Test Results Negative PT-OP-M Strength Start: 12/25/21 13:47 Freq: Status: Active Protocol: Document 12/25/21 12:00 DCW (Rec: 12/25/21 14:11 DCW [id number]) Shoulder Strength Shoulder Manual Muscle Testing Right Flexion 4+ Good+ Abduction (C5) 5 Normal External Rotation 4- Good- Internal Rotation 5 Normal Left Flexion 5 Normal Abduction (C5) 5 Normal External Rotation 5 Normal Internal Rotation 5 Normal PT-OP-Q Treatments Start: 12/25/21 13:47 Freq: Status: Active Protocol: Document 01/28/22 15:15 DCW (Rec: 01/28/22 15:58 DCW [id number]) Gym Equipment Therapeutic Ball Ashvin's Exercise Details I's,Y's, & T's Ball Size/Color Green - 65 cm 4# Body Position Prone Reps/Duration 3x10 Therapeutic Exercises Supine Exercises Thoracic extension Supine Exercise Name Thoracic extension Equipment Used Foam roller pec stretch Supine Exercise Name Pec stretch, snow felix Side bilateral Equipment Used over foam roller Comments good feedback scap retraction set positioning Lower Trap activation Supine Exercise Name hooklying, slide palms down to sides bringing shoulders down , press gently Side bilateral Reps/Minutes 10 x 5SH Manual Therapy Treatment Soft Tissue Mobilization R shld Body Location subscap, distal lat, distal pec major Mobilization Type Cross-Friction,Rolling, Sustained Pressure,Other Intensity/Depth Moderate Body Position Hooklying Joint Mobilizations A/C Joint R A/C Direction Inferior Grade III Body Position Supine GH Joint R GH Direction Inferior Grade III Body Position Supine Scapulothoracic Joint R ST Direction Lateral Grade III Body Position Supine PT-OP-T Assessment and Plan Start: 12/25/21 13:47 Freq: Status: Active Protocol: Document 01/28/22 15:15 DCW (Rec: 01/28/22 15:58 DCW [id number]) Physical Therapy Assessment Goals Two Impairment Pt unable to perform normal car activities using his right arm Fpc Goal (LTG) Pt to show ability to use his right arm to reach up and grab the seatbelt while sitting in the passenger side of a vehicle by increasing ER to 90 ? while in 90? abduction LTG Duration 02/19/22 One Impairment Pt does not have an appropriate home exercise program Short Term Goal (STG) Pt to be independent and compliant with an appropriate HEP focusing on stretching and improving ROM STG Duration 01/22/22 Assessment Summary Assessment Pt showing good improvement with ROM, improved scapulothoracic rhythm, still limited at end range with tightness, some mild soreness. Physical Therapy Plan Frequency and Duration Frequency of Treatment 1-2x/week Duration of treatment (weeks) 8 Plan of Care Start Date 12/25/21 Plan of Care End Date 02/19/22 Therapeutic Interventions Therapeutic Interventions Home Exercise Program,Joint Mobilizations,Manual Therapy, Patient/Caregiver Education, Self-Care/Home Management,Soft Tissue Mobilization, Therapeutic Activities, Therapeutic Exercises Next Visit Focus/Plan Next Note Type Treatment Note Next Visit Plan Next tx add eccentric abd w/ ER use TB. STM, joint mobilization, strengthening
--- NOTE | 2022-01-30 14:28 | PT.OTN ---
Current Diagnoses Pain in right shoulder (01/30/22) Pain in unspecified shoulder (01/30/22) Stiffness of right shoulder, not elsewhere classified (01/30/22) Physical Therapy Treatment Note PT-OP-A Visit Information Start: 12/25/21 13:47 Freq: Status: Active Protocol: Document 01/30/22 13:45 DCW (Rec: 01/30/22 14:27 DCW [id number]) Out-Patient Physical Therapy Visit Information Visit Information Visit Type Treatment Note Visit Start Time 13:45 Visit Stop Time 14:30 Total Visit Minutes 45 Visit Number 6 Number of TIE UP WORKER Visits 0 Evaluation Information Evaluation Date 12/25/21 PT-OP-B Current Condition Start: 12/25/21 13:47 Freq: Status: Active Protocol: Document 12/25/21 12:00 DCW (Rec: 12/25/21 13:58 DCW [id number]) Current Condition History of Current Condition Onset Date 2-3 months Current Complaints Right shoulder pain with specific positioning. History of Current Condition Pt is a 46 year old male presenting with a 2-3 month history of worsening right shoulder pain. Pt reports that slightly more than one year ago, he had surgical intervention for right biceps tendonosis. Reports that overall therapy went well, he never quite got full ROM back, but was able to get back to normal activity and exercise. Pt reports that he has been doing UE strengthening, and for the last 2-3 months, has experienced increasing discomfort with his right shoulder, especially with resisted flexion and with ER in 90? abduction. Performing activities like reaching into his back seat or pulling his blankets up on himself using his right arm can be quite painful. Notes that abduction seems to be fine, other than at end-range, and elbow ROM is completely pain-free. Prior Treatments and Tests Surgical intervention for right biceps tendonosis with post-op PT Treatment Goals Patient/Caregiver Goals Return to normal exercise routine with full ROM and no increased pain PT-OP-C Subjective Start: 12/25/21 13:47 Freq: Status: Active Protocol: Document 01/30/22 13:45 DCW (Rec: 01/30/22 14:27 DCW [id number]) OP-PT Subjective Patient Comments Patient Comments Feeling pretty good today. PT-OP-E Functional Tests Start: 12/25/21 13:47 Freq: Status: Active Protocol: Document 12/25/21 12:00 DCW (Rec: 12/25/21 14:11 DCW [id number]) Functional Tests Apley's Scratch Test Action 1- Left Posterior opposite shoulder Action 1- Right Posterior opposite shoulder Action 2- Left T4 Action 2- Right T2 Action 3- Left T6 Action 3- Right T11 PT-OP-F Manual Assessment Start: 12/25/21 13:47 Freq: Status: Active Protocol: Document 12/25/21 12:00 DCW (Rec: 12/25/21 14:11 DCW [id number]) Manual Assessments Joint Mobility Assessment Joint Mobility Assessment Poor scapulothoracic rhythm, scapula hit hard end feel at end range abduction, 110? flexion, and 45? ER (while in 90? abduction) PT-OP-K Range of Motion Start: 12/25/21 13:47 Freq: Status: Active Protocol: Document 01/24/22 10:34 SP (Rec: 01/24/22 11:23 SP [id number]) Shoulder Goniometric Range of Motion Shoulder Right Active Shoulder ROM WFL No Testing Position Sitting Flexion 144 Abduction 147 External Rotation at 90 degrees 35 Abduction External Rotation at 0 degrees Abduction 55 Internal Rotation Behind Back (text) T12 Comments Improved AROM: ff 34 deg ABD decrease 23 deg ER improved 20 deg Post ther ex: FF 145 ABD 155 ER arm at side: 61T 10 IR behind back PT-OP-L Special Tests Start: 12/25/21 13:47 Freq: Status: Active Protocol: Document 12/25/21 12:00 DCW (Rec: 12/25/21 14:11 DCW [id number]) Special Tests Shoulder Special Tests Yergason's Biceps Test Results Negative Passive ER Rotator Cuff Test Results Negative Lift-Off Rotator Cuff Test Results Positive R Comments Pt reports he has been unable to perform this motion since surgery one year ago [employer] Jonny Impingement Test Results Negative Grind Labrum Test Results Negative Empty Can Test Results Negative Drop Arm Rotator Cuff Test Results Negative Clunk Test Test Results Negative Biceps Load II Test Test Results Negative Belly Press Test Results Negative Apprehension Test Test Results Negative Anterior Draw Test Results Negative AC Joint Compression Test Results Negative PT-OP-M Strength Start: 12/25/21 13:47 Freq: Status: Active Protocol: Document 12/25/21 12:00 DCW (Rec: 12/25/21 14:11 DCW [id number]) Shoulder Strength Shoulder Manual Muscle Testing Right Flexion 4+ Good+ Abduction (C5) 5 Normal External Rotation 4- Good- Internal Rotation 5 Normal Left Flexion 5 Normal Abduction (C5) 5 Normal External Rotation 5 Normal Internal Rotation 5 Normal PT-OP-Q Treatments Start: 12/25/21 13:47 Freq: Status: Active Protocol: Document 01/30/22 13:45 DCW (Rec: 01/30/22 14:27 DCW [id number]) Gym Equipment Therapeutic Ball Prone Walk-out Exercise Details Prone Walk-out Ball Size/Color Green - 65 cm Body Position Prone Hughston's Exercise Details I's,Y's, & T's Ball Size/Color Green - 65 cm 4# Body Position Prone Reps/Duration 3x10 Manual Therapy Treatment Soft Tissue Mobilization R shld Body Location subscap, distal lat, distal pec major Mobilization Type Cross-Friction,Rolling, Sustained Pressure,Other Intensity/Depth Moderate Body Position Hooklying Joint Mobilizations A/C Joint R A/C Direction Inferior Grade III Body Position Supine GH Joint R GH Direction Inferior Grade III Body Position Supine Scapulothoracic Joint R ST Direction Lateral Grade III Body Position Supine PT-OP-T Assessment and Plan Start: 12/25/21 13:47 Freq: Status: Active Protocol: Document 01/30/22 13:45 DCW (Rec: 01/30/22 14:27 DCW [id number]) Physical Therapy Assessment Goals Two Impairment Pt unable to perform normal car activities using his right arm Millinery Salesperson Goal (LTG) Pt to show ability to use his right arm to reach up and grab the seatbelt while sitting in the passenger side of a vehicle by increasing ER to 90 ? while in 90? abduction LTG Duration 02/19/22 One Impairment Pt does not have an appropriate home exercise program Short Term Goal (STG) Pt to be independent and compliant with an appropriate HEP focusing on stretching and improving ROM STG Duration 01/22/22 Assessment Summary Assessment Significant improvement in pain-free ROM, other than end- range flexion and abduction. Physical Therapy Plan Frequency and Duration Frequency of Treatment 1-2x/week Duration of treatment (weeks) 8 Plan of Care Start Date 12/25/21 Plan of Care End Date 02/19/22 Therapeutic Interventions Therapeutic Interventions Home Exercise Program,Joint Mobilizations,Manual Therapy, Patient/Caregiver Education, Self-Care/Home Management,Soft Tissue Mobilization, Therapeutic Activities, Therapeutic Exercises Next Visit Focus/Plan Next Note Type Treatment Note Next Visit Plan Next tx add eccentric abd w/ ER use TB. STM, joint mobilization, strengthening
--- NOTE | 2022-02-04 11:57 | PT.OTN ---
Current Diagnoses Pain in right shoulder (02/04/22) Pain in unspecified shoulder (02/04/22) Stiffness of right shoulder, not elsewhere classified (02/04/22) Physical Therapy Treatment Note PT-OP-A Visit Information Start: 12/25/21 13:47 Freq: Status: Active Protocol: Document 02/04/22 11:15 DCW (Rec: 02/04/22 11:57 DCW [id number]) Out-Patient Physical Therapy Visit Information Visit Information Visit Type Treatment Note Visit Start Time 11:15 Visit Stop Time 12:00 Total Visit Minutes 45 Visit Number 7 Number of [employer]LINE [employer]ACH Visits 0 Evaluation Information Evaluation Date 12/25/21 PT-OP-B Current Condition Start: 12/25/21 13:47 Freq: Status: Active Protocol: Document 12/25/21 12:00 DCW (Rec: 12/25/21 13:58 DCW [id number]) Current Condition History of Current Condition Onset Date 2-3 months Current Complaints Right shoulder pain with specific positioning. History of Current Condition Pt is a 46 year old male presenting with a 2-3 month history of worsening right shoulder pain. Pt reports that slightly more than one year ago, he had surgical intervention for right biceps tendonosis. Reports that overall therapy went well, he never quite got full ROM back, but was able to get back to normal activity and exercise. Pt reports that he has been doing UE strengthening, and for the last 2-3 months, has experienced increasing discomfort with his right shoulder, especially with resisted flexion and with ER in 90? abduction. Performing activities like reaching into his back seat or pulling his blankets up on himself using his right arm can be quite painful. Notes that abduction seems to be fine, other than at end-range, and elbow ROM is completely pain-free. Prior Treatments and Tests Surgical intervention for right biceps tendonosis with post-op PT Treatment Goals Patient/Caregiver Goals Return to normal exercise routine with full ROM and no increased pain PT-OP-C Subjective Start: 12/25/21 13:47 Freq: Status: Active Protocol: Document 02/04/22 11:15 DCW (Rec: 02/04/22 11:57 DCW [id number]) OP-PT Subjective Patient Comments Patient Comments It feels good. It was a little more painful after our last session, only for about one day. PT-OP-E Functional Tests Start: 12/25/21 13:47 Freq: Status: Active Protocol: Document 12/25/21 12:00 DCW (Rec: 12/25/21 14:11 DCW [id number]) Functional Tests Apley's Scratch Test Action 1- Left Posterior opposite shoulder Action 1- Right Posterior opposite shoulder Action 2- Left T4 Action 2- Right T2 Action 3- Left T6 Action 3- Right T11 PT-OP-F Manual Assessment Start: 12/25/21 13:47 Freq: Status: Active Protocol: Document 12/25/21 12:00 DCW (Rec: 12/25/21 14:11 DCW [id number]) Manual Assessments Joint Mobility Assessment Joint Mobility Assessment Poor scapulothoracic rhythm, scapula hit hard end feel at end range abduction, 110? flexion, and 45? ER (while in 90? abduction) PT-OP-K Range of Motion Start: 12/25/21 13:47 Freq: Status: Active Protocol: Document 01/24/22 10:34 SP (Rec: 01/24/22 11:23 SP [id number]) Shoulder Goniometric Range of Motion Shoulder Right Active Shoulder ROM WFL No Testing Position Sitting Flexion 144 Abduction 147 External Rotation at 90 degrees 35 Abduction External Rotation at 0 degrees Abduction 55 Internal Rotation Behind Back (text) T12 Comments Improved AROM: ff 34 deg ABD decrease 23 deg ER improved 20 deg Post ther ex: FF 145 ABD 155 ER arm at side: 61T 10 IR behind back PT-OP-L Special Tests Start: 12/25/21 13:47 Freq: Status: Active Protocol: Document 12/25/21 12:00 DCW (Rec: 12/25/21 14:11 DCW [id number]) Special Tests Shoulder Special Tests Yergason's Biceps Test Results Negative Passive ER Rotator Cuff Test Results Negative Lift-Off Rotator Cuff Test Results Positive R Comments Pt reports he has been unable to perform this motion since surgery one year ago [employer] Jonny Impingement Test Results Negative Grind Labrum Test Results Negative Empty Can Test Results Negative Drop Arm Rotator Cuff Test Results Negative Clunk Test Test Results Negative Biceps Load II Test Test Results Negative Belly Press Test Results Negative Apprehension Test Test Results Negative Anterior Draw Test Results Negative AC Joint Compression Test Results Negative PT-OP-M Strength Start: 12/25/21 13:47 Freq: Status: Active Protocol: Document 12/25/21 12:00 DCW (Rec: 12/25/21 14:11 DCW [id number]) Shoulder Strength Shoulder Manual Muscle Testing Right Flexion 4+ Good+ Abduction (C5) 5 Normal External Rotation 4- Good- Internal Rotation 5 Normal Left Flexion 5 Normal Abduction (C5) 5 Normal External Rotation 5 Normal Internal Rotation 5 Normal PT-OP-Q Treatments Start: 12/25/21 13:47 Freq: Status: Active Protocol: Document 02/04/22 11:15 DCW (Rec: 02/04/22 11:57 DC [id number]) Gym Equipment Therapeutic Ball Stabilization Exercise Details Hold T-ball vs Perturbation Ball Size/Color Red - 55 cm Body Position Supine, arms 90 deg flexion Prone Walk-out Exercise Details Prone Walk-out Ball Size/Color Green - 65 cm Body Position Prone Hughston's Exercise Details I's,Y's, & T's Ball Size/Color Green - 65 cm 4# Body Position Prone Reps/Duration 3x10 Therapeutic Exercises Other Exercises Resisted Ambulation Other Exercise Name Resisted wall walking elbows bent - HEP Side bilateral Resistance Blue Equipment Used 20' x4 Comments improved GH dissociation Habd con/ecc post decrease resistance Manual Therapy Treatment Soft Tissue Mobilization R shld Body Location subscap, distal lat, distal pec major Mobilization Type Cross-Friction,Rolling, Sustained Pressure,Other Intensity/Depth Moderate Body Position Hooklying Joint Mobilizations A/C Joint R A/C Direction Inferior Grade III Body Position Supine GH Joint R GH Direction Inferior Grade III Body Position Supine Scapulothoracic Joint R ST Direction Lateral Grade III Body Position Supine PT-OP-T Assessment and Plan Start: 12/25/21 13:47 Freq: Status: Active Protocol: Document 02/04/22 11:15 DCW (Rec: 02/04/22 11:57 [facility] [id number]) Physical Therapy Assessment Goals Two Impairment Pt unable to perform normal car activities using his right arm Chcf Goal (LTG) Pt to show ability to use his right arm to reach up and grab the seatbelt while sitting in the passenger side of a vehicle by increasing ER to 90 ? while in 90? abduction LTG Duration 02/19/22 One Impairment Pt does not have an appropriate home exercise program Short Term Goal (STG) Pt to be independent and compliant with an appropriate HEP focusing on stretching and improving ROM STG Duration 01/22/22 Assessment Summary Assessment Pt continues to show great progress, responding well to manual treatment and general strengthening, overhead activities much less stiff and painful. Physical Therapy Plan Frequency and Duration Frequency of Treatment 1-2x/week Duration of treatment (weeks) 8 Plan of Care Start Date 12/25/21 Plan of Care End Date 02/19/22 Therapeutic Interventions Therapeutic Interventions Home Exercise Program,Joint Mobilizations,Manual Therapy, Patient/Caregiver Education, Self-Care/Home Management,Soft Tissue Mobilization, Therapeutic Activities, Therapeutic Exercises Next Visit Focus/Plan Next Note Type Treatment Note Next Visit Plan Next tx add eccentric abd w/ ER use TB. STM, joint mobilization, strengthening
--- NOTE | 2022-02-11 12:46 | PT.OTN ---
Current Diagnoses Pain in right shoulder (02/11/22) Pain in unspecified shoulder (02/11/22) Stiffness of right shoulder, not elsewhere classified (02/11/22) Physical Therapy Treatment Note PT-OP-A Visit Information Start: 12/25/21 13:47 Freq: Status: Active Protocol: Document 02/11/22 12:05 DCW (Rec: 02/11/22 12:46 DCW [id number]) Out-Patient Physical Therapy Visit Information Visit Information Visit Type Treatment Note Visit Start Time 12:05 Visit Stop Time 12:45 Total Visit Minutes 40 Visit Number 8 Number of SLATE HANDLER Visits 0 Evaluation Information Evaluation Date 12/25/21 PT-OP-B Current Condition Start: 12/25/21 13:47 Freq: Status: Active Protocol: Document 12/25/21 12:00 DCW (Rec: 12/25/21 13:58 DCW [id number]) Current Condition History of Current Condition Onset Date 2-3 months Current Complaints Right shoulder pain with specific positioning. History of Current Condition Pt is a 46 year old male presenting with a 2-3 month history of worsening right shoulder pain. Pt reports that slightly more than one year ago, he had surgical intervention for right biceps tendonosis. Reports that overall therapy went well, he never quite got full ROM back, but was able to get back to normal activity and exercise. Pt reports that he has been doing UE strengthening, and for the last 2-3 months, has experienced increasing discomfort with his right shoulder, especially with resisted flexion and with ER in 90? abduction. Performing activities like reaching into his back seat or pulling his blankets up on himself using his right arm can be quite painful. Notes that abduction seems to be fine, other than at end-range, and elbow ROM is completely pain-free. Prior Treatments and Tests Surgical intervention for right biceps tendonosis with post-op PT Treatment Goals Patient/Caregiver Goals Return to normal exercise routine with full ROM and no increased pain PT-OP-C Subjective Start: 12/25/21 13:47 Freq: Status: Active Protocol: Document 02/11/22 12:05 DCW (Rec: 02/11/22 12:46 DCW [id number]) OP-PT Subjective Patient Comments Patient Comments No big changes since our last session. PT-OP-E Functional Tests Start: 12/25/21 13:47 Freq: Status: Active Protocol: Document 12/25/21 12:00 DCW (Rec: 12/25/21 14:11 DCW [id number]) Functional Tests Apley's Scratch Test Action 1- Left Posterior opposite shoulder Action 1- Right Posterior opposite shoulder Action 2- Left T4 Action 2- Right T2 Action 3- Left T6 Action 3- Right T11 PT-OP-F Manual Assessment Start: 12/25/21 13:47 Freq: Status: Active Protocol: Document 12/25/21 12:00 DCW (Rec: 12/25/21 14:11 DCW [id number]) Manual Assessments Joint Mobility Assessment Joint Mobility Assessment Poor scapulothoracic rhythm, scapula hit hard end feel at end range abduction, 110? flexion, and 45? ER (while in 90? abduction) PT-OP-K Range of Motion Start: 12/25/21 13:47 Freq: Status: Active Protocol: Document 01/24/22 10:34 SP (Rec: 01/24/22 11:23 SP [id number]) Shoulder Goniometric Range of Motion Shoulder Right Active Shoulder ROM WFL No Testing Position Sitting Flexion 144 Abduction 147 External Rotation at 90 degrees 35 Abduction External Rotation at 0 degrees Abduction 55 Internal Rotation Behind Back (text) T12 Comments Improved AROM: ff 34 deg ABD decrease 23 deg ER improved 20 deg Post ther ex: FF 145 ABD 155 ER arm at side: 61T 10 IR behind back PT-OP-L Special Tests Start: 12/25/21 13:47 Freq: Status: Active Protocol: Document 12/25/21 12:00 DCW (Rec: 12/25/21 14:11 DCW [id number]) Special Tests Shoulder Special Tests Yergason's Biceps Test Results Negative Passive ER Rotator Cuff Test Results Negative Lift-Off Rotator Cuff Test Results Positive R Comments Pt reports he has been unable to perform this motion since surgery one year ago [employer] Jonny Impingement Test Results Negative Grind Labrum Test Results Negative Empty Can Test Results Negative Drop Arm Rotator Cuff Test Results Negative Clunk Test Test Results Negative Biceps Load II Test Test Results Negative Belly Press Test Results Negative Apprehension Test Test Results Negative Anterior Draw Test Results Negative AC Joint Compression Test Results Negative PT-OP-M Strength Start: 12/25/21 13:47 Freq: Status: Active Protocol: Document 12/25/21 12:00 DCW (Rec: 12/25/21 14:11 DCW [id number]) Shoulder Strength Shoulder Manual Muscle Testing Right Flexion 4+ Good+ Abduction (C5) 5 Normal External Rotation 4- Good- Internal Rotation 5 Normal Left Flexion 5 Normal Abduction (C5) 5 Normal External Rotation 5 Normal Internal Rotation 5 Normal PT-OP-Q Treatments Start: 12/25/21 13:47 Freq: Status: Active Protocol: Document 02/11/22 12:05 DCW (Rec: 02/11/22 12:46 DCW [id number]) Gym Equipment Therapeutic Ball Stabilization Exercise Details Hold T-ball vs Perturbation Ball Size/Color Red - 55 cm Body Position Supine, arms 90 deg flexion Prone Walk-out Exercise Details Prone Walk-out Ball Size/Color Green - 65 cm Body Position Prone Hughston's Exercise Details I's,Y's, & T's Ball Size/Color Green - 65 cm 5# Body Position Prone Reps/Duration 3x10 Therapeutic Exercises Supine Exercises ER Supine Exercise Name ER/IR Side right Resistance 5.5# ball Comments 90/90 Manual Therapy Treatment Soft Tissue Mobilization R shld Body Location subscap, distal lat, distal pec major Mobilization Type Cross-Friction,Rolling, Sustained Pressure,Other Intensity/Depth Moderate Body Position Hooklying Joint Mobilizations A/C Joint R A/C Direction Inferior Grade III Body Position Supine GH Joint R GH Direction Inferior Grade III Body Position Supine Scapulothoracic Joint R ST Direction Lateral Grade III Body Position Supine PT-OP-T Assessment and Plan Start: 12/25/21 13:47 Freq: Status: Active Protocol: Document 02/11/22 12:05 DCW (Rec: 02/11/22 12:46 DCW [id number]) Physical Therapy Assessment Goals Two Impairment Pt unable to perform normal car activities using his right arm Fdc Goal (LTG) Pt to show ability to use his right arm to reach up and grab the seatbelt while sitting in the passenger side of a vehicle by increasing ER to 90 ? while in 90? abduction LTG Duration 02/19/22 One Impairment Pt does not have an appropriate home exercise program Short Term Goal (STG) Pt to be independent and compliant with an appropriate HEP focusing on stretching and improving ROM STG Duration 01/22/22 Assessment Summary Assessment Pt showing continued progress with pain-free mobility, still experiencing pain at end- range. Physical Therapy Plan Frequency and Duration Frequency of Treatment 1-2x/week Duration of treatment (weeks) 8 Plan of Care Start Date 12/25/21 Plan of Care End Date 02/19/22 Therapeutic Interventions Therapeutic Interventions Home Exercise Program,Joint Mobilizations,Manual Therapy, Patient/Caregiver Education, Self-Care/Home Management,Soft Tissue Mobilization, Therapeutic Activities, Therapeutic Exercises Next Visit Focus/Plan Next Note Type Treatment Note Next Visit Plan Next tx add eccentric abd w/ ER use TB. STM, joint mobilization, strengthening
--- NOTE | 2022-02-13 13:00 | PT.OTN ---
Current Diagnoses Pain in right shoulder (02/13/22) Pain in unspecified shoulder (02/13/22) Stiffness of right shoulder, not elsewhere classified (02/13/22) Physical Therapy Treatment Note PT-OP-A Visit Information Start: 12/25/21 13:47 Freq: Status: Active Protocol: Document 02/13/22 12:18 SP (Rec: 02/13/22 13:36 SP [id number]) Out-Patient Physical Therapy Visit Information Visit Information Visit Type Treatment Note Visit Note PN due next visit 10th visit, Ins. SPTA Jose observed tx with [employer] Keily, permission of pt. Visit Start Time 12:18 Visit Stop Time 13:00 Total Visit Minutes 42 Visit Number 9 Number of [employer] PL[employer]NER Visits 1 Evaluation Information Evaluation Date 12/25/21 PT-OP-B Current Condition Start: 12/25/21 13:47 Freq: Status: Active Protocol: Document 12/25/21 12:00 DCW (Rec: 12/25/21 13:58 DCW [id number]) Current Condition History of Current Condition Onset Date 2-3 months Current Complaints Right shoulder pain with specific positioning. History of Current Condition Pt is a 46 year old male presenting with a 2-3 month history of worsening right shoulder pain. Pt reports that slightly more than one year ago, he had surgical intervention for right biceps tendonosis. Reports that overall therapy went well, he never quite got full ROM back, but was able to get back to normal activity and exercise. Pt reports that he has been doing UE strengthening, and for the last 2-3 months, has experienced increasing discomfort with his right shoulder, especially with resisted flexion and with ER in 90? abduction. Performing activities like reaching into his back seat or pulling his blankets up on himself using his right arm can be quite painful. Notes that abduction seems to be fine, other than at end-range, and elbow ROM is completely pain-free. Prior Treatments and Tests Surgical intervention for right biceps tendonosis with post-op PT Treatment Goals Patient/Caregiver Goals Return to normal exercise routine with full ROM and no increased pain PT-OP-C Subjective Start: 12/25/21 13:47 Freq: Status: Active Protocol: Document 02/13/22 12:18 SP (Rec: 02/13/22 13:36 SP [id number]) OP-PT Subjective Patient Comments Patient Comments Pt reported feels like R shld pain is 60-70% better since starting PT with shld but ROM still limited with reaching over head is the worst. Patient Reported Progress Improving PT-OP-E Functional Tests Start: 12/25/21 13:47 Freq: Status: Active Protocol: Document 12/25/21 12:00 DCW (Rec: 12/25/21 14:11 DCW [id number]) Functional Tests Apley's Scratch Test Action 1- Left Posterior opposite shoulder Action 1- Right Posterior opposite shoulder Action 2- Left T4 Action 2- Right T2 Action 3- Left T6 Action 3- Right T11 PT-OP-F Manual Assessment Start: 12/25/21 13:47 Freq: Status: Active Protocol: Document 12/25/21 12:00 DCW (Rec: 12/25/21 14:11 DCW [id number]) Manual Assessments Joint Mobility Assessment Joint Mobility Assessment Poor scapulothoracic rhythm, scapula hit hard end feel at end range abduction, 110? flexion, and 45? ER (while in 90? abduction) PT-OP-K Range of Motion Start: 12/25/21 13:47 Freq: Status: Active Protocol: Document 02/13/22 12:18 SP (Rec: 02/13/22 13:36 SP [id number]) Shoulder Goniometric Range of Motion Shoulder Right Active Shoulder ROM WFL No Testing Position Sitting Flexion 145 Abduction 161 External Rotation at 0 degrees Abduction 89 Internal Rotation Behind Back (text) T10 Comments Improved AROM R shld: FF 144>145 improved 1 deg ABD increased 141>161 deg improved 20 deg ER improved 55>89 deg improved 34 deg IR behind back increase ROM T12> T10 improved 1 vertebra. PT-OP-L Special Tests Start: 12/25/21 13:47 Freq: Status: Active Protocol: Document 12/25/21 12:00 DCW (Rec: 12/25/21 14:11 DCW [id number]) Special Tests Shoulder Special Tests Yergason's Biceps Test Results Negative Passive ER Rotator Cuff Test Results Negative Lift-Off Rotator Cuff Test Results Positive R Comments Pt reports he has been unable to perform this motion since surgery one year ago [employer] Jonny Impingement Test Results Negative Grind Labrum Test Results Negative Empty Can Test Results Negative Drop Arm Rotator Cuff Test Results Negative Clunk Test Test Results Negative Biceps Load II Test Test Results Negative Belly Press Test Results Negative Apprehension Test Test Results Negative Anterior Draw Test Results Negative AC Joint Compression Test Results Negative PT-OP-M Strength Start: 12/25/21 13:47 Freq: Status: Active Protocol: Document 12/25/21 12:00 DCW (Rec: 12/25/21 14:11 DCW [id number]) Shoulder Strength Shoulder Manual Muscle Testing Right Flexion 4+ Good+ Abduction (C5) 5 Normal External Rotation 4- Good- Internal Rotation 5 Normal Left Flexion 5 Normal Abduction (C5) 5 Normal External Rotation 5 Normal Internal Rotation 5 Normal PT-OP-Q Treatments Start: 12/25/21 13:47 Freq: Status: Active Protocol: Document 02/13/22 12:18 SP (Rec: 02/13/22 13:36 SP [id number]) Cardio Equipment Upper Body Ergometer (UBE) Duration (Minutes) 6 RPM 50 Seat Position 12 Height 3.5 Other good tiring response Gym Equipment Shuttle Rebound throwing/catching Exercise Details green small ball Reps/Duration x15 reps Comments Angled 4th from top. cued proper form: abd/ ER concentric/eccentric Therapeutic Ball Prone Walk-out Exercise Details Prone Walk-out Ball Size/Color Green - 65 cm Body Position Prone Reps/Duration x10 reps yoga mat under ball/ UEs Comments cued slower pacing and core fac and improved stability Ashvin's Exercise Details I's,Y's, & T's Ball Size/Color Green - 75 cm 5# Body Position Prone Reps/Duration 3x10 Comments improved focus strengthening provided yoga mat under tball and feet supported up against wall- pt stated felt alot more stable to focus on arm strength. Therapeutic Exercises Standing Exercises throw eccentric return Standing Exercise Name added to HEP Side right Resistance TB #1 anchored high Reps/Minutes x10 reps Comments starting with ease controlled ROM IR, eccentric ER Standing Exercise Name added to HEP Side right Resistance TB #1 Equipment Used mirror for self level shld Reps/Minutes x15 Comments cued level shlds, 90 deg best can ABD, slow ER stretch assist ROM Other Exercises 1/2 kneel AAROM FF, AB Other Exercise Name added to HEP Side right Resistance TB #1 Reps/Minutes x10 reps Comments cued set up and slow FF, ABD to support increase ROM- good painfree PT-OP-T Assessment and Plan Start: 12/25/21 13:47 Freq: Status: Active Protocol: Document 02/13/22 12:18 SP (Rec: 02/13/22 13:36 SP [id number]) Physical Therapy Assessment Goals Two Impairment Pt unable to perform normal car activities using his right arm Roller Skate Assembler Goal (LTG) Pt to show ability to use his right arm to reach up and grab the seatbelt while sitting in the passenger side of a vehicle by increasing ER to 90 ? while in 90? 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 LTG Duration 02/19/22 progressing 02/13/22 One Impairment Pt does not have an appropriate home exercise program Short Term Goal (STG) Pt to be independent and compliant with an appropriate HEP focusing on stretching and improving ROM 02/13/22: progressing: resisted wall/rail walks, Rsisted touch downs, various angles wall pushups, IR/ER TB, over foam roller: snow angels /bow pull/HABD, self FF stretch holding pull up bar. Added: IR/Eccentric ER 90/90 TB, throw/catch TB and rebounder. STG Duration 01/22/22 progressin02/13/22 Progress Towards Goals Progress Towards Goals Progressing Toward Goals Progress Comments Improved AROM R shld: FF 144>145 improved 1 deg ABD increased 141>161 deg improved 20 deg ER improved 55>89 deg improved 34 deg IR behind back increase ROM T12> T10 improved 1 vertebra. Assessment Summary Assessment Pt making good gains in AROM seated. He demonstrated improvement from initial AROM taken beginning of tx, into FF OH and ABD/ER end tx after ther ex AAROM with TB, forgot to remeasure. Pt reports little twinge end feel able ABD/ER instructed stay within painfree range at this time. Painfree throwing ball trampoline (has rebounder at home) and eccentric TB return throwing progression added to HEP. Physical Therapy Plan Frequency and Duration Frequency of Treatment 1-2x/week Duration of treatment (weeks) 8 Plan of Care Start Date 12/25/21 Plan of Care End Date 02/19/22 Therapeutic Interventions Therapeutic Interventions Home Exercise Program,Joint Mobilizations,Manual Therapy, Patient/Caregiver Education, Self-Care/Home Management,Soft Tissue Mobilization, Therapeutic Activities, Therapeutic Exercises Next Visit Focus/Plan Next Note Type Treatment Note Next Visit Plan REcheck add to HEP: eccentric FF, ABD 1/2 kneel, throw/catch rebounder and w/ TB, eccentric abd w/ ER 90 deg use TB. POC: progress strengtheningSTM , joint mobilization
--- NOTE | 2022-02-18 14:27 | PT.OTN ---
Current Diagnoses Pain in right shoulder (02/18/22) Pain in unspecified shoulder (02/18/22) Stiffness of right shoulder, not elsewhere classified (02/18/22) Physical Therapy Treatment Note PT-OP-A Visit Information Start: 12/25/21 13:47 Freq: Status: Active Protocol: Document 02/18/22 13:01 NBM (Rec: 02/18/22 14:23 NBM [id number]) Out-Patient Physical Therapy Visit Information Visit Information Visit Type Progress Note Visit Note SPTA Jose observed tx with WELFARE ANALYST Keily, permission of pt. Visit Start Time 13:01 Visit Stop Time 13:40 Total Visit Minutes 39 Visit Number 10 Number of WELFARE ANALYST Visits 2 PT-OP-B Current Condition Start: 12/25/21 13:47 Freq: Status: Active Protocol: Document 12/25/21 12:00 DCW (Rec: 12/25/21 13:58 DCW [id number]) Current Condition History of Current Condition Onset Date 2-3 months Current Complaints Right shoulder pain with specific positioning. History of Current Condition Pt is a 46 year old male presenting with a 2-3 month history of worsening right shoulder pain. Pt reports that slightly more than one year ago, he had surgical intervention for right biceps tendonosis. Reports that overall therapy went well, he never quite got full ROM back, but was able to get back to normal activity and exercise. Pt reports that he has been doing UE strengthening, and for the last 2-3 months, has experienced increasing discomfort with his right shoulder, especially with resisted flexion and with ER in 90? abduction. Performing activities like reaching into his back seat or pulling his blankets up on himself using his right arm can be quite painful. Notes that abduction seems to be fine, other than at end-range, and elbow ROM is completely pain-free. Prior Treatments and Tests Surgical intervention for right biceps tendonosis with post-op PT Treatment Goals Patient/Caregiver Goals Return to normal exercise routine with full ROM and no increased pain PT-OP-C Subjective Start: 12/25/21 13:47 Freq: Status: Active Protocol: Document 02/18/22 13:01 NBM (Rec: 02/18/22 14:23 NBM [id number]) OP-PT Subjective Patient Comments Patient Comments Pt states his shoulder is improving overall but he has especially had pain with his R hand above his head the last couple of days. Pt has not been using heat or ice - when painful he holds off on overhead exercises. He has been doing Is/Ys/Ts leaning over rather than fully prone over a ball. PT-OP-E Functional Tests Start: 12/25/21 13:47 Freq: Status: Active Protocol: Document 12/25/21 12:00 DCW (Rec: 12/25/21 14:11 DCW [id number]) Functional Tests Apley's Scratch Test Action 1- Left Posterior opposite shoulder Action 1- Right Posterior opposite shoulder Action 2- Left T4 Action 2- Right T2 Action 3- Left T6 Action 3- Right T11 PT-OP-F Manual Assessment Start: 12/25/21 13:47 Freq: Status: Active Protocol: Document 12/25/21 12:00 DCW (Rec: 12/25/21 14:11 DCW [id number]) Manual Assessments Joint Mobility Assessment Joint Mobility Assessment Poor scapulothoracic rhythm, scapula hit hard end feel at end range abduction, 110? flexion, and 45? ER (while in 90? abduction) PT-OP-K Range of Motion Start: 12/25/21 13:47 Freq: Status: Active Protocol: Document 02/13/22 12:18 SP (Rec: 02/13/22 13:36 SP [id number]) Shoulder Goniometric Range of Motion Shoulder Right Active Shoulder ROM WFL No Testing Position Sitting Flexion 145 Abduction 161 External Rotation at 0 degrees Abduction 89 Internal Rotation Behind Back (text) T10 Comments Improved AROM R shld: FF 144>145 improved 1 deg ABD increased 141>161 deg improved 20 deg ER improved 55>89 deg improved 34 deg IR behind back increase ROM T12> T10 improved 1 vertebra. PT-OP-L Special Tests Start: 12/25/21 13:47 Freq: Status: Active Protocol: Document 12/25/21 12:00 DCW (Rec: 12/25/21 14:11 DCW [id number]) Special Tests Shoulder Special Tests Yergason's Biceps Test Results Negative Passive ER Rotator Cuff Test Results Negative Lift-Off Rotator Cuff Test Results Positive R Comments Pt reports he has been unable to perform this motion since surgery one year ago [place] Jonny Impingement Test Results Negative Grind Labrum Test Results Negative Empty Can Test Results Negative Drop Arm Rotator Cuff Test Results Negative Clunk Test Test Results Negative Biceps Load II Test Test Results Negative Belly Press Test Results Negative Apprehension Test Test Results Negative Anterior Draw Test Results Negative AC Joint Compression Test Results Negative PT-OP-M Strength Start: 12/25/21 13:47 Freq: Status: Active Protocol: Document 12/25/21 12:00 DCW (Rec: 12/25/21 14:11 DCW [id number]) Shoulder Strength Shoulder Manual Muscle Testing Right Flexion 4+ Good+ Abduction (C5) 5 Normal External Rotation 4- Good- Internal Rotation 5 Normal Left Flexion 5 Normal Abduction (C5) 5 Normal External Rotation 5 Normal Internal Rotation 5 Normal PT-OP-Q Treatments Start: 12/25/21 13:47 Freq: Status: Active Protocol: Document 02/18/22 13:01 NBM (Rec: 02/18/22 14:23 NB [id number]) Cardio Equipment Upper Body Ergometer (UBE) Duration (Minutes) 6 RPM 50 Seat Position 12 Height 3.0 Gym Equipment Therapeutic Ball [employer] Exercise Details I's,Y's, & T's Ball Size/Color Red- 75 cm 5# Body Position Prone Reps/Duration 3x10 ea Comments feet supported up against wall for pt stability to focus on arm strength (yoga mat declined).vc to rest when UT overactivation present/reset scapulae Therapeutic Exercises Sitting Exercises Pulleys Sitting Exercise Name R Flex/Scap/Abd/IR Side right Resistance AAROM Equipment Used mirror Reps/Minutes 10 x 5SH Comments min cues for UT overactivation - good feedback response, no pain Standing Exercises Wall angels Standing Exercise Name HEP Side bilateral Equipment Used wall Comments initial cue for form, scapular setting throw eccentric return Side right Resistance TB #1 anchored high Reps/Minutes x10 reps Comments starting with ease controlled ROM IR, eccentric ER Side right Resistance TB #1 Equipment Used mirror for self level shld Reps/Minutes x15 Comments cued level shlds, 90 deg best can ABD, slow ER stretch assist ROM Resisted ER Standing Exercise Name Wall ER band slides Resistance blue loop Reps/Minutes 10 x 3SH (2 breaths) Comments max cues initially for scap setting, UT overactivation - improves Wall Push-ups Standing Exercise Name Wall push-ups Comments <> and W hand positions, tactile cues for scap set first Other Exercises 1/2 kneel AAROM FF, AB Side right Resistance TB #1 Reps/Minutes x15 reps Comments cued set up and slow FF, ABD to support increase ROM- good painfree Resisted Ambulation Other Exercise Name Resisted wall walking elbows bent - HEP Side bilateral Resistance Blue Equipment Used 20' x4 Self-Care/Home Management Treatment Education Patient Education Home Exercise Program,Posture Other Education Explained increased resistance when fully prone vs leaning forward for Is/Ys/Ts - pt agreeable to perform prone over physioball. Pt states they have a good amount of exercises right now between shoulder and knee exercises and are currently mixing up exercises each week. Discussed pt advising PT if exercises become too time- consuming. PT-OP-R Modalities Start: 12/25/21 13:47 Freq: Status: Active Protocol: Document 02/18/22 13:01 [facility] (Rec: 02/18/22 14:23 [facility] [id number]) Hot Pack/Cold Pack Treatment Cold Pack Location R shoulder Patient Position Hooklying Treatment Duration (minutes) 10 Patient Tolerance Good PT-OP-T Assessment and Plan Start: 12/25/21 13:47 Freq: Status: Active Protocol: Document 02/18/22 13:01 [facility] (Rec: 02/18/22 14:23 [facility] [id number]) Physical Therapy Assessment Goals Two Impairment Pt unable to perform normal car activities using his right arm Health And Safety Manager Goal (LTG) Pt to show ability to use his right arm to reach up and grab the seatbelt while sitting in the passenger side of a vehicle by increasing ER to 90 ? while in 90? 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 02/18/22: Unchanged. LTG Duration 02/19/22 progressing 02/13/22 One Impairment Pt does not have an appropriate home exercise program Short Term Goal (STG) Pt to be independent and compliant with an appropriate HEP focusing on stretching and improving ROM 02/13/22: progressing: resisted wall/rail walks, Rsisted touch downs, various angles wall pushups, IR/ER TB, over foam roller: snow angels /bow pull/HABD, self FF stretch holding pull up bar. Added: IR/Eccentric ER 90/90 TB, throw/catch TB and rebounder. 02/18/22: Added snow angels at wall. Pt feels that he has a good amount of exercises for HEP at this time as he does both shoulder and knee ex's. STG Duration 01/22/22 progressin02/18/22 Assessment Summary Assessment Pt presents today with observable R shoulder elevation and guarding after two days of reported sharp pain with overhead movement. Pt is progressing towards LTG Two to show ability to use R arm to reach up and grab seatbelt but currently still has pain with this motion. STG One is progressing for patient's HEP. Pt feels that he has a good amount of exercises for HEP at this time as he does both shoulder and knee ex's. Pt responds well to visual feedback to perform ex's without UT overactivation and has observably reduced R shoulder elevation with minimal cueing by end of session. Pt is able to complete R shoulder flexion/ scaption/abduction, and internal rotation with pulleys end of session without pain throughout range and with minimal cueing for UT overactivation. HEP: Kori fuentse progressed from supine to wall w/ initial cues for scapular setting before initiating movement - no HO given. Physical Therapy Plan Frequency and Duration Frequency of Treatment 1-2x/week Duration of treatment (weeks) 8 Plan of Care Start Date 12/25/21 Plan of Care End Date 02/19/22 Therapeutic Interventions Therapeutic Interventions Home Exercise Program,Joint Mobilizations,Manual Therapy, Patient/Caregiver Education, Self-Care/Home Management,Soft Tissue Mobilization, Therapeutic Activities, Therapeutic Exercises Next Visit Focus/Plan Next Note Type Treatment Note Next Visit Plan Consider spider walks. REcheck add to HEP: eccentric FF, ABD 1/2 kneel, throw/catch rebounder and w/ TB, eccentric abd w/ ER 90 deg use TB. POC: progress strengthening, STM, joint mobilization [id number]
--- NOTE | 2022-02-20 14:14 | PT.OPPN ---
Current Diagnoses Pain in right shoulder (02/20/22) Pain in unspecified shoulder (02/20/22) Stiffness of right shoulder, not elsewhere classified (02/20/22) Physical Therapy Progress Note PT-OP-A Visit Information Start: 12/25/21 13:47 Freq: Status: Active Protocol: Document 02/20/22 13:45 DCW (Rec: 02/20/22 14:14 DCW [id number]) Out-Patient Physical Therapy Visit Information Visit Information Visit Type Progress Note Visit Start Time 13:45 Visit Stop Time 14:05 Total Visit Minutes 20 Visit Number 11 Number of CUSTOMER GREETER Visits 0 Evaluation Information Evaluation Date 12/25/21 PT-OP-B Current Condition Start: 12/25/21 13:47 Freq: Status: Active Protocol: Document 12/25/21 12:00 DCW (Rec: 12/25/21 13:58 DCW [id number]) Current Condition History of Current Condition Onset Date 2-3 months Current Complaints Right shoulder pain with specific positioning. History of Current Condition Pt is a 46 year old male presenting with a 2-3 month history of worsening right shoulder pain. Pt reports that slightly more than one year ago, he had surgical intervention for right biceps tendonosis. Reports that overall therapy went well, he never quite got full ROM back, but was able to get back to normal activity and exercise. Pt reports that he has been doing UE strengthening, and for the last 2-3 months, has experienced increasing discomfort with his right shoulder, especially with resisted flexion and with ER in 90? abduction. Performing activities like reaching into his back seat or pulling his blankets up on himself using his right arm can be quite painful. Notes that abduction seems to be fine, other than at end-range, and elbow ROM is completely pain-free. Prior Treatments and Tests Surgical intervention for right biceps tendonosis with post-op PT Treatment Goals Patient/Caregiver Goals Return to normal exercise routine with full ROM and no increased pain PT-OP-C Subjective Start: 12/25/21 13:47 Freq: Status: Active Protocol: Document 02/20/22 13:45 DCW (Rec: 02/20/22 14:14 DCW [id number]) OP-PT Subjective Patient Comments Patient Comments Pt feeling improvement overall , but still experiencing tightness/pain at end-range motions. PT-OP-E Functional Tests Start: 12/25/21 13:47 Freq: Status: Active Protocol: Document 02/20/22 13:45 DCW (Rec: 02/20/22 13:58 DCW [id number]) Functional Tests Apley's Scratch Test Action 1: The subject is instructed to touch the opposite shoulder with his/her hand. This motion checks Glenohumeral adduction, internal rotation , horizontal adduction and scapular protraction Action 2: The subject is instructed to place his/her arm overhead and reach behind the neck to touch his/her upper back. This motion checks Glenohumeral abduction, external rotation and scapular upward rotation and elevation. Action 3: The subject puts his/her hand on the lower back and reaches upward as far as possible. This motion checks glenohumeral adduction, internal rotation and scapular retraction with downward rotation Action 1- Left Posterior opposite shoulder Action 1- Right Posterior opposite shoulder Action 2- Left T5 Action 2- Right T4 Action 3- Left T4 Action 3- Right T8 PT-OP-F Manual Assessment Start: 12/25/21 13:47 Freq: Status: Active Protocol: Document 02/20/22 13:45 DCW (Rec: 02/20/22 13:58 DCW [id number]) Manual Assessments Joint Mobility Assessment Joint Mobility Assessment Improving scapulothoracic rhythm, although still hits scapula hard end feel at end range abduction/flexion, and 60? ER (while in 90? abduction ) PT-OP-K Range of Motion Start: 12/25/21 13:47 Freq: Status: Active Protocol: Document 02/20/22 13:45 DCW (Rec: 02/20/22 13:58 DCW [id number]) Shoulder Goniometric Range of Motion Shoulder Measured in Degrees Right Active Shoulder ROM WFL No Testing Position Standing Flexion 148 Abduction 166 External Rotation at 0 degrees Abduction 71 Internal Rotation Behind Back (text) T8 PT-OP-L Special Tests Start: 12/25/21 13:47 Freq: Status: Active Protocol: Document 02/20/22 13:45 DCW (Rec: 02/20/22 13:58 DCW [id number]) Special Tests Shoulder Special Tests Lift-Off Rotator Cuff Test Results Negative PT-OP-M Strength Start: 12/25/21 13:47 Freq: Status: Active Protocol: Document 02/20/22 13:45 DCW (Rec: 02/20/22 13:58 DCW [id number]) Shoulder Strength Shoulder Manual Muscle Testing Right Flexion 4+ Good+ Abduction (C5) 5 Normal External Rotation 4 Good Internal Rotation 5 Normal Left Flexion 5 Normal Abduction (C5) 5 Normal External Rotation 5 Normal Internal Rotation 5 Normal PT-OP-T Assessment and Plan Start: 12/25/21 13:47 Freq: Status: Active Protocol: Document 02/20/22 13:45 DCW (Rec: 02/20/22 14:14 DCW [id number]) Physical Therapy Assessment Goals Two Impairment Pt unable to perform normal car activities using his right arm Senior Business Development Analyst Goal (LTG) Pt to show ability to use his right arm to reach up and grab the seatbelt while sitting in the passenger side of a vehicle by increasing ER to 90 ? while in 90? abduction 02/13/22: progressing: Limited passenger's grabbing seat belt painful, seated in home delivery driver 's seat able to reach across body for seat belt painfree and NROM and reaching floor pecan picker something better but reaching OH better but still limited. 02/18/22: Unchanged. LTG Duration Met One Impairment Pt does not have an appropriate home exercise program Short Term Goal (STG) Pt to be independent and compliant with an appropriate HEP focusing on stretching and improving ROM 02/13/22: progressing: resisted wall/rail walks, Rsisted touch downs, various angles wall pushups, IR/ER TB, over foam roller: snow angels /bow pull/HABD, self FF stretch holding pull up bar. Added: IR/Eccentric ER 90/90 TB, throw/catch TB and rebounder. 02/18/22: Added snow angels at wall. Pt feels that he has a good amount of exercises for HEP at this time as he does both shoulder and knee ex's. STG Duration Progressing LTG Duration 04/03/22 Assessment Summary Assessment Pt showing fantastic progress overall, left shoulder strength and ROM significantly improved since initial evaluation. Pt relatively happy with current level of function, feels comfortable with HEP and feels he would do well with transition to independent exercise, however admits he would prefer to have a follow-up visit in 1-2 months to ensure his shoulder is continuing to improve. Physical Therapy Plan Frequency and Duration Frequency of Treatment 1x/month Plan of Care Start Date 02/20/22 Plan of Care End Date 04/03/22 Therapeutic Interventions Therapeutic Interventions Home Exercise Program,Joint Mobilizations,Manual Therapy, Patient/Caregiver Education, Self-Care/Home Management,Soft Tissue Mobilization, Therapeutic Activities, Therapeutic Exercises Next Visit Focus/Plan Next Note Type Treatment Note Next Visit Plan Assess adherence to HEP, measure MMT/ROM
--- NOTE | 2022-02-20 14:14 | PT.OPPOC ---
Physical, Occupational & Speech Therapy At [facility] Current Diagnoses Pain in right shoulder (02/20/22) Pain in unspecified shoulder (02/20/22) Stiffness of right shoulder, not elsewhere classified (02/20/22) Visit Care Team Role Provider Type Bebeto Roberson PA-C Attending Provider Non-Staff Family Provider Primary Care Provider Referring Provider Specialty: Medical Address: [address] [place] [address], [id number] Phone: Email: Plan Of Care PT-OP-T Assessment and Plan Start: 12/25/21 13:47 Freq: Status: Active Protocol: Document 02/20/22 13:45 DCW (Rec: 02/20/22 14:14 DCW [id number]) Physical Therapy Assessment Goals Two Impairment Pt unable to perform normal car activities using his right arm Senior Living Goal (LTG) Pt to show ability to use his right arm to reach up and grab the seatbelt while sitting in the passenger side of a vehicle by increasing ER to 90 ? while in 90? abduction 02/13/22: progressing: Limited passenger's grabbing seat belt painful, seated in ross carrier driver 's seat able to reach across body for seat belt painfree and NROM and reaching floor picking machine operator helper something better but reaching [place] better but still limited. 02/18/22: Unchanged. LTG Duration Met One Impairment Pt does not have an appropriate home exercise program Short Term Goal (STG) Pt to be independent and compliant with an appropriate HEP focusing on stretching and improving ROM 02/13/22: progressing: resisted wall/rail walks, Rsisted touch downs, various angles wall pushups, IR/ER TB, over foam roller: snow angels /bow pull/HABD, self FF stretch holding pull up bar. Added: IR/Eccentric ER 90/90 TB, throw/catch TB and rebounder. 02/18/22: Added snow angels at wall. Pt feels that he has a good amount of exercises for HEP at this time as he does both shoulder and knee ex's. STG Duration Progressing LTG Duration 04/03/22 Assessment Summary Assessment Pt showing fantastic progress overall, left shoulder strength and ROM significantly improved since initial evaluation. Pt relatively happy with current level of function, feels comfortable with HEP and feels he would do well with transition to independent exercise, however admits he would prefer to have a follow-up visit in 1-2 months to ensure his shoulder is continuing to improve. Physical Therapy Plan Frequency and Duration Frequency of Treatment 1x/month Plan of Care Start Date 02/20/22 Plan of Care End Date 04/03/22 Therapeutic Interventions Therapeutic Interventions Home Exercise Program,Joint Mobilizations,Manual Therapy, Patient/Caregiver Education, Self-Care/Home Management,Soft Tissue Mobilization, Therapeutic Activities, Therapeutic Exercises Next Visit Focus/Plan Next Note Type Treatment Note Next Visit Plan Assess adherence to HEP, measure MMT/ROM Plan of Care Dates Plan of Care Start Date 02/20/22 Plan of Care End Date 04/03/22 Electronically Signed by: Silver Sorenson, PT 02/20/22 1959 If you are in agreement with this Plan of Care, please return a signed and dated copy. I have reviewed this Plan of Care and certify that the skilled therapy services above are required to meet the patient?s needs. Physician Signature Date Printed Name and Credentials Clinical Instructor Signature Printed Name and Credentials
--- NOTE | 2022-04-03 16:59 | PT.OTN ---
Current Diagnoses Pain in right shoulder (04/03/22) Pain in unspecified shoulder (04/03/22) Stiffness of right shoulder, not elsewhere classified (04/03/22) Physical Therapy Treatment Note PT-OP-A Visit Information Start: 12/25/21 13:47 Freq: Status: Active Protocol: Document 04/03/22 16:45 DCW (Rec: 04/03/22 16:58 DCW [id number]) Out-Patient Physical Therapy Visit Information Visit Information Visit Type Discharge Summary Visit Start Time 16:45 Visit Stop Time 16:57 Total Visit Minutes 12 Visit Number 12 Number of PROTECTIVE SIGNAL OPERATIONS SUPERVISOR Visits 0 Evaluation Information Evaluation Date 12/25/21 PT-OP-B Current Condition Start: 12/25/21 13:47 Freq: Status: Active Protocol: Document 12/25/21 12:00 DCW (Rec: 12/25/21 13:58 DCW [id number]) Current Condition History of Current Condition Onset Date 2-3 months Current Complaints Right shoulder pain with specific positioning. History of Current Condition Pt is a 46 year old male presenting with a 2-3 month history of worsening right shoulder pain. Pt reports that slightly more than one year ago, he had surgical intervention for right biceps tendonosis. Reports that overall therapy went well, he never quite got full ROM back, but was able to get back to normal activity and exercise. Pt reports that he has been doing UE strengthening, and for the last 2-3 months, has experienced increasing discomfort with his right shoulder, especially with resisted flexion and with ER in 90? abduction. Performing activities like reaching into his back seat or pulling his blankets up on himself using his right arm can be quite painful. Notes that abduction seems to be fine, other than at end-range, and elbow ROM is completely pain-free. Prior Treatments and Tests Surgical intervention for right biceps tendonosis with post-op PT Treatment Goals Patient/Caregiver Goals Return to normal exercise routine with full ROM and no increased pain PT-OP-C Subjective Start: 12/25/21 13:47 Freq: Status: Active Protocol: Document 04/03/22 16:45 DCW (Rec: 04/03/22 16:58 DCW [id number]) OP-PT Subjective Patient Comments Patient Comments Pt feeling good overall, still having some increased pain with more intensive chest weightlifting, however with HEP and stretching, is very manageable. I thought about canceling this appointment, but figured that I had it scheduled, so I might as well at least come in and have you measure everything. PT-OP-E Functional Tests Start: 12/25/21 13:47 Freq: Status: Active Protocol: Document 02/20/22 13:45 DCW (Rec: 02/20/22 13:58 DCW [id number]) Functional Tests Apley's Scratch Test Action 1- Left Posterior opposite shoulder Action 1- Right Posterior opposite shoulder Action 2- Left T5 Action 2- Right T4 Action 3- Left T4 Action 3- Right T8 PT-OP-F Manual Assessment Start: 12/25/21 13:47 Freq: Status: Active Protocol: Document 02/20/22 13:45 DCW (Rec: 02/20/22 13:58 DCW [id number]) Manual Assessments Joint Mobility Assessment Joint Mobility Assessment Improving scapulothoracic rhythm, although still hits scapula hard end feel at end range abduction/flexion, and 60? ER (while in 90? abduction ) PT-OP-K Range of Motion Start: 12/25/21 13:47 Freq: Status: Active Protocol: Document 04/03/22 16:45 DCW (Rec: 04/03/22 16:59 DCW [id number]) Shoulder Goniometric Range of Motion Shoulder Right Active Shoulder ROM WFL Yes Testing Position Standing Flexion 162 Abduction 170 External Rotation at 0 degrees Abduction 76 Internal Rotation Behind Back (text) T7 PT-OP-L Special Tests Start: 12/25/21 13:47 Freq: Status: Active Protocol: Document 02/20/22 13:45 DCW (Rec: 02/20/22 13:58 DCW [id number]) Special Tests Shoulder Special Tests Lift-Off Rotator Cuff Test Results Negative PT-OP-M Strength Start: 12/25/21 13:47 Freq: Status: Active Protocol: Document 04/03/22 16:45 DCW (Rec: 04/03/22 16:59 DCW [id number]) Shoulder Strength Shoulder Manual Muscle Testing Right Flexion 5 Normal Abduction (C5) 5 Normal External Rotation 4+ Good+ Internal Rotation 5 Normal Left Flexion 5 Normal Abduction (C5) 5 Normal External Rotation 5 Normal Internal Rotation 5 Normal PT-OP-Q Treatments Start: 12/25/21 13:47 Freq: Status: Active Protocol: Document 02/20/22 13:45 DCW (Rec: 02/20/22 14:14 DCW [id number]) Manual Therapy Treatment Other Other Manual Treatments MMT, ROM, Special testing PT-OP-R Modalities Start: 12/25/21 13:47 Freq: Status: Active Protocol: Document 02/18/22 13:01 NBM (Rec: 02/18/22 14:23 NBM [id number]) Hot Pack/Cold Pack Treatment Cold Pack Location R shoulder Patient Position Hooklying Treatment Duration (minutes) 10 Patient Tolerance Good PT-OP-T Assessment and Plan Start: 12/25/21 13:47 Freq: Status: Active Protocol: Document 04/03/22 16:45 DCW (Rec: 04/03/22 16:58 DCW [id number]) Physical Therapy Assessment Goals Two Impairment Pt unable to perform normal car activities using his right arm Detention Goal (LTG) Pt to show ability to use his right arm to reach up and grab the seatbelt while sitting in the passenger side of a vehicle by increasing ER to 90 ? while in 90? 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 02/18/22: Unchanged. LTG Duration Met One Impairment Pt does not have an appropriate home exercise program Short Term Goal (STG) Pt to be independent and compliant with an appropriate HEP focusing on stretching and improving ROM 02/13/22: progressing: resisted wall/rail walks, Rsisted touch downs, various angles wall pushups, IR/ER TB, over foam roller: snow angels /bow pull/HABD, self FF stretch holding pull up bar. Added: IR/Eccentric ER 90/90 TB, throw/catch TB and rebounder. 02/18/22: Added snow angels at wall. Pt feels that he has a good amount of exercises for HEP at this time as he does both shoulder and knee ex's. STG Duration Met Progress Towards Goals Progress Towards Goals Goals Met Assessment Summary Assessment Pt has met all goals, has good understanding of comprehensive HEP, is appropriate for discharge at this time. Pt understands that he will require a new referral in order to return to skilled therapy in the future . Physical Therapy Plan Frequency and Duration Frequency of Treatment 1x/month Plan of Care Start Date 02/20/22 Plan of Care End Date 04/03/22 Therapeutic Interventions Therapeutic Interventions Home Exercise Program,Joint Mobilizations,Manual Therapy, Patient/Caregiver Education, Self-Care/Home Management,Soft Tissue Mobilization, Therapeutic Activities, Therapeutic Exercises Discharge Physical Therapy Discharge Reasons Goals Met Next Visit Focus/Plan Next Note Type Discharge Summary
== END 2022-04-08 12:07 | disposition home or self-care (01) ==
LOC: PHYS 16:45
PROVIDERS: Family Provider Physician Assistant; PCP Physician Assistant; Referring Provider Physician Assistant; Visit Provider Physician Assistant
DX: M25.511 Pain in right shoulder (principal); M25.611 Stiffness of right shoulder, not elsewhere classified; M25.519 Pain in unspecified shoulder
CPT/HCPCS: 97110; 97140; 97161; 97535

== ENCOUNTER 2024-06-23 15:15 | Outpatient (RCR) | payer OTHER, SELFPAY ==
--- NOTE | 2024-05-11 13:07 | PT.OIE ---
Current Diagnoses Pain in right hip (05/11/24) Visit Care Team Role Provider Type Bebeto Roberson PA-C Family Provider Non-Staff Primary Care Provider Specialty: Medical Address: [address] [place] [address], [phone] Phone: Email: Lan Howe PA-C Attending Provider Non-Staff Referring Provider Specialty: Medical Address: [address] [place] [address], [place], [address] Email: Physical Therapy Initial Evaluation PT-OP-A Visit Information Start: 05/10/24 16:02 Freq: Status: Active Protocol: Document 05/11/24 09:46 MB (Rec: 05/11/24 10:25 MB [id number]) Out-Patient Physical Therapy Visit Information Visit Information Visit Type Initial Evaluation Visit Start Time 09:46 Visit Stop Time 10:26 Visit Number 1 Number of OPEN HEARTH MELTER Visits 0 Evaluation Information Evaluation Date 05/11/24 PT-OP-B Current Condition Start: 05/10/24 16:02 Freq: Status: Active Protocol: Document 05/11/24 09:46 MB (Rec: 05/11/24 10:25 MB [id number]) Current Condition History of Current Condition Onset Date 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 He is doing lifting, jogging, squats, one leg STS, lunging, star jumps, kettle oro swings. Pt sleeps well. He sleeps on his back or his stomach. Pt has not had any falls. Sitting for a long time does not bother him but when he stands up and starts forward, he has trouble with right hip giving way. Pain comes and goes. Prior Treatments and Tests Lumbar MRI 05/01/21 IMPRESSION: Probable impingement of the descending left S1 nerve roots within the left subarticular zone at the L5-S1 level due to a disc extrusion with associated annular fissure. Degenerative changes at L4-L5 also present, without evidence of focal nerve root impingement. B hip x-ray 02/23/24: negative Treatment Goals Patient/Caregiver Goals To identify what the problem is and have things that will make it better. PT-OP-C Subjective Start: 05/10/24 16:02 Freq: Status: Active Protocol: Document 05/11/24 09:46 MB (Rec: 05/11/24 10:25 MB [id number]) OP-PT Subjective Patient Comments Patient Comments See history of current condition PT-OP-F Manual Assessment Start: 05/10/24 16:02 Freq: Status: Active Protocol: Document 05/11/24 09:46 MB (Rec: 05/11/24 13:07 MB [id number]) Manual Assessments Soft Tissue Assessment Soft Tissue Mobility Assessment Increased tension left hip flexor and rectus femoris compared to the right PT-OP-G Mobility & Gait Start: 05/10/24 16:02 Freq: Status: Active Protocol: Document 05/11/24 09:46 MB (Rec: 05/11/24 10:25 MB [id number]) OP Gait Assessment Comments Gait Comments Gait with socks on: increased Robert angle, greater on the right and pt has popping in feet and ankles, tends to hyperextends knees with gait PT-OP-J Posture/Palpation/Skin Start: 05/10/24 16:02 Freq: Status: Active Protocol: Document 05/11/24 09:46 MB (Rec: 05/11/24 10:25 MB [id number]) Posture Evaluation Comments Posture Comments Socks donned: increased posterior cervical musculature buldge on the left, history of right shoulder surgery and right shoulder is higher than the left and scapula is more elevated and protracted and left scapula wings, decreased thoracic kyphosis and lumbar lordosis, mild right thoracic convexity, right iliac crest mildly higher than the left, pt report right leg is shorter than the left. Legs straight in supine, PT can roll left femur well and right femor rolls less and to neutral at best Occ, pt has B lateral leg numbness, more on the left, when he has back trouble PT-OP-L Special Tests Start: 05/10/24 16:02 Freq: Status: Active Protocol: Document 05/11/24 09:46 MB (Rec: 05/11/24 10:25 MB [id number]) Special Tests Hip Special Tests BOYD Comments Negative B Scour Comments Negative on the left and mild discomfort on the right PT-OP-M Strength Start: 05/10/24 16:02 Freq: Status: Active Protocol: Document 05/11/24 09:46 MB (Rec: 05/11/24 10:25 MB [id number]) Hip Strength Hip Manual Muscle Testing Left Flexion (L2) 5 Normal Extension (S1) 5 Normal Abduction 5 Normal Adduction 5 Normal External Rotation 5 Normal Internal Rotation 5 Normal Right Flexion (L2) 4+ Good+ Extension (S1) 5 Normal Abduction 5 Normal Adduction 4+ Good+ External Rotation 5 Normal Internal Rotation 4+ Good+ Knee Strength Knee Manual Muscle Testing Left Flexion (S2) 5 Normal Extension (L3) 5 Normal Right Flexion (S2) 5 Normal Extension (L3) 5 Normal Ankle/Foot Strength Ankle and Foot Manual Muscle Testing Left Dorsiflexion (L4) 5 Normal Right Dorsiflexion (L4) 5 Normal Toe Strength Toe Manual Muscle Testing Left Great Toe Extension 5 Normal Right Great Toe Extension 5 Normal PT-OP-Q Treatments Start: 05/10/24 16:02 Freq: Status: Active Protocol: Document 05/11/24 09:46 MB (Rec: 05/11/24 10:25 MB [id number]) Therapeutic Exercises Supine Exercises Pelvic realignment exercises Supine Exercise Name HEP Side bilateral Equipment Used Blue ball Reps/Minutes 5 reps, 3 sec hold Comments Feet together ball squeeze iso , knee opp ankle iso, thigh press down iso PT-OP-T Assessment and Plan Start: 05/10/24 16:02 Freq: Status: Active Protocol: Document 05/11/24 09:46 MB (Rec: 05/11/24 13:07 MB [id number]) Physical Therapy Assessment Rehab Potential Rehabilitation Potential Fair Evaluation Complexity Number of Personal Factors/Comorbidities 1-2 Number of Body Systems Impaired 1-2 Clinical Presentation at Evaluation Evolving Impairments Impairments Gait,Pain,Posture,ROM, Sensation,Soft Tissue Mobility ,Strength Goals 4 Impairment Lack of PT HEP Abstract Manager Goal (LTG) Pt will perform progressive HEP with I including pelvic realignment exercises, flexibility, balance and strengthening exercises to improve symptoms, alignment, flexibility and strength. LTG Duration 8 weeks 3 Impairment Reports of imbalance Abstract Manager Goal (LTG) Pt will perform B SLS with opposite leg close to 90/90 hip and knee for at least 1' to improve functional balance. LTG Duration 8 weeks 2 Impairment Right hip weakness Abstract Manager Goal (LTG) Pt will present with right hip flexion strength to 5/5 to improve functional stability of hip. LTG Duration 8 weeks 1 Impairment Occ right hip giving way with first forward step upon standing from sitting Prison Goal (LTG) Pt will report an 85% improvement in episodes of right hip giving way with first forward step upon standing from sitting. LTG Duration 8 weeks Assessment Summary Assessment Pt is a 48 y/o male presenting with four year history of intermittent right hip giving way after first forward steps after arising from sitting. Hip x-ray was negative. In 2021, pt had lumbar MRI revealing probable impingement of the descending left S1 nerve roots within the left subarticular zone at the L5-S1 level due to a disc extrusion with associated annular fissure. He reports intermittent B lateral leg paresthesias. Pt has not correlated right hip symptoms with lumbar findings and it is possible that they are connected given the proximal attachment of the psoas major and minor. Pt presents with right hip weakness compared to the left in supine, some c/o mild discomfort with right Scour and increased tension right hip flexor and rectus femoris. He presents with right iliac crest mildly higher than the left and reports of right leg shorter than the left. Pt will benefit from PT for manual, alignment , postural, flexibility, strengthening and balance treatment. Monitor response to PT and if he con't with right hip symptomology, will refer back to provider for possible orthopedic assessment/further right hip diagnostics. Physical Therapy Plan Frequency and Duration Frequency of Treatment 2x/Week Duration of treatment (weeks) 8 Plan of Care Start Date 05/11/24 Plan of Care End Date 07/09/24 Therapeutic Interventions Therapeutic Interventions Balance Training,Canalithic Repositioning,Home Exercise Program,Joint Mobilizations, Manual Therapy,Neuromuscular Re-education,Patient/Caregiver Education,Self-Care/Home Management,Soft Tissue Mobilization,Taping, Therapeutic Activities, Therapeutic Exercises Modalities Cold Pack/Ice Massage,Electric Stimulation,Hot Packs, Ultrasound Next Visit Focus/Plan Next Note Type Treatment Note Next Visit Plan Review pelvic realignment exercises, add Juwan stretch and SLS, initiate manual work Progress further flexibility exercises including thoracic flexibility, LE strengthening, LE strengthening such as backwards and side stepping with theraband, single leg heel raises (consider trauma release exercises in future for full LE work-out) Monitor response to therapy and refer back to doctor if needed if suspect hip MRI is appropriate
--- NOTE | 2024-05-17 09:02 | PT.OTN ---
Current Diagnoses Pain in right hip (05/17/24) Physical Therapy Treatment Note PT-OP-A Visit Information Start: 05/10/24 16:02 Freq: Status: Active Protocol: Document 05/17/24 08:18 MB (Rec: 05/17/24 09:02 MB [id number]) Out-Patient Physical Therapy Visit Information Visit Information Visit Type Treatment Note Visit Start Time 08:18 Visit Stop Time 08:58 Visit Number 2 Number of BLACK LEATHER TRIMMER Visits 0 Evaluation Information Evaluation Date 05/11/24 PT-OP-B Current Condition Start: 05/10/24 16:02 Freq: Status: Active Protocol: Document 05/11/24 09:46 MB (Rec: 05/11/24 10:25 MB [id number]) Current Condition History of Current Condition Onset Date 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 He is doing lifting, jogging, squats, one leg STS, lunging, star jumps, kettle oro swings. Pt sleeps well. He sleeps on his back or his stomach. Pt has not had any falls. Sitting for a long time does not bother him but when he stands up and starts forward, he has trouble with right hip giving way. Pain comes and goes. Prior Treatments and Tests Lumbar MRI 05/01/21 IMPRESSION: Probable impingement of the descending left S1 nerve roots within the left subarticular zone at the L5-S1 level due to a disc extrusion with associated annular fissure. Degenerative changes at L4-L5 also present, without evidence of focal nerve root impingement. B hip x-ray 02/23/24: negative Treatment Goals Patient/Caregiver Goals To identify what the problem is and have things that will make it better. PT-OP-C Subjective Start: 05/10/24 16:02 Freq: Status: Active Protocol: Document 05/17/24 08:18 MB (Rec: 05/17/24 09:02 MB [id number]) OP-PT Subjective Patient Comments Patient Comments Pt has been performing his exercises and he did feel his right hip a little yesterday. PT-OP-F Manual Assessment Start: 05/10/24 16:02 Freq: Status: Active Protocol: Document 05/11/24 09:46 MB (Rec: 05/11/24 13:07 MB [id number]) Manual Assessments Soft Tissue Assessment Soft Tissue Mobility Assessment Increased tension left hip flexor and rectus femoris compared to the right PT-OP-G Mobility & Gait Start: 05/10/24 16:02 Freq: Status: Active Protocol: Document 05/11/24 09:46 MB (Rec: 05/11/24 10:25 MB [id number]) OP Gait Assessment Comments Gait Comments Gait with socks on: increased Robert angle, greater on the right and pt has popping in feet and ankles, tends to hyperextends knees with gait PT-OP-J Posture/Palpation/Skin Start: 05/10/24 16:02 Freq: Status: Active Protocol: Document 05/11/24 09:46 MB (Rec: 05/11/24 10:25 MB [id number]) Posture Evaluation Comments Posture Comments Socks donned: increased posterior cervical musculature buldge on the left, history of right shoulder surgery and right shoulder is higher than the left and scapula is more elevated and protracted and left scapula wings, decreased thoracic kyphosis and lumbar lordosis, mild right thoracic convexity, right iliac crest mildly higher than the left, pt report right leg is shorter than the left. Legs straight in supine, PT can roll left femur well and right femor rolls less and to neutral at best Occ, pt has B lateral leg numbness, more on the left, when he has back trouble PT-OP-L Special Tests Start: 05/10/24 16:02 Freq: Status: Active Protocol: Document 05/11/24 09:46 MB (Rec: 05/11/24 10:25 MB [id number]) Special Tests Hip Special Tests BOYD Comments Negative B Scour Comments Negative on the left and mild discomfort on the right PT-OP-M Strength Start: 05/10/24 16:02 Freq: Status: Active Protocol: Document 05/11/24 09:46 MB (Rec: 05/11/24 10:25 MB [id number]) Hip Strength Hip Manual Muscle Testing Left Flexion (L2) 5 Normal Extension (S1) 5 Normal Abduction 5 Normal Adduction 5 Normal External Rotation 5 Normal Internal Rotation 5 Normal Right Flexion (L2) 4+ Good+ Extension (S1) 5 Normal Abduction 5 Normal Adduction 4+ Good+ External Rotation 5 Normal Internal Rotation 4+ Good+ Knee Strength Knee Manual Muscle Testing Left Flexion (S2) 5 Normal Extension (L3) 5 Normal Right Flexion (S2) 5 Normal Extension (L3) 5 Normal Ankle/Foot Strength Ankle and Foot Manual Muscle Testing Left Dorsiflexion (L4) 5 Normal Right Dorsiflexion (L4) 5 Normal Toe Strength Toe Manual Muscle Testing Left Great Toe Extension 5 Normal Right Great Toe Extension 5 Normal PT-OP-Q Treatments Start: 05/10/24 16:02 Freq: Status: Active Protocol: Document 05/17/24 08:18 MB (Rec: 05/17/24 09:02 MB [id number]) Therapeutic Exercises Supine Exercises Juwan stretch Supine Exercise Name HEP Side bilateral Reps/Minutes 1 rep each leg, 45 sec hold Comments Side of mat, knee to chest, squeeze glutes and abd draw in Pelvic realignment exercises Supine Exercise Name HEP review and ed to keep feet together for first exercise Side bilateral Equipment Used Blue ball Reps/Minutes 5 reps, 3 sec hold Comments Feet together ball squeeze iso , knee opp ankle iso, thigh press down iso Standing Exercises Doorway combo stretch Standing Exercise Name HEP Reps/Minutes Progressive for pect, hip flexor (calves and QL) Manual Therapy Treatment Consent Patient gave verbal consent for manual Yes treatment Other Other Manual Treatments Pt in B side lying: B rib recoil to improve rib mobility , QL, paraspinals, grade I-II mobilizations ribs and STM latissimus, STM right hip rotators as they are more tense than the left, TrP B QL and right iliopsoas PT-OP-T Assessment and Plan Start: 05/10/24 16:02 Freq: Status: Active Protocol: Document 05/17/24 08:18 MB (Rec: 05/17/24 09:02 MB [id number]) Physical Therapy Assessment Rehab Potential Rehabilitation Potential Fair Evaluation Complexity Number of Personal Factors/Comorbidities 1-2 Number of Body Systems Impaired 1-2 Clinical Presentation at Evaluation Evolving Impairments Impairments Gait,Pain,Posture,ROM, Sensation,Soft Tissue Mobility ,Strength Goals 4 Impairment Lack of PT HEP Clinical Provider Trainer Goal (LTG) Pt will perform progressive HEP with I including pelvic realignment exercises, flexibility, balance and strengthening exercises to improve symptoms, alignment, flexibility and strength. LTG Duration 8 weeks 3 Impairment Reports of imbalance Clinical Provider Trainer Goal (LTG) Pt will perform B SLS with opposite leg close to 90/90 hip and knee for at least 1' to improve functional balance. LTG Duration 8 weeks 2 Impairment Right hip weakness Clinical Provider Trainer Goal (LTG) Pt will present with right hip flexion strength to 5/5 to improve functional stability of hip. LTG Duration 8 weeks 1 Impairment Occ right hip giving way with first forward step upon standing from sitting Alf Goal (LTG) Pt will report an 85% improvement in episodes of right hip giving way with first forward step upon standing from sitting. LTG Duration 8 weeks Assessment Summary Assessment Initiated manual work and progressed flexibility/ stretching exercises today. Con't per plan. Physical Therapy Plan Frequency and Duration Frequency of Treatment 2x/Week Duration of treatment (weeks) 8 Plan of Care Start Date 05/11/24 Plan of Care End Date 07/09/24 Therapeutic Interventions Therapeutic Interventions Balance Training,Canalithic Repositioning,Home Exercise Program,Joint Mobilizations, Manual Therapy,Neuromuscular Re-education,Patient/Caregiver Education,Self-Care/Home Management,Soft Tissue Mobilization,Taping, Therapeutic Activities, Therapeutic Exercises Modalities Cold Pack/Ice Massage,Electric Stimulation,Hot Packs, Ultrasound Next Visit Focus/Plan Next Note Type Treatment Note Next Visit Plan Ongoing manual work SLS Progress further flexibility exercises including thoracic flexibility, LE strengthening, LE strengthening such as backwards and side stepping with theraband, single leg heel raises (consider trauma release exercises in future for full LE work-out) Monitor response to therapy and refer back to doctor if needed if suspect hip MRI is appropriate Consider aviator dozen exercises
--- NOTE | 2024-05-19 10:36 | PT.OTN ---
Current Diagnoses Pain in right hip (05/19/24) Physical Therapy Treatment Note PT-OP-A Visit Information Start: 05/10/24 16:02 Freq: Status: Active Protocol: Document 05/19/24 09:48 MB (Rec: 05/19/24 10:36 MB [id number]) Out-Patient Physical Therapy Visit Information Visit Information Visit Type Treatment Note Visit Start Time 09:48 Visit Stop Time 10:28 Visit Number 5 Number of PACKAGE CLERK Visits 0 Evaluation Information Evaluation Date 05/11/24 PT-OP-B Current Condition Start: 05/10/24 16:02 Freq: Status: Active Protocol: Document 05/11/24 09:46 MB (Rec: 05/11/24 10:25 MB [id number]) Current Condition History of Current Condition Onset Date 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 He is doing lifting, jogging, squats, one leg STS, lunging, star jumps, kettle oro swings. Pt sleeps well. He sleeps on his back or his stomach. Pt has not had any falls. Sitting for a long time does not bother him but when he stands up and starts forward, he has trouble with right hip giving way. Pain comes and goes. Prior Treatments and Tests Lumbar MRI 05/01/21 IMPRESSION: Probable impingement of the descending left S1 nerve roots within the left subarticular zone at the L5-S1 level due to a disc extrusion with associated annular fissure. Degenerative changes at L4-L5 also present, without evidence of focal nerve root impingement. B hip x-ray 02/23/24: negative Treatment Goals Patient/Caregiver Goals To identify what the problem is and have things that will make it better. PT-OP-C Subjective Start: 05/10/24 16:02 Freq: Status: Active Protocol: Document 05/19/24 09:48 MB (Rec: 05/19/24 10:36 MB [id number]) OP-PT Subjective Patient Comments Patient Comments Pt states that he felt a little bit better after treatment and tried exercises at home. PT-OP-F Manual Assessment Start: 05/10/24 16:02 Freq: Status: Active Protocol: Document 05/11/24 09:46 MB (Rec: 05/11/24 13:07 MB [id number]) Manual Assessments Soft Tissue Assessment Soft Tissue Mobility Assessment Increased tension left hip flexor and rectus femoris compared to the right PT-OP-G Mobility & Gait Start: 05/10/24 16:02 Freq: Status: Active Protocol: Document 05/11/24 09:46 MB (Rec: 05/11/24 10:25 MB [id number]) OP Gait Assessment Comments Gait Comments Gait with socks on: increased Robert angle, greater on the right and pt has popping in feet and ankles, tends to hyperextends knees with gait PT-OP-J Posture/Palpation/Skin Start: 05/10/24 16:02 Freq: Status: Active Protocol: Document 05/11/24 09:46 MB (Rec: 05/11/24 10:25 MB [id number]) Posture Evaluation Comments Posture Comments Socks donned: increased posterior cervical musculature buldge on the left, history of right shoulder surgery and right shoulder is higher than the left and scapula is more elevated and protracted and left scapula wings, decreased thoracic kyphosis and lumbar lordosis, mild right thoracic convexity, right iliac crest mildly higher than the left, pt report right leg is shorter than the left. Legs straight in supine, PT can roll left femur well and right femor rolls less and to neutral at best Occ, pt has B lateral leg numbness, more on the left, when he has back trouble PT-OP-L Special Tests Start: 05/10/24 16:02 Freq: Status: Active Protocol: Document 05/11/24 09:46 MB (Rec: 05/11/24 10:25 MB [id number]) Special Tests Hip Special Tests BOYD Comments Negative B Scour Comments Negative on the left and mild discomfort on the right PT-OP-M Strength Start: 05/10/24 16:02 Freq: Status: Active Protocol: Document 05/11/24 09:46 MB (Rec: 05/11/24 10:25 MB [id number]) Hip Strength Hip Manual Muscle Testing Left Flexion (L2) 5 Normal Extension (S1) 5 Normal Abduction 5 Normal Adduction 5 Normal External Rotation 5 Normal Internal Rotation 5 Normal Right Flexion (L2) 4+ Good+ Extension (S1) 5 Normal Abduction 5 Normal Adduction 4+ Good+ External Rotation 5 Normal Internal Rotation 4+ Good+ Knee Strength Knee Manual Muscle Testing Left Flexion (S2) 5 Normal Extension (L3) 5 Normal Right Flexion (S2) 5 Normal Extension (L3) 5 Normal Ankle/Foot Strength Ankle and Foot Manual Muscle Testing Left Dorsiflexion (L4) 5 Normal Right Dorsiflexion (L4) 5 Normal Toe Strength Toe Manual Muscle Testing Left Great Toe Extension 5 Normal Right Great Toe Extension 5 Normal PT-OP-Q Treatments Start: 05/10/24 16:02 Freq: Status: Active Protocol: Document 05/19/24 09:48 MB (Rec: 05/19/24 10:36 MB [id number]) Therapeutic Exercises Supine Exercises Hamstring and AP and TFL/ITB stretch Supine Exercise Name HEP Side bilateral Reps/Minutes 45 AP or 45 sec hold Comments Use of gait belt looped around foot, hamstring AP MWM, TFL/ ITB stretch Hip rotator stretch Supine Exercise Name HEP Side bilateral Reps/Minutes 45 sec hold Comments [place] leg up, hold onto back of thigh Sidelying Exercises Open book Sidelying Exercise Name HEP Side bilateral Reps/Minutes 5 reps each side Standing Exercises SLS Standing Exercise Name HEP Side bilateral Comments Up to one minute each leg Manual Therapy Treatment Consent Patient gave verbal consent for manual Yes treatment Other Other Manual Treatments Pt in B side lying: rib recoil to improve rib mobility, QL, paraspinals, grade I-II mobs, STM glutes, rib mobilization manually upper ribs in side lying, right vastus lateralis STM, STM right glutes PT-OP-T Assessment and Plan Start: 05/10/24 16:02 Freq: Status: Active Protocol: Document 05/19/24 09:48 MB (Rec: 05/19/24 10:36 MB [id number]) Physical Therapy Assessment Rehab Potential Rehabilitation Potential Fair Evaluation Complexity Number of Personal Factors/Comorbidities 1-2 Number of Body Systems Impaired 1-2 Clinical Presentation at Evaluation Evolving Impairments Impairments Gait,Pain,Posture,ROM, Sensation,Soft Tissue Mobility ,Strength Goals 4 Impairment Lack of PT HEP [facility] Goal (LTG) Pt will perform progressive HEP with I including pelvic realignment exercises, flexibility, balance and strengthening exercises to improve symptoms, alignment, flexibility and strength. LTG Duration 8 weeks 3 Impairment Reports of imbalance Insurance Agents Supervisor Goal (LTG) Pt will perform B SLS with opposite leg close to 90/90 hip and knee for at least 1' to improve functional balance. LTG Duration 8 weeks 2 Impairment Right hip weakness [facility] Goal (LTG) Pt will present with right hip flexion strength to 5/5 to improve functional stability of hip. LTG Duration 8 weeks 1 Impairment Occ right hip giving way with first forward step upon standing from sitting Insurance Agents Supervisor Goal (LTG) Pt will report an 85% improvement in episodes of right hip giving way with first forward step upon standing from sitting. LTG Duration 8 weeks Assessment Summary Assessment Progressed flexibility exercises today and added a balance exercise. Con't per plan. Physical Therapy Plan Frequency and Duration Frequency of Treatment 2x/Week Duration of treatment (weeks) 8 Plan of Care Start Date 05/11/24 Plan of Care End Date 07/09/24 Therapeutic Interventions Therapeutic Interventions Balance Training,Canalithic Repositioning,Home Exercise Program,Joint Mobilizations, Manual Therapy,Neuromuscular Re-education,Patient/Caregiver Education,Self-Care/Home Management,Soft Tissue Mobilization,Taping, Therapeutic Activities, Therapeutic Exercises Modalities Cold Pack/Ice Massage,Electric Stimulation,Hot Packs, Ultrasound Next Visit Focus/Plan Next Note Type Treatment Note Next Visit Plan Ongoing manual work Consider golfer's lift for core and balance LE strengthening such as backwards and side stepping with theraband, single leg heel raises (consider trauma release exercises in future for full LE work-out) Monitor response to therapy and refer back to doctor if needed if suspect hip MRI is appropriate Consider aviator dozen exercises
--- NOTE | 2024-05-26 11:38 | PT.OTN ---
Current Diagnoses Pain in right hip (05/26/24) Physical Therapy Treatment Note PT-OP-A Visit Information Start: 05/10/24 16:02 Freq: Status: Active Protocol: Document 05/26/24 10:48 MB (Rec: 05/26/24 11:38 MB [id number]) Out-Patient Physical Therapy Visit Information Visit Information Visit Type Treatment Note Visit Start Time 10:48 Visit Stop Time 11:28 Visit Number 6 Number of SHOP FOREMAN Visits 0 Evaluation Information Evaluation Date 05/11/24 PT-OP-B Current Condition Start: 05/10/24 16:02 Freq: Status: Active Protocol: Document 05/11/24 09:46 MB (Rec: 05/11/24 10:25 MB [id number]) Current Condition History of Current Condition 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 He is doing lifting, jogging, squats, one leg STS, lunging, star jumps, kettle oro swings. Pt sleeps well. He sleeps on his back or his stomach. Pt has not had any falls. Sitting for a long time does not bother him but when he stands up and starts forward, he has trouble with right hip giving way. Pain comes and goes. Prior Treatments and Tests Lumbar MRI 05/01/21 IMPRESSION: Probable impingement of the descending left S1 nerve roots within the left subarticular zone at the L5-S1 level due to a disc extrusion with associated annular fissure. Degenerative changes at L4-L5 also present, without evidence of focal nerve root impingement. B hip x-ray 02/23/24: negative Treatment Goals Patient/Caregiver Goals To identify what the problem is and have things that will make it better. PT-OP-C Subjective Start: 05/10/24 16:02 Freq: Status: Active Protocol: Document 05/26/24 10:48 MB (Rec: 05/26/24 11:38 MB [id number]) OP-PT Subjective Patient Comments Patient Comments Pt states that the past two days, his right hip has bothered him more than it has in years. It's been consistently troublesome with standing and pushing off and walking. He did notice discomfort when using band to stretch TFL and ITB with leg over left leg. PT-OP-F Manual Assessment Start: 05/10/24 16:02 Freq: Status: Active Protocol: Document 05/11/24 09:46 MB (Rec: 05/11/24 13:07 MB [id number]) Manual Assessments Soft Tissue Assessment Soft Tissue Mobility Assessment Increased tension left hip flexor and rectus femoris compared to the right PT-OP-G Mobility & Gait Start: 05/10/24 16:02 Freq: Status: Active Protocol: Document 05/11/24 09:46 MB (Rec: 05/11/24 10:25 MB [id number]) OP Gait Assessment Comments Gait Comments Gait with socks on: increased Robert angle, greater on the right and pt has popping in feet and ankles, tends to hyperextends knees with gait PT-OP-J Posture/Palpation/Skin Start: 05/10/24 16:02 Freq: Status: Active Protocol: Document 05/11/24 09:46 MB (Rec: 05/11/24 10:25 MB [id number]) Posture Evaluation Comments Posture Comments Socks donned: increased posterior cervical musculature buldge on the left, history of right shoulder surgery and right shoulder is higher than the left and scapula is more elevated and protracted and left scapula wings, decreased thoracic kyphosis and lumbar lordosis, mild right thoracic convexity, right iliac crest mildly higher than the left, pt report right leg is shorter than the left. Legs straight in supine, PT can roll left femur well and right femor rolls less and to neutral at best Occ, pt has B lateral leg numbness, more on the left, when he has back trouble PT-OP-L Special Tests Start: 05/10/24 16:02 Freq: Status: Active Protocol: Document 05/11/24 09:46 MB (Rec: 05/11/24 10:25 MB [id number]) Special Tests Hip Special Tests BOYD Comments Negative B Scour Comments Negative on the left and mild discomfort on the right PT-OP-M Strength Start: 05/10/24 16:02 Freq: Status: Active Protocol: Document 05/11/24 09:46 MB (Rec: 05/11/24 10:25 MB [id number]) Hip Strength Hip Manual Muscle Testing Left Flexion (L2) 5 Normal Extension (S1) 5 Normal Abduction 5 Normal Adduction 5 Normal External Rotation 5 Normal Internal Rotation 5 Normal Right Flexion (L2) 4+ Good+ Extension (S1) 5 Normal Abduction 5 Normal Adduction 4+ Good+ External Rotation 5 Normal Internal Rotation 4+ Good+ Knee Strength Knee Manual Muscle Testing Left Flexion (S2) 5 Normal Extension (L3) 5 Normal Right Flexion (S2) 5 Normal Extension (L3) 5 Normal Ankle/Foot Strength Ankle and Foot Manual Muscle Testing Left Dorsiflexion (L4) 5 Normal Right Dorsiflexion (L4) 5 Normal Toe Strength Toe Manual Muscle Testing Left Great Toe Extension 5 Normal Right Great Toe Extension 5 Normal PT-OP-Q Treatments Start: 05/10/24 16:02 Freq: Status: Active Protocol: Document 05/26/24 10:48 MB (Rec: 05/26/24 11:38 MB [id number]) Therapeutic Exercises Supine Exercises Hamstring and AP and TFL/ITB stretch Supine Exercise Name Pt to d/c ITB/TFL stretch d/t impingement presentation at right hip Manual Therapy Treatment Consent Patient gave verbal consent for manual Yes treatment Other Other Manual Treatments Pt in B side lying: B rib recoil to mobilize thoracic spine and ribs, QL and paraspinals and pelvis, STM and pelvic mobility left iliopsoas, iliacus and rectus femoris. TrP right iliacus, rectus femoris and TFL. Self-Care/Home Management Treatment Education Patient Education Home Exercise Program Other Education It is possible that impingement type positioning of ITB and TFL stretches provoked right groin pain and ed to stop this exercise and any others that would provoke symptoms. Other exercises currently appropriate per pt and PT, ed in recommendation to follow up with referring provider. Discussed cutting a cork shoe length lift for right shoe and this is not the best option for pt given he wears many shoes PT-OP-T Assessment and Plan Start: 05/10/24 16:02 Freq: Status: Active Protocol: Document 05/26/24 10:48 MB (Rec: 05/26/24 11:38 MB [id number]) Physical Therapy Assessment Rehab Potential Rehabilitation Potential Fair Evaluation Complexity Number of Personal Factors/Comorbidities 1-2 Number of Body Systems Impaired 1-2 Clinical Presentation at Evaluation Evolving Impairments Impairments Gait,Pain,Posture,ROM, Sensation,Soft Tissue Mobility ,Strength Goals 4 Impairment Lack of PT HEP Industrial Staff Nurse Goal (LTG) Pt will perform progressive HEP with I including pelvic realignment exercises, flexibility, balance and strengthening exercises to improve symptoms, alignment, flexibility and strength. LTG Duration 8 weeks 3 Impairment Reports of imbalance Skilled Nursing Goal (LTG) Pt will perform B SLS with opposite leg close to 90/90 hip and knee for at least 1' to improve functional balance. LTG Duration 8 weeks 2 Impairment Right hip weakness Industrial Staff Nurse Goal (LTG) Pt will present with right hip flexion strength to 5/5 to improve functional stability of hip. LTG Duration 8 weeks 1 Impairment Occ right hip giving way with first forward step upon standing from sitting Skilled Nursing Goal (LTG) Pt will report an 85% improvement in episodes of right hip giving way with first forward step upon standing from sitting. LTG Duration 8 weeks Assessment Summary Assessment Given c/o anterior right groin pain and limping with gait today and pt without real change in activity, feel following up with referring provider about possible right hip MRI to check for femoral acetabular or pincer impingement anomalies. Pt with history of significant low back findings from MRI in past . Of course, this is all as referring provider deems appropriate. Would like pt to con't with PT for manual and progressive strengthening and balance work. Pt does feel better after manual work and moving pelvis today. Physical Therapy Plan Frequency and Duration Frequency of Treatment 2x/Week Duration of treatment (weeks) 8 Plan of Care Start Date 05/11/24 Plan of Care End Date 07/09/24 Therapeutic Interventions Therapeutic Interventions Balance Training,Canalithic Repositioning,Home Exercise Program,Joint Mobilizations, Manual Therapy,Neuromuscular Re-education,Patient/Caregiver Education,Self-Care/Home Management,Soft Tissue Mobilization,Taping, Therapeutic Activities, Therapeutic Exercises Modalities Cold Pack/Ice Massage,Electric Stimulation,Hot Packs, Ultrasound Next Visit Focus/Plan Next Note Type Treatment Note Next Visit Plan Ongoing manual work Consider golfer's lift for core and balance LE strengthening such as backwards and side stepping with theraband, single leg heel raises (consider trauma release exercises in future for full LE work-out) Monitor response to therapy and refer back to doctor if needed if suspect hip MRI is appropriate Consider aviator Swrve exercises
--- NOTE | 2024-06-01 11:32 | PT.OTN ---
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 He is doing lifting, jogging, squats, one leg STS, lunging, star jumps, kettle oro swings. Pt sleeps well. He sleeps on his back or his stomach. Pt has not had any falls. Sitting for a long time does not bother him but when he stands up and starts forward, he has trouble with right hip giving way. Pain comes and goes. Prior Treatments and Tests Lumbar MRI 05/01/21 IMPRESSION: Probable impingement of the descending left S1 nerve roots within the left subarticular zone at the L5-S1 level due to a disc extrusion with associated annular fissure. Degenerative changes at L4-L5 also present, without evidence of focal nerve root impingement. B hip x-ray 02/23/24: negative Treatment Goals Patient/Caregiver Goals To identify what the problem is and have things that will make it better. PT-OP-C Subjective Start: 05/10/24 16:02 Freq: Status: Active Protocol: Document 06/01/24 10:47 MB (Rec: 06/01/24 11:32 MB [id number]) OP-PT Subjective Patient Comments Patient Comments Pt felt a little better after last PT treatment. He has not been running for the past two weeks. He has been doing more long car rides recently. PT-OP-F Manual Assessment Start: 05/10/24 16:02 Freq: Status: Active Protocol: Document 05/11/24 09:46 MB (Rec: 05/11/24 13:07 MB [id number]) Manual Assessments Soft Tissue Assessment Soft Tissue Mobility Assessment Increased tension left hip flexor and rectus femoris compared to the right PT-OP-G Mobility & Gait Start: 05/10/24 16:02 Freq: Status: Active Protocol: Document 05/11/24 09:46 MB (Rec: 05/11/24 10:25 MB [id number]) OP Gait Assessment Comments Gait Comments Gait with socks on: increased Robert angle, greater on the right and pt has popping in feet and ankles, tends to hyperextends knees with gait PT-OP-J Posture/Palpation/Skin Start: 05/10/24 16:02 Freq: Status: Active Protocol: Document 05/11/24 09:46 MB (Rec: 05/11/24 10:25 MB [id number]) Posture Evaluation Comments Posture Comments Socks donned: increased posterior cervical musculature buldge on the left, history of right shoulder surgery and right shoulder is higher than the left and scapula is more elevated and protracted and left scapula wings, decreased thoracic kyphosis and lumbar lordosis, mild right thoracic convexity, right iliac crest mildly higher than the left, pt report right leg is shorter than the left. Legs straight in supine, PT can roll left femur well and right femor rolls less and to neutral at best Occ, pt has B lateral leg numbness, more on the left, when he has back trouble PT-OP-L Special Tests Start: 05/10/24 16:02 Freq: Status: Active Protocol: Document 05/11/24 09:46 MB (Rec: 05/11/24 10:25 MB [id number]) Special Tests Hip Special Tests BOYD Comments Negative B Scour Comments Negative on the left and mild discomfort on the right PT-OP-M Strength Start: 05/10/24 16:02 Freq: Status: Active Protocol: Document 05/11/24 09:46 MB (Rec: 05/11/24 10:25 MB [id number]) Hip Strength Hip Manual Muscle Testing Left Flexion (L2) 5 Normal Extension (S1) 5 Normal Abduction 5 Normal Adduction 5 Normal External Rotation 5 Normal Internal Rotation 5 Normal Right Flexion (L2) 4+ Good+ Extension (S1) 5 Normal Abduction 5 Normal Adduction 4+ Good+ External Rotation 5 Normal Internal Rotation 4+ Good+ Knee Strength Knee Manual Muscle Testing Left Flexion (S2) 5 Normal Extension (L3) 5 Normal Right Flexion (S2) 5 Normal Extension (L3) 5 Normal Ankle/Foot Strength Ankle and Foot Manual Muscle Testing Left Dorsiflexion (L4) 5 Normal Right Dorsiflexion (L4) 5 Normal Toe Strength Toe Manual Muscle Testing Left Great Toe Extension 5 Normal Right Great Toe Extension 5 Normal PT-OP-Q Treatments Start: 05/10/24 16:02 Freq: Status: Active Protocol: Document 06/01/24 10:47 MB (Rec: 06/01/24 11:32 MB [id number]) Therapeutic Exercises Supine Exercises One side adductor stretch Supine Exercise Name HEP, pt does not need handout Reps/Minutes 1 minute Comments Much tighter adductors on right Standing Exercises Backwards and side stepping with band Standing Exercise Name HEP Resistance Looped band above knees and around ankles Comments Pubic bone tilt Other Exercises Hip flexor release Comments pt performs with racquet ball Manual Therapy Treatment Consent Patient gave verbal consent for manual Yes treatment Other Other Manual Treatments Pt supine with head supported and STM adductors, medial hamstring on the right, assessed inguinal area and no issues felt, STM quads and iliospoas Self-Care/Home Management Treatment Education Other Education Ed pt on benefits of changing foot position and using cruise control with longer rides and possible cushion under hips, pool noodle behind back to help with posture, hips higher than knees, swapping out driving with , take walking breaks PT-OP-T Assessment and Plan Start: 05/10/24 16:02 Freq: Status: Active Protocol: Document 06/01/24 10:47 MB (Rec: 06/01/24 11:32 MB [id number]) Physical Therapy Assessment Rehab Potential Rehabilitation Potential Fair Evaluation Complexity Number of Personal Factors/Comorbidities 1-2 Number of Body Systems Impaired 1-2 Clinical Presentation at Evaluation Evolving Impairments Impairments Gait,Pain,Posture,ROM, Sensation,Soft Tissue Mobility ,Strength Goals 4 Impairment Lack of PT HEP Usp Goal (LTG) Pt will perform progressive HEP with I including pelvic realignment exercises, flexibility, balance and strengthening exercises to improve symptoms, alignment, flexibility and strength. LTG Duration 8 weeks 3 Impairment Reports of imbalance Project Architect Goal (LTG) Pt will perform B SLS with opposite leg close to 90/90 hip and knee for at least 1' to improve functional balance. LTG Duration 8 weeks 2 Impairment Right hip weakness Usp Goal (LTG) Pt will present with right hip flexion strength to 5/5 to improve functional stability of hip. LTG Duration 8 weeks 1 Impairment Occ right hip giving way with first forward step upon standing from sitting Usp Goal (LTG) Pt will report an 85% improvement in episodes of right hip giving way with first forward step upon standing from sitting. LTG Duration 8 weeks Assessment Summary Assessment Progressed strengthening today and PT sent last treatment note to referring provider. Con't per plan. Physical Therapy Plan Frequency and Duration Frequency of Treatment 2x/Week Duration of treatment (weeks) 8 Plan of Care Start Date 05/11/24 Plan of Care End Date 07/09/24 Therapeutic Interventions Therapeutic Interventions Balance Training,Canalithic Repositioning,Home Exercise Program,Joint Mobilizations, Manual Therapy,Neuromuscular Re-education,Patient/Caregiver Education,Self-Care/Home Management,Soft Tissue Mobilization,Taping, Therapeutic Activities, Therapeutic Exercises Modalities Cold Pack/Ice Massage,Electric Stimulation,Hot Packs, Ultrasound Next Visit Focus/Plan Next Note Type Treatment Note Next Visit Plan Ongoing manual work Consider golfer's lift for core and balance Consider trauma release exercises in future for full LE work-out) Monitor response to therapy and refer back to doctor if needed if suspect hip MRI is appropriate Consider aviator dozen exercises
--- NOTE | 2024-06-04 16:50 | PT.OTN ---
Current Diagnoses Pain in right hip (06/04/24) Physical Therapy Treatment Note PT-OP-A Visit Information Start: 05/10/24 16:02 Freq: Status: Active Protocol: Document 06/04/24 14:44 NBM (Rec: 06/04/24 16:49 NBM [id number]) Out-Patient Physical Therapy Visit Information Visit Information Visit Type Treatment Note Visit Note Progress note next time PT treats pt Visit Start Time 14:37 Visit Stop Time 15:25 Visit Number 8 Number of [employer] Visits 1 Evaluation Information Evaluation Date 05/11/24 PT-OP-B Current Condition Start: 05/10/24 16:02 Freq: Status: Active Protocol: Document 05/11/24 09:46 MB (Rec: 05/11/24 10:25 MB [id number]) Current Condition History of Current Condition Onset 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 He is doing lifting, jogging, squats, one leg STS, lunging, star jumps, kettle oro swings. Pt sleeps well. He sleeps on his back or his stomach. Pt has not had any falls. Sitting for a long time does not bother him but when he stands up and starts forward, he has trouble with right hip giving way. Pain comes and goes. Prior Treatments and Tests Lumbar MRI 05/01/21 IMPRESSION: Probable impingement of the descending left S1 nerve roots within the left subarticular zone at the L5-S1 level due to a disc extrusion with associated annular fissure. Degenerative changes at L4-L5 also present, without evidence of focal nerve root impingement. B hip x-ray 02/23/24: negative Treatment Goals Patient/Caregiver Goals To identify what the problem is and have things that will make it better. PT-OP-C Subjective Start: 05/10/24 16:02 Freq: Status: Active Protocol: Document 06/04/24 14:44 NBM (Rec: 06/04/24 16:49 NBM [id number]) OP-PT Subjective Patient Comments Patient Comments Cal reports pain has been getting worse in the past week and he currently has 3-4/10 R groin pain. He's doing all HEP except for stretch on his back where he brings his leg across with strap (ITB stretch ) because it hurts inside of R groin. PT-OP-F Manual Assessment Start: 05/10/24 16:02 Freq: Status: Active Protocol: Document 05/11/24 09:46 MB (Rec: 05/11/24 13:07 MB [id number]) Manual Assessments Soft Tissue Assessment Soft Tissue Mobility Assessment Increased tension left hip flexor and rectus femoris compared to the right PT-OP-G Mobility & Gait Start: 05/10/24 16:02 Freq: Status: Active Protocol: Document 05/11/24 09:46 MB (Rec: 05/11/24 10:25 MB [id number]) OP Gait Assessment Comments Gait Comments Gait with socks on: increased Robert angle, greater on the right and pt has popping in feet and ankles, tends to hyperextends knees with gait PT-OP-J Posture/Palpation/Skin Start: 05/10/24 16:02 Freq: Status: Active Protocol: Document 05/11/24 09:46 MB (Rec: 05/11/24 10:25 MB [id number]) Posture Evaluation Comments Posture Comments Socks donned: increased posterior cervical musculature buldge on the left, history of right shoulder surgery and right shoulder is higher than the left and scapula is more elevated and protracted and left scapula wings, decreased thoracic kyphosis and lumbar lordosis, mild right thoracic convexity, right iliac crest mildly higher than the left, pt report right leg is shorter than the left. Legs straight in supine, PT can roll left femur well and right femor rolls less and to neutral at best Occ, pt has B lateral leg numbness, more on the left, when he has back trouble PT-OP-L Special Tests Start: 05/10/24 16:02 Freq: Status: Active Protocol: Document 05/11/24 09:46 MB (Rec: 05/11/24 10:25 MB [id number]) Special Tests Hip Special Tests BOYD Comments Negative B Scour Comments Negative on the left and mild discomfort on the right PT-OP-M Strength Start: 05/10/24 16:02 Freq: Status: Active Protocol: Document 05/11/24 09:46 MB (Rec: 05/11/24 10:25 MB [id number]) Hip Strength Hip Manual Muscle Testing Left Flexion (L2) 5 Normal Extension (S1) 5 Normal Abduction 5 Normal Adduction 5 Normal External Rotation 5 Normal Internal Rotation 5 Normal Right Flexion (L2) 4+ Good+ Extension (S1) 5 Normal Abduction 5 Normal Adduction 4+ Good+ External Rotation 5 Normal Internal Rotation 4+ Good+ Knee Strength Knee Manual Muscle Testing Left Flexion (S2) 5 Normal Extension (L3) 5 Normal Right Flexion (S2) 5 Normal Extension (L3) 5 Normal Ankle/Foot Strength Ankle and Foot Manual Muscle Testing Left Dorsiflexion (L4) 5 Normal Right Dorsiflexion (L4) 5 Normal Toe Strength Toe Manual Muscle Testing Left Great Toe Extension 5 Normal Right Great Toe Extension 5 Normal PT-OP-Q Treatments Start: 05/10/24 16:02 Freq: Status: Active Protocol: Document 06/04/24 14:44 NB (Rec: 06/04/24 16:49 [facility] [id number]) Therapeutic Exercises Supine Exercises Hamstring and AP and TFL/ITB stretch Supine Exercise Name HEP review: Pt performs painfree ITB/TFL holding bent knee crossbody Side bilateral Equipment Used /c w/ HS, ITB/TFL modified from /c to no strap Reps/Minutes 45 AP or 45 sec hold Comments R groin pain w/ ITB/TFL stretch /c strap resolves w/ modification; painfree Standing Exercises Backwards and side stepping with band Standing Exercise Name HEP review Resistance Looped green band above knees and around ankles Reps/Minutes 2x6 ea Comments Pubic bone tilt;vc upright trunk, R neutral foot and R forefoot>heel w/ bwd SLS Standing Exercise Name HEP Side bilateral Comments Up to one minute each leg, cues for upright trunk, distant focal point Other Exercises Aviator Daily Dozen Other Exercise Name # 1-12. See Handout. Comments Painfree. Cues R>L neutral foot position, feet hip/kendall width,upright trunk. PT-OP-T Assessment and Plan Start: 05/10/24 16:02 Freq: Status: Active Protocol: Document 06/04/24 14:44 NBM (Rec: 06/04/24 16:49 [facility] [id number]) Physical Therapy Assessment Goals 4 Impairment Lack of PT HEP Snf Goal (LTG) Pt will perform progressive HEP with I including pelvic realignment exercises, flexibility, balance and strengthening exercises to improve symptoms, alignment, flexibility and strength. 06/04/24: Added Aviator Daily Dozen to HEP - HO given. Modifed ITB/TFL stretch from straight leg w/ strap to bent knee without strap, painfree. LTG Duration 8 weeks 3 Impairment Reports of imbalance House Admin Goal (LTG) Pt will perform B SLS with opposite leg close to 90/90 hip and knee for at least 1' to improve functional balance. LTG Duration 8 weeks 2 Impairment Right hip weakness House Admin Goal (LTG) Pt will present with right hip flexion strength to 5/5 to improve functional stability of hip. LTG Duration 8 weeks 1 Impairment Occ right hip giving way with first forward step upon standing from sitting House Admin Goal (LTG) Pt will report an 85% improvement in episodes of right hip giving way with first forward step upon standing from sitting. LTG Duration 8 weeks Assessment Summary Assessment Cal presents w/ 3-4/10 anterior R groin pain which resolves to /10 by end of session. Treatment focus on HEP review and Aviator Daily Dozen exercises. Pt requires consistent cues for R neutral foot positioning, maintaining hip- or shoulder-width foot placement, and upright posture but self-awareness improves w / repetition. Added Aviator Daily Dozen to HEP - HO given. Modifed ITB/TFL stretch from straight leg w/ strap to bent knee without strap in painfree range. Physical Therapy Plan Frequency and Duration Frequency of Treatment 2x/Week Duration of treatment (weeks) 8 Plan of Care Start Date 05/11/24 Plan of Care End Date 07/09/24 Therapeutic Interventions Therapeutic Interventions Balance Training,Canalithic Repositioning,Home Exercise Program,Joint Mobilizations, Manual Therapy,Neuromuscular Re-education,Patient/Caregiver Education,Self-Care/Home Management,Soft Tissue Mobilization,Taping, Therapeutic Activities, Therapeutic Exercises Modalities Cold Pack/Ice Massage,Electric Stimulation,Hot Packs, Ultrasound Next Visit Focus/Plan Next Note Type Treatment Note Next Visit Plan Assess response to aviator dozen exercises added to HEP , and check modified ITB/ TFL stretch still painfree. POC: Ongoing manual work Consider golfer's lift for core and balance Consider trauma release exercises in future for full LE work-out) Monitor response to therapy and refer back to doctor if needed if suspect hip MRI is appropriate
--- NOTE | 2024-06-15 14:18 | PT.OTN ---
Current Diagnoses Pain in right hip (06/15/24) Physical Therapy Treatment Note PT-OP-A Visit Information Start: 05/10/24 16:02 Freq: Status: Active Protocol: Document 06/15/24 13:36 MB (Rec: 06/15/24 14:18 MB [id number]) Out-Patient Physical Therapy Visit Information Visit Information Visit Type Progress Note Visit Start Time 13:36 Visit Stop Time 14:16 Visit Number 9 Number of [employer] Visits 0 Evaluation Information Evaluation Date 05/11/24 PT-OP-B Current Condition Start: 05/10/24 16:02 Freq: Status: Active Protocol: Document 05/11/24 09:46 MB (Rec: 05/11/24 10:25 MB [id number]) Current Condition History of Current Condition Onset Date 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 He is doing lifting, jogging, squats, one leg STS, lunging, star jumps, kettle oro swings. Pt sleeps well. He sleeps on his back or his stomach. Pt has not had any falls. Sitting for a long time does not bother him but when he stands up and starts forward, he has trouble with right hip giving way. Pain comes and goes. Prior Treatments and Tests Lumbar MRI 05/01/21 IMPRESSION: Probable impingement of the descending left S1 nerve roots within the left subarticular zone at the L5-S1 level due to a disc extrusion with associated annular fissure. Degenerative changes at L4-L5 also present, without evidence of focal nerve root impingement. B hip x-ray 02/23/24: negative Treatment Goals Patient/Caregiver Goals To identify what the problem is and have things that will make it better. PT-OP-C Subjective Start: 05/10/24 16:02 Freq: Status: Active Protocol: Document 06/15/24 13:36 MB (Rec: 06/15/24 14:18 MB [id number]) OP-PT Subjective Patient Comments Patient Comments Pt reports that his pain is better since last treatment on 06/04/24. He is doing the aviator dozen and maybe they were helpful. He went skiing last week and he felt right hip pain towards the end and stopped skiing in fact. Pt left a message at doctor's office about an image. PT-OP-F Manual Assessment Start: 05/10/24 16:02 Freq: Status: Active Protocol: Document 05/11/24 09:46 MB (Rec: 05/11/24 13:07 MB [id number]) Manual Assessments Soft Tissue Assessment Soft Tissue Mobility Assessment Increased tension left hip flexor and rectus femoris compared to the right PT-OP-G Mobility & Gait Start: 05/10/24 16:02 Freq: Status: Active Protocol: Document 05/11/24 09:46 MB (Rec: 05/11/24 10:25 MB [id number]) OP Gait Assessment Comments Gait Comments Gait with socks on: increased Robert angle, greater on the right and pt has popping in feet and ankles, tends to hyperextends knees with gait PT-OP-J Posture/Palpation/Skin Start: 05/10/24 16:02 Freq: Status: Active Protocol: Document 05/11/24 09:46 MB (Rec: 05/11/24 10:25 MB [id number]) Posture Evaluation Comments Posture Comments Socks donned: increased posterior cervical musculature buldge on the left, history of right shoulder surgery and right shoulder is higher than the left and scapula is more elevated and protracted and left scapula wings, decreased thoracic kyphosis and lumbar lordosis, mild right thoracic convexity, right iliac crest mildly higher than the left, pt report right leg is shorter than the left. Legs straight in supine, PT can roll left femur well and right femor rolls less and to neutral at best Occ, pt has B lateral leg numbness, more on the left, when he has back trouble PT-OP-L Special Tests Start: 05/10/24 16:02 Freq: Status: Active Protocol: Document 05/11/24 09:46 MB (Rec: 05/11/24 10:25 MB [id number]) Special Tests Hip Special Tests BOYD Comments Negative B Scour Comments Negative on the left and mild discomfort on the right PT-OP-M Strength Start: 05/10/24 16:02 Freq: Status: Active Protocol: Document 05/11/24 09:46 MB (Rec: 05/11/24 10:25 MB [id number]) Hip Strength Hip Manual Muscle Testing Left Flexion (L2) 5 Normal Extension (S1) 5 Normal Abduction 5 Normal Adduction 5 Normal External Rotation 5 Normal Internal Rotation 5 Normal Right Flexion (L2) 4+ Good+ Extension (S1) 5 Normal Abduction 5 Normal Adduction 4+ Good+ External Rotation 5 Normal Internal Rotation 4+ Good+ Knee Strength Knee Manual Muscle Testing Left Flexion (S2) 5 Normal Extension (L3) 5 Normal Right Flexion (S2) 5 Normal Extension (L3) 5 Normal Ankle/Foot Strength Ankle and Foot Manual Muscle Testing Left Dorsiflexion (L4) 5 Normal Right Dorsiflexion (L4) 5 Normal Toe Strength Toe Manual Muscle Testing Left Great Toe Extension 5 Normal Right Great Toe Extension 5 Normal PT-OP-Q Treatments Start: 05/10/24 16:02 Freq: Status: Active Protocol: Document 06/15/24 13:36 MB (Rec: 06/15/24 14:18 MB [id number]) Cardio Equipment Treadmill Other 1/2 mile on 1 incline up to 6 mi and hour, then backwards walking Therapeutic Exercises Other Exercises MMT Comments Performed today and see goals for findings HEP review on progress note Comments Verbal review today on progress note date Trauma Release Exercises Other Exercise Name HEP and provided handouts Reps/Minutes Ankle rolls and stretches Comments To fatigue heel raises and quad mini squats, wall sit and hip flexor bridge PT-OP-T Assessment and Plan Start: 05/10/24 16:02 Freq: Status: Active Protocol: Document 06/15/24 13:36 MB (Rec: 06/15/24 14:18 MB [id number]) Physical Therapy Assessment Rehab Potential Rehabilitation Potential Fair Evaluation Complexity Number of Personal Factors/Comorbidities 1-2 Number of Body Systems Impaired 1-2 Clinical Presentation at Evaluation Evolving Impairments Impairments Gait,Pain,Posture,ROM, Sensation,Soft Tissue Mobility ,Strength Goals 4 Impairment Lack of PT HEP Handle Machine Operator Goal (LTG) Pt will perform progressive HEP with I including pelvic realignment exercises, flexibility, balance and strengthening exercises to improve symptoms, alignment, flexibility and strength. 06/15/24: Pt is performing pelvic realignment exercises, SLS and most days, the aviator dozen exercises. He does the doorway stretch as well when he goes through doorway. LTG Duration 8 weeks 3 Impairment Reports of imbalance Handle Machine Operator Goal (LTG) Pt will perform B SLS with opposite leg close to 90/90 hip and knee for at least 1' to improve functional balance. 06/15/24: 1' L SLS; 1' R SLS LTG Duration Met goal 2 Impairment Right hip weakness Fpc Goal (LTG) Pt will present with right hip flexion strength to 5/5 to improve functional stability of hip. 06/15/24: Hip flexion right 5/5 LTG Duration Met goal 1 Impairment Occ right hip giving way with first forward step upon standing from sitting Handle Machine Operator Goal (LTG) Pt will report an 85% improvement in episodes of right hip giving way with first forward step upon standing from sitting. 06/15/24: There has been no improvement in this. LTG Duration 8 weeks Assessment Summary Assessment Pt has met balance and right hip flexor strength goals since starting PT. He is performing HEP exercises. His pain and giving way sensation has not improved at all since he has started PT. Anticipate 3 or less treatments left. Sent message to recommend right hip MRI to provider previously. Physical Therapy Plan Frequency and Duration Frequency of Treatment 2x/Week Duration of treatment (weeks) 8 Plan of Care Start Date 05/11/24 Plan of Care End Date 07/09/24 Therapeutic Interventions Therapeutic Interventions Balance Training,Canalithic Repositioning,Home Exercise Program,Joint Mobilizations, Manual Therapy,Neuromuscular Re-education,Patient/Caregiver Education,Self-Care/Home Management,Soft Tissue Mobilization,Taping, Therapeutic Activities, Therapeutic Exercises Modalities Cold Pack/Ice Massage,Electric Stimulation,Hot Packs, Ultrasound Next Visit Focus/Plan Next Note Type Treatment Note Next Visit Plan Ongoing manual work Consider golfer's lift for core and balance: plank
--- NOTE | 2024-06-23 15:50 | PT.OTN ---
Current Diagnoses Pain in right hip (06/23/24) Physical Therapy Treatment Note PT-OP-A Visit Information Start: 05/10/24 16:02 Freq: Status: Active Protocol: Document 06/23/24 15:10 NBM (Rec: 06/23/24 15:50 NBM [id number]) Out-Patient Physical Therapy Visit Information Visit Information Visit Type Treatment Note Visit Note Pt late Visit Start Time 15:22 Visit Stop Time 15:35 Visit Number 13 Number of FOUNDRY PATTERNMAKER Visits 1 Evaluation Information Evaluation Date 05/11/24 PT-OP-B Current Condition Start: 05/10/24 16:02 Freq: Status: Active Protocol: Document 05/11/24 09:46 MB (Rec: 05/11/24 10:25 MB [id number]) Current Condition History of Current Condition Onset Date 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 He is doing lifting, jogging, squats, one leg STS, lunging, star jumps, kettle oro swings. Pt sleeps well. He sleeps on his back or his stomach. Pt has not had any falls. Sitting for a long time does not bother him but when he stands up and starts forward, he has trouble with right hip giving way. Pain comes and goes. Prior Treatments and Tests Lumbar MRI 05/01/21 IMPRESSION: Probable impingement of the descending left S1 nerve roots within the left subarticular zone at the L5-S1 level due to a disc extrusion with associated annular fissure. Degenerative changes at L4-L5 also present, without evidence of focal nerve root impingement. B hip x-ray 02/23/24: negative Treatment Goals Patient/Caregiver Goals To identify what the problem is and have things that will make it better. PT-OP-C Subjective Start: 05/10/24 16:02 Freq: Status: Active Protocol: Document 06/23/24 15:10 NBM (Rec: 06/23/24 15:50 NBM [id number]) OP-PT Subjective Patient Comments Patient Comments Cal reports hip is mild today and a lot of times lately he hasn't even noticied it at all . MRI is still pending scheduling. He feels comfortable. PT-OP-F Manual Assessment Start: 05/10/24 16:02 Freq: Status: Active Protocol: Document 05/11/24 09:46 MB (Rec: 05/11/24 13:07 MB [id number]) Manual Assessments Soft Tissue Assessment Soft Tissue Mobility Assessment Increased tension left hip flexor and rectus femoris compared to the right PT-OP-G Mobility & Gait Start: 05/10/24 16:02 Freq: Status: Active Protocol: Document 05/11/24 09:46 MB (Rec: 05/11/24 10:25 MB [id number]) OP Gait Assessment Comments Gait Comments Gait with socks on: increased Robert angle, greater on the right and pt has popping in feet and ankles, tends to hyperextends knees with gait PT-OP-J Posture/Palpation/Skin Start: 05/10/24 16:02 Freq: Status: Active Protocol: Document 05/11/24 09:46 MB (Rec: 05/11/24 10:25 MB [id number]) Posture Evaluation Comments Posture Comments Socks donned: increased posterior cervical musculature buldge on the left, history of right shoulder surgery and right shoulder is higher than the left and scapula is more elevated and protracted and left scapula wings, decreased thoracic kyphosis and lumbar lordosis, mild right thoracic convexity, right iliac crest mildly higher than the left, pt report right leg is shorter than the left. Legs straight in supine, PT can roll left femur well and right femor rolls less and to neutral at best Occ, pt has B lateral leg numbness, more on the left, when he has back trouble PT-OP-L Special Tests Start: 05/10/24 16:02 Freq: Status: Active Protocol: Document 05/11/24 09:46 MB (Rec: 05/11/24 10:25 MB [id number]) Special Tests Hip Special Tests BOYD Comments Negative B Scour Comments Negative on the left and mild discomfort on the right PT-OP-M Strength Start: 05/10/24 16:02 Freq: Status: Active Protocol: Document 05/11/24 09:46 MB (Rec: 05/11/24 10:25 MB [id number]) Hip Strength Hip Manual Muscle Testing Left Flexion (L2) 5 Normal Extension (S1) 5 Normal Abduction 5 Normal Adduction 5 Normal External Rotation 5 Normal Internal Rotation 5 Normal Right Flexion (L2) 4+ Good+ Extension (S1) 5 Normal Abduction 5 Normal Adduction 4+ Good+ External Rotation 5 Normal Internal Rotation 4+ Good+ Knee Strength Knee Manual Muscle Testing Left Flexion (S2) 5 Normal Extension (L3) 5 Normal Right Flexion (S2) 5 Normal Extension (L3) 5 Normal Ankle/Foot Strength Ankle and Foot Manual Muscle Testing Left Dorsiflexion (L4) 5 Normal Right Dorsiflexion (L4) 5 Normal Toe Strength Toe Manual Muscle Testing Left Great Toe Extension 5 Normal Right Great Toe Extension 5 Normal PT-OP-Q Treatments Start: 05/10/24 16:02 Freq: Status: Active Protocol: Document 06/23/24 15:10 NBM (Rec: 06/23/24 15:50 NBM [id number]) Self-Care/Home Management Treatment Education Patient Education Home Exercise Program Other Education See Senior Living Goals 1 and 3. PT-OP-T Assessment and Plan Start: 05/10/24 16:02 Freq: Status: Active Protocol: Document 06/23/24 15:10 NBM (Rec: 06/23/24 15:50 NBM [id number]) Physical Therapy Assessment Goals 4 Impairment Lack of PT HEP Clean Energy Policy Analyst Goal (LTG) Pt will perform progressive HEP with I including pelvic realignment exercises, flexibility, balance and strengthening exercises to improve symptoms, alignment, flexibility and strength. 06/15/24: Pt is performing pelvic realignment exercises, SLS and most days, the aviator dozen exercises. He does the doorway stretch as well when he goes through doorway. 06/23/24: Pt reports daily performance of HEP exercises with I including pelvic realignment exercises, flexibility, balance and strengthening exercises. LTG Duration 8 weeks (06/23/24: goal met) 3 Impairment Reports of imbalance Senior Living Goal (LTG) Pt will perform B SLS with opposite leg close to 90/90 hip and knee for at least 1' to improve functional balance. 06/15/24: 1' L SLS; 1' R SLS LTG Duration Met goal 2 Impairment Right hip weakness Clean Energy Policy Analyst Goal (LTG) Pt will present with right hip flexion strength to 5/5 to improve functional stability of hip. 06/15/24: Hip flexion right 5/5 LTG Duration Met goal 1 Impairment Occ right hip giving way with first forward step upon standing from sitting Senior Living Goal (LTG) Pt will report an 85% improvement in episodes of right hip giving way with first forward step upon standing from sitting. 06/15/24: There has been no improvement in this. 06/23/24: Pt reports this is an issue only at times and sometimes he forgets this is an issue completely, even after long car rides. He last noticed it about a week and a half ago. Aviator Dozen seemed to help a lot with this since 06/04/24. Pt i/s in gluteal squeeze prior to initiating STS for improved posterior chain activation. LTG Duration 8 weeks (06/23/24: progressing ) Assessment Summary Assessment Pt reprots MRI referral still pending as of today. Per discussion with evaluating PT and pt discharge after today; short session accordingly. Treatment focus on assessing remaining goals 1 and 4. LTG 1 : pt reports improvement since starting Aviator Daily Dozen 06/04/24, with one instance reported one and half weeks ago. Edu to pt to activate gluteal muscles with gluteal squeezes prior to intiating sit to stand and first step for improved posterior chain reaction and possible carryover of reduced instances of R hip giving way w/ first step upon standing from sitting. LTG 4: Met today as pt reports daily performance of HEP exercises with I including pelvic realignment exercises, flexibility, balance and strengthening exercises. welcome desk agent notifed to cancel remaining visits accordingly. Physical Therapy Plan Frequency and Duration Frequency of Treatment 2x/Week Duration of treatment (weeks) 8 Plan of Care Start Date 05/11/24 Plan of Care End Date 07/09/24 Therapeutic Interventions Therapeutic Interventions Balance Training,Canalithic Repositioning,Home Exercise Program,Joint Mobilizations, Manual Therapy,Neuromuscular Re-education,Patient/Caregiver Education,Self-Care/Home Management,Soft Tissue Mobilization,Taping, Therapeutic Activities, Therapeutic Exercises Modalities Cold Pack/Ice Massage,Electric Stimulation,Hot Packs, Ultrasound Next Visit Focus/Plan Next Note Type Treatment Note Next Visit Plan D/C today per evaluating PT and pt agreement.
--- NOTE | 2024-06-23 15:53 | PT.OPDS ---
Current Diagnoses Pain in right hip (06/23/24) Visit Care Team Role Provider Type Bebeto Roberson PA-C Family Provider Non-Staff Primary Care Provider Specialty: Medical Address: [address] [place] [address], [id number] Phone: Email: Lan Howe PA-C Attending Provider Non-Staff Referring Provider Specialty: Medical Address: [address] [place] [address], [place], [address] Email: Visit Number Visit Number 13 Discharge Summary PT-OP-B Current Condition Start: 05/10/24 16:02 Freq: Status: Active Protocol: Document 05/11/24 09:46 MB (Rec: 05/11/24 10:25 MB [id number]) Current Condition History of Current Condition Onset Date 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 He is doing lifting, jogging, squats, one leg STS, lunging, star jumps, kettle oro swings. Pt sleeps well. He sleeps on his back or his stomach. Pt has not had any falls. Sitting for a long time does not bother him but when he stands up and starts forward, he has trouble with right hip giving way. Pain comes and goes. Prior Treatments and Tests Lumbar MRI 05/01/21 IMPRESSION: Probable impingement of the descending left S1 nerve roots within the left subarticular zone at the L5-S1 level due to a disc extrusion with associated annular fissure. Degenerative changes at L4-L5 also present, without evidence of focal nerve root impingement. B hip x-ray 02/23/24: negative Treatment Goals Patient/Caregiver Goals To identify what the problem is and have things that will make it better. PT-OP-C Subjective Start: 05/10/24 16:02 Freq: Status: Active Protocol: Document 06/23/24 15:10 NBM (Rec: 06/23/24 15:50 NBM [id number]) OP-PT Subjective Patient Comments Patient Comments Cal reports hip is mild today and a lot of times lately he hasn't even noticied it at all . MRI is still pending scheduling. He feels comfortable. PT-OP-F Manual Assessment Start: 05/10/24 16:02 Freq: Status: Active Protocol: Document 05/11/24 09:46 MB (Rec: 05/11/24 13:07 MB [id number]) Manual Assessments Soft Tissue Assessment Soft Tissue Mobility Assessment Increased tension left hip flexor and rectus femoris compared to the right PT-OP-G Mobility & Gait Start: 05/10/24 16:02 Freq: Status: Active Protocol: Document 05/11/24 09:46 MB (Rec: 05/11/24 10:25 MB [id number]) OP Gait Assessment Comments Gait Comments Gait with socks on: increased Robert angle, greater on the right and pt has popping in feet and ankles, tends to hyperextends knees with gait PT-OP-J Posture/Palpation/Skin Start: 05/10/24 16:02 Freq: Status: Active Protocol: Document 05/11/24 09:46 MB (Rec: 05/11/24 10:25 MB [id number]) Posture Evaluation Comments Posture Comments Socks donned: increased posterior cervical musculature buldge on the left, history of right shoulder surgery and right shoulder is higher than the left and scapula is more elevated and protracted and left scapula wings, decreased thoracic kyphosis and lumbar lordosis, mild right thoracic convexity, right iliac crest mildly higher than the left, pt report right leg is shorter than the left. Legs straight in supine, PT can roll left femur well and right femor rolls less and to neutral at best Occ, pt has B lateral leg numbness, more on the left, when he has back trouble PT-OP-L Special Tests Start: 05/10/24 16:02 Freq: Status: Active Protocol: Document 05/11/24 09:46 MB (Rec: 05/11/24 10:25 MB [id number]) Special Tests Hip Special Tests BOYD Comments Negative B Scour Comments Negative on the left and mild discomfort on the right PT-OP-M Strength Start: 05/10/24 16:02 Freq: Status: Active Protocol: Document 05/11/24 09:46 MB (Rec: 05/11/24 10:25 MB [id number]) Hip Strength Hip Manual Muscle Testing Left Flexion (L2) 5 Normal Extension (S1) 5 Normal Abduction 5 Normal Adduction 5 Normal External Rotation 5 Normal Internal Rotation 5 Normal Right Flexion (L2) 4+ Good+ Extension (S1) 5 Normal Abduction 5 Normal Adduction 4+ Good+ External Rotation 5 Normal Internal Rotation 4+ Good+ Knee Strength Knee Manual Muscle Testing Left Flexion (S2) 5 Normal Extension (L3) 5 Normal Right Flexion (S2) 5 Normal Extension (L3) 5 Normal Ankle/Foot Strength Ankle and Foot Manual Muscle Testing Left Dorsiflexion (L4) 5 Normal Right Dorsiflexion (L4) 5 Normal Toe Strength Toe Manual Muscle Testing Left Great Toe Extension 5 Normal Right Great Toe Extension 5 Normal PT-OP-T Assessment and Plan Start: 05/10/24 16:02 Freq: Status: Active Protocol: Document 06/23/24 15:10 NB (Rec: 06/23/24 15:50 [facility] [id number]) Physical Therapy Assessment Goals 4 Impairment Lack of PT HEP Detention Goal (LTG) Pt will perform progressive HEP with I including pelvic realignment exercises, flexibility, balance and strengthening exercises to improve symptoms, alignment, flexibility and strength. 06/15/24: Pt is performing pelvic realignment exercises, SLS and most days, the aviator dozen exercises. He does the doorway stretch as well when he goes through doorway. 06/23/24: Pt reports daily performance of HEP exercises with I including pelvic realignment exercises, flexibility, balance and strengthening exercises. LTG Duration 8 weeks (06/23/24: goal met) 3 Impairment Reports of imbalance Detention Goal (LTG) Pt will perform B SLS with opposite leg close to 90/90 hip and knee for at least 1' to improve functional balance. 06/15/24: 1' L SLS; 1' R SLS LTG Duration Met goal 2 Impairment Right hip weakness Detention Goal (LTG) Pt will present with right hip flexion strength to 5/5 to improve functional stability of hip. 06/15/24: Hip flexion right 5/5 LTG Duration Met goal 1 Impairment Occ right hip giving way with first forward step upon standing from sitting Industrial Gas Fitter Helper Goal (LTG) Pt will report an 85% improvement in episodes of right hip giving way with first forward step upon standing from sitting. 06/15/24: There has been no improvement in this. 06/23/24: Pt reports this is an issue only at times and sometimes he forgets this is an issue completely, even after long car rides. He last noticed it about a week and a half ago. Aviator Dozen seemed to help a lot with this since 06/04/24. Pt i/s in gluteal squeeze prior to initiating STS for improved posterior chain activation. LTG Duration 8 weeks (06/23/24: progressing ) Assessment Summary Assessment Pt reprots MRI referral still pending as of today. Per discussion with evaluating PT and pt discharge after today; short session accordingly. Treatment focus on assessing remaining goals 1 and 4. LTG 1 : pt reports improvement since starting Aviator Daily Dozen 06/04/24, with one instance reported one and half weeks ago. Edu to pt to activate gluteal muscles with gluteal squeezes prior to intiating sit to stand and first step for improved posterior chain reaction and possible carryover of reduced instances of R hip giving way w/ first step upon standing from sitting. LTG 4: Met today as pt reports daily performance of HEP exercises with I including pelvic realignment exercises, flexibility, balance and strengthening exercises. desktop publishing specialist notifed to cancel remaining visits accordingly. Physical Therapy Plan Frequency and Duration Frequency of Treatment 2x/Week Duration of treatment (weeks) 8 Plan of Care Start Date 05/11/24 Plan of Care End Date 07/09/24 Therapeutic Interventions Therapeutic Interventions Balance Training,Canalithic Repositioning,Home Exercise Program,Joint Mobilizations, Manual Therapy,Neuromuscular Re-education,Patient/Caregiver Education,Self-Care/Home Management,Soft Tissue Mobilization,Taping, Therapeutic Activities, Therapeutic Exercises Modalities Cold Pack/Ice Massage,Electric Stimulation,Hot Packs, Ultrasound Next Visit Focus/Plan Next Note Type Treatment Note Next Visit Plan D/C today per evaluating PT and pt agreement.
== END 2024-07-01 09:35 | disposition home or self-care (01) ==
LOC: PHYS 15:15
PROVIDERS: Family Provider Physician Assistant; PCP Physician Assistant; Referring Provider Physician Assistant; Visit Provider Physician Assistant
DX: M25.551 Pain in right hip (principal)
CPT/HCPCS: 97110; 97140; 97161; 97535